=== PATIENT | female | born 1975 | race Caucasian/White ===

== ENCOUNTER 2016-09-18 14:23 | Emergency (ER) | payer OTHER ==
[~2016-09-18] VITALS: Ht 167.6 cm; Wt 81.0 kg
[2016-09-18 15:18] VITALS: Ht 167.6 cm; Wt 81.0 kg
--- NOTE | 2016-09-18 17:18 | ERD ---
ER Documentation Chief Complaint Date/Time DATE: 09/18/16 TIME: 17:17 Chief Complaint VAG BLEEDING AND 9 WEEKS HPI This is a 40-year-old female who presents to the emergency department today complaining of some vaginal bleeding that started stable she was at work. Patient states she is 9 weeks . Patient states she is scheduled to see her [employer] M[employer]INE on October 03. She has some nausea. Denies any abdominal pain, fevers or chills. ROS All systems reviewed and are negative except as per history of present illness. Medications Home Meds Active Scripts Ondansetron Hcl* (Zofran*) 4 Mg Tablet, 4 MG PO Q6H for NAUSEA AND/OR VOMITING, #30 TAB Prov:BERHANE PARSONS PA-C 09/18/16 Acetaminophen* (Tylophen*) 500 Mg Capsule, 1 CAP PO Q6H Y for PAIN AND OR ELEVATED TEMP, #30 CAP Prov:BERHANE PARSONS PA-C 09/18/16 Allergies Allergies: Coded Allergies: No Known Allergies (Verified Allergy, Mild, 07/07/16) PMhx/Soc History of Surgery: No Anesthesia Reaction: No Hx Neurological Disorder: No Hx Respiratory Disorders: No Hx Cardiac Disorders: No Hx Psychiatric Problems: No Hx Miscellaneous Medical Probl: Yes (DM) Hx Alcohol Use: No Hx Substance Use: No Hx Tobacco Use: No Physical Exam Vitals Vital Signs Date Time Temp Pulse Resp B/P Pulse Ox O2 Delivery O2 Flow Rate FiO2 09/18/16 15:18 98.5 84 18 110/68 98 Physical Exam Const: No acute distress Head: Atraumatic Eyes: Normal Conjunctiva ENT: Normal External Ears, Nose and Mouth. Neck: Full range of motion..~ No meningismus. Resp: Clear to auscultation bilaterally Cardio: Regular rate and rhythm, no murmurs Abd: Soft, non tender, non distended. Normal bowel sounds. No right lower quadrant pain. No left lower quadrant pain. Skin: No petechiae or rashes Back: No midline or flank tenderness Ext: No cyanosis, or edema Neur: Awake and alert Psych: Normal Mood and Affect Result Diagram: 09/18/16 9731 Results 24 hrs Laboratory Tests Test 09/18/16 17:28 09/18/16 17:55 Basophils # 0.010^3/ul Basophils % 0.4% Beta HCG, Quantitative 37508.0mIU/ml Blood Morphology Comment Eosinophils # 0.410^3/ul Eosinophils % 3.1% Hematocrit 41.5% Hemoglobin 13.9g/dl Lymphocytes # 3.310^3/ul Lymphocytes % 28.5% Mean Corpuscular Hemoglobin 28.3pg Mean Corpuscular Hemoglobin Concent 33.6g/dl Mean Corpuscular Volume 84.3fl Mean Platelet Volume 7.8fl Monocytes # 0.610^3/ul Monocytes % 4.8% Neutrophils # 7.210^3/ul Neutrophils % 63.2% Nucleated Red Blood Cells # 0.010^3/ul Nucleated Red Blood Cells % 0.0/100WBC Platelet Count 68472^3/UL Red Blood Count 4.9310^6/ul Red Cell Distribution Width 12.7% White Blood Count 11.410^3/ul Urine Bilirubin NEGATIVE Urine Clarity CLEAR Urine Color LT. YELLOW Urine Glucose 0.25%% Urine Hemoglobin NEGATIVE Urine Ketones NEGATIVE Urine Leukocyte Esterase NEGATIVE Urine Nitrite NEGATIVE Urine Specific [place] >=1.030 Urine Total Protein NEGATIVE Urine Urobilinogen 0.2 E.U./dL Urine pH 6.0 Procedures/MDM This is a 40-year-old female who presents to the emergency department complaining of vaginal bleeding that started today while at work. Patient is presently 9 weeks . Upon review of old medical records patient was seen here actually 4 months ago for vaginal bleeding in and had a miscarriage at that time. She was also seen approximately one month ago for elevated blood glucose after being sent here by her clinic. Given patient's vaginal bleeding at this time I did obtain an OB workup. Laboratory work shows a mildly elevated white blood cell count. She is not anemic. Her platelets are within normal limits. UA negative for infection. Rh status O+ beta Quant hCG 20938.0 Ultrasound shows a single live intrauterine with an estimated gestational age of 9 weeks and 2 days with estimated date of delivery of 2016. There is no free fluid or adnexal masses. There is a small subchorionic hemorrhage and this may be the cause of the patient's small vaginal bleeding. Patient did not have any pain on physical exam. Low suspicion for any acute surgical abdomen. She denied any medication for nausea. Patient will be given a prescription for Tylenol and Zofran. She was instructed to follow-up in the next [address] Holder office. At this time the patient is stable for discharge and outpatient management. Patient should follow up with their PCP in the next 1-2 days. They may return to the emergency department sooner for any persistent or worsening of symptoms. Patient understood and agreed with the plan. . Departure Diagnosis: Primary Impression: Vaginal bleeding in patient at less than 20 weeks gestation Additional Impression: Subchorionic hemorrhage in first trimester Condition: BERHANE Shannon PA-C Sep 18, 2016 17:18
[2016-09-18 17:36] LABS: BASOPHILS % 0.4 % (0.0-2.0); EOSINOPHILS # 0.4 10^3/ul (0.0-0.5); EOSINOPHILS % 3.1 % (0.0-7.0); HEMATOCRIT 41.5 % (37.0-47.0); HEMOGLOBIN 13.9 g/dl (12.0-16.0); LYMPHOCYTES # 3.3 10^3/ul (0.8-2.9); LYMPHOCYTES % 28.5 % (15.0-51.0); MEAN CORPUSCULAR HEMOGLOBIN 28.3 pg (29.0-33.0); MEAN CORPUSCULAR HGB CONC 33.6 g/dl (32.0-37.0); MEAN CORPUSCULAR VOLUME 84.3 fl (82.0-101.0); MEAN PLATELET VOLUME 7.8 fl (7.4-10.4); MONOCYTE # 0.6 10^3/ul (0.3-0.9); MONOCYTES % 4.8 % (0.0-11.0); NEUTROPHIL # 7.2 10^3/ul (1.6-7.5); NEUTROPHILS % 63.2 % (39.0-77.0); PLATELET COUNT 292 10^3/UL (140-440); RED BLOOD COUNT 4.93 10^6/ul (4.20-5.40); RED CELL DISTRIBUTION WIDTH 12.7 % (11.5-14.5); UNCORRECTED WBC 11.4 10^3/ul (4.8-10.8); WHITE BLOOD COUNT 11.4 10^3/ul (4.8-10.8)
[2016-09-18 17:39] LABS: CONDITION 1
[2016-09-18 18:30] LABS: ADD UMIC NO; URINE BILIRUBIN (Dip) NEGATIVE (NEGATIVE); URINE BLOOD (Dip) NEGATIVE (NEGATIVE); URINE COLOR LT. YELLOW (YELLOW); URINE KETONES (Dip) NEGATIVE (NEGATIVE); URINE LEUKOCYTE ESTERASE (Dip) NEGATIVE (NEGATIVE); URINE NITRITE (Dip) NEGATIVE (NEGATIVE); URINE TOTAL PROTEIN (Dip) NEGATIVE (NEGATIVE); URINE UROBILINOGEN (Dip) 0.2 E.U./dL (0.1-1.0)
[2016-09-18] MEDS ORDERED: ONDA4TAB8 PO (20:03)
[2016-09-18] MEDS ORDERED: ACET500C5 PO (20:03)
== END 2016-09-18 20:19 | disposition home or self-care (01) ==
LOC: FTE 14:23
DX: O20.9 Hemorrhage in early pregnancy, unspecified (principal); O24.111 Pre-existing type 2 diabetes mellitus, in pregnancy, first trimester; E11.9 Type 2 diabetes mellitus without complications; R11.0 Nausea; Z3A.09 9 weeks gestation of pregnancy
CPT/HCPCS: 36415; 76801; 81003; 84702; 85025; 86900; 86901; Z7502

== ENCOUNTER 2016-09-24 18:24 | Emergency (ER) | payer OTHER ==
[~2016-09-24] VITALS: Ht 170.2 cm; Wt 83.5 kg
[~2016-09-24 18:24] MED LIST: ACET500C5 PO; ONDA4TAB8 PO
[2016-09-24 18:39] VITALS: Ht 170.2 cm; Wt 83.5 kg
--- NOTE | 2016-09-24 19:42 | ERD ---
ER Documentation Chief Complaint Date/Time DATE: 09/24/16 TIME: 19:41 Chief Complaint 10 WKS . STARTED HAVING LLQ PAIN TODAY AND SCANT VAG BLEED HPI 40-year-old female presents here in emergency department for complaints of left upper quadrant abdominal pain, vaginal bleeding started today. Patient is approximately 10 weeks . Patient is 5 para 2 2. Last menstruation 07/06/2016. Patient is complaining of left lower quadrant abdominal pain, sharp pain, 4/10 scale, intermittent accompanying the vaginal bleeding. Patient left prescribed. Patient denies any fever or chills. Patient denies any diarrhea or constipation. Patient denies any vomiting. ROS All systems reviewed and are negative except as per history of present illness. Medications Home Meds Active Scripts Ondansetron Hcl* (Zofran*) 4 Mg Tablet, 4 MG PO Q6H for NAUSEA AND/OR VOMITING, #30 TAB Prov:BERHANE PARSONS PA-C 09/18/16 Acetaminophen* (Tylophen*) 500 Mg Capsule, 1 CAP PO Q6H Y for PAIN AND OR ELEVATED TEMP, #30 CAP Prov:BERHANE PARSONS PA-C 09/18/16 Allergies Allergies: Coded Allergies: No Known Allergies (Verified Allergy, Mild, 07/07/16) PMhx/Soc Medical and Surgical Hx: pt denies Surgical Hx History of Surgery: No Anesthesia Reaction: No Hx Neurological Disorder: No Hx Respiratory Disorders: No Hx Cardiac Disorders: No Hx Psychiatric Problems: No Hx Miscellaneous Medical Probl: Yes (DM) Hx Alcohol Use: No Hx Substance Use: No Hx Tobacco Use: No Smoking Status: Never smoker FmHx Family History: No coronary disease, No diabetes, No other Physical Exam Vitals Vital Signs Date Time Temp Pulse Resp B/P Pulse Ox O2 Delivery O2 Flow Rate FiO2 09/24/16 18:39 98.0 83 16 114/69 99 Physical Exam GENERAL: The patient is well developed and appropriate for usual state of health, in no apparent distress. CHEST: Clear to auscultation bilaterally. There are no rales, wheezes or rhonchi. HEART: Regular rate and rhythm. No murmurs, clicks, rubs or gallops. No S3 or S4. ABDOMEN: Soft, nontender and nondistended. Good bowel sounds. No rebound or guarding. No gross peritonitis. No gross organomegaly or masses. No Harkins sign or McBurney point tenderness. BACK: No midline or flank tenderness. EXTREMITIES: Equal pulses bilaterally. There is no peripheral clubbing, cyanosis or edema. No focal swelling or erythema. Full range of motion. Grossly neurovascularly intact. NEURO: Alert and oriented. Cranial nerves 2-12 intact. Motor strength in all 4 extremities with 5/5 strength. Sensation grossly intact. Normal speech and gait. SKIN: There is no apparent rash or petechia. The skin is warm and dry. HEMATOLOGIC AND LYMPHATIC: There is no evidence of excessive bruising or lymphedema. No gross cervical, axillary, or inguinal lymphadenopathy. VAGINAL: Small amount of blood in the vaginal vault. The cervical os is closed. No neck for tenderness or cervical motion tenderness. Result Diagram: 09/24/16194409/24/161944 Results 24 hrs Laboratory Tests Test 09/24/16 19:45 Anion Gap 16 Basophils # 0.010^3/ul Basophils % 0.4% Beta HCG, Quantitative 48734.0mIU/ml Blood Morphology Comment Blood Urea Nitrogen 12mg/dl Calcium Level 9.6mg/dl Carbon Dioxide Level 26mmol/L Chloride Level 101mmol/L Creatinine 0.54mg/dl Eosinophils # 0.310^3/ul Eosinophils % 2.2% Glucose Level 261mg/dl Hematocrit 40.8% Hemoglobin 13.9g/dl Lymphocytes # 2.910^3/ul Lymphocytes % 24.3% Mean Corpuscular Hemoglobin 28.5pg Mean Corpuscular Hemoglobin Concent 34.0g/dl Mean Corpuscular Volume 83.9fl Mean Platelet Volume 8.4fl Monocytes # 0.510^3/ul Monocytes % 4.1% Neutrophils # 8.310^3/ul Neutrophils % 69.0% Nucleated Red Blood Cells # 0.010^3/ul Nucleated Red Blood Cells % 0.0/100WBC Platelet Count 16706^3/UL Potassium Level 4.2mmol/L Red Blood Count 4.8710^6/ul Red Cell Distribution Width 12.5% Sodium Level 139mmol/L Urine Bilirubin NEGATIVE Urine Clarity CLEAR Urine Color LT. YELLOW Urine Glucose >=1000% Urine Hemoglobin NEGATIVE Urine Ketones 15 Urine Leukocyte Esterase NEGATIVE Urine Nitrite NEGATIVE Urine Specific [place] 1.025 Urine Total Protein NEGATIVE Urine Urobilinogen 0.2 E.U./dL Urine pH 5.5 White Blood Count 12.110^3/ul PROCEDURE: OBSTETRICAL ULTRASOUND WITH ENDOVAGINAL IMAGES CLINICAL INDICATION: Patient experiencing Vaginal Bleed () TECHNIQUE: Multiple sonographic images of the pelvis were obtained utilizing a transabdominal and endovaginal technique. The images were reviewed on a PACS workstation. COMPARISON: None. LMP: 07/14/2016 FINDINGS: The uterus measures 10.6 x 6.6 x 8.3 cm. There is a single live intrauterine with heart rate of 153 beats per minute, mean sac diameter of 4.07 cm, and crown-rump length of 2.82 cm which is consistent with a gestational age of 9 weeks, 5 days . The estimated date of delivery by ultrasound is 04/24/2017 . The estimated gestational age by LMP is 10 weeks, 2 days . The estimated date of delivery by LMP is 04/20/2017 . Bilateral ovaries are not visualized. There are no abnormal adnexal masses. No significant pelvic free fluid is identified. IMPRESSION: Single live intrauterine consistent with a gestational age of 9 weeks , 5 days . The estimated date of delivery is 04/24/2017 . Dating by ultrasound is within 4 days of dating by LMP. Bilateral ovaries are not visualized. There are no abnormal adnexal masses. RPTAT: EE Physician Anahy Date Time Electronically viewed and signed by Physician Anahy on 09/24/2016 19:54 RA/ CC: LIONEL WALLS NP PROCEDURE: OBSTETRICAL ULTRASOUND WITH ENDOVAGINAL IMAGES CLINICAL INDICATION: Patient experiencing Vaginal Bleed () TECHNIQUE: Multiple sonographic images of the pelvis were obtained utilizing a transabdominal and endovaginal technique. The images were reviewed on a PACS workstation. COMPARISON: None. LMP: 07/14/2016 FINDINGS: The uterus measures 10.6 x 6.6 x 8.3 cm. There is a single live intrauterine with heart rate of 153 beats per minute, mean sac diameter of 4.07 cm, and crown-rump length of 2.82 cm which is consistent with a gestational age of 9 weeks, 5 days . The estimated date of delivery by ultrasound is 04/24/2017 . The estimated gestational age by LMP is 10 weeks, 2 days . The estimated date of delivery by LMP is 04/20/2017 . Bilateral ovaries are not visualized. There are no abnormal adnexal masses. No significant pelvic free fluid is identified. IMPRESSION: Single live intrauterine consistent with a gestational age of 9 weeks , 5 days . The estimated date of delivery is 04/24/2017 . Dating by ultrasound is within 4 days of dating by LMP. Bilateral ovaries are not visualized. There are no abnormal adnexal masses. RPTAT: EE Benji Lutz Physician Date Time Electronically viewed and signed by Benji Lutz Physician on 09/24/2016 19:54 RA/ CC: LIONEL WALLS GAME ARTIST Procedures/MDM Medical Decision Making: Patients vaginal bleeding is most likely consistent of possible threatened . Patient does not show any evidence of hypovolemic shock. Patients hemoglobin and hematocrit is stable. There is low suspicion for ectopic . GASPER results show a 9 week stable BetaHCG Quantitative is appropriate for The patient is Rh+, does not need RhoGAM this time. There is no signs of symptoms of dehydration. There is low suspicion for sepsis. Patient appears well and is hemodynamically stable. Disposition: Home. Condition: Stable Instructions: Patient is advised to do bed rest, avoid heavy lifting, and avoid having sex until cleared by OB doctor. Patient is advised to follow up with OB doctor or here at the ER in 48 hours for reevaluation of symptoms, repeat beta HCG quantitative and ultrasound. Patient is advised that is symptoms are worst, severe bleeding, dizziness, severe abdominal pain, fever, worst signs and symptoms to return to the emergency department immediately. Patient's diabetic symptoms have stabilized here in the emergency department and appear appropriate for outpatient management. No evidence at this time of diabetic ketoacidosis, hyperosmolar syndrome, or severe systemic infection. Departure Diagnosis: Primary Impression: Threatened Additional Impressions: Intrauterine Hyperglycemia Condition: Stable Patient Instructions: Possible Miscarriage (Threatened ) Additional Instructions: : Patient is advised to do bed rest, avoid heavy lifting, and avoid having sex until cleared by OB doctor. Patient is advised to follow up with OB doctor or here at the ER in 48 hours for reevaluation of symptoms, repeat beta HCG quantitative and ultrasound. Patient is advised that is symptoms are worst, severe bleeding, dizziness, severe abdominal pain, fever, worst signs and symptoms to return to the emergency department immediately. LIONEL WALLS NP Sep 24, 2016 19:42
--- NOTE | 2016-09-24 19:55 | RADRPT ---
PROCEDURE: OBSTETRICAL ULTRASOUND WITH ENDOVAGINAL IMAGES CLINICAL INDICATION: Patient experiencing Vaginal Bleed () TECHNIQUE: Multiple sonographic images of the pelvis were obtained utilizing a transabdominal and endovaginal technique. The images were reviewed on a PACS workstation. COMPARISON: None. LMP: 07/14/2016 FINDINGS: The uterus measures 10.6 x 6.6 x 8.3 cm. There is a single live intrauterine with heart rate of 153 beats per minute, mean sa c diameter of 4.07 cm, and crown-rump length of 2.82 cm which is consistent with a gestational age o f 9 weeks, 5 days . The estimated date of delivery by ultrasound is 04/24/2017 . The estimated gestational age by LMP is 10 weeks, 2 days . The estimated date of delivery by LMP is 04/20/2017 . Bilateral ovaries are not visualized. There are no abnormal adnexal masses. No significant pelvic free fluid is identified. IMPRESSION: Single live intrauterine consistent with a gestational age of 9 weeks, 5 days . The estimated date of delivery is 04/24/2017 . Dating by ultrasound is within 4 days of dating by LMP. Bilateral ovaries are not visualized. There are no abnormal adnexal masses. RPTAT: EE Physician Anahy Date Time Electronically viewed and signed by Physician Anahy on 09/24/2016 19:54 /
[2016-09-24 20:26] LABS: ADD UMIC NO; URINE BILIRUBIN (Dip) NEGATIVE (NEGATIVE); URINE BLOOD (Dip) NEGATIVE (NEGATIVE); URINE COLOR LT. YELLOW (YELLOW); URINE GLUCOSE (Dip) >=1000 % (NEGATIVE); URINE KETONES (Dip) 15 (NEGATIVE); URINE LEUKOCYTE ESTERASE (Dip) NEGATIVE (NEGATIVE); URINE NITRITE (Dip) NEGATIVE (NEGATIVE); URINE TOTAL PROTEIN (Dip) NEGATIVE (NEGATIVE); URINE UROBILINOGEN (Dip) 0.2 E.U./dL (0.1-1.0)
[2016-09-24 20:36] LABS: BASOPHILS % 0.4 % (0.0-2.0); EOSINOPHILS # 0.3 10^3/ul (0.0-0.5); EOSINOPHILS % 2.2 % (0.0-7.0); HEMATOCRIT 40.8 % (37.0-47.0); HEMOGLOBIN 13.9 g/dl (12.0-16.0); LYMPHOCYTES # 2.9 10^3/ul (0.8-2.9); LYMPHOCYTES % 24.3 % (15.0-51.0); MEAN CORPUSCULAR HEMOGLOBIN 28.5 pg (29.0-33.0); MEAN CORPUSCULAR VOLUME 83.9 fl (82.0-101.0); MEAN PLATELET VOLUME 8.4 fl (7.4-10.4); MONOCYTE # 0.5 10^3/ul (0.3-0.9); MONOCYTES % 4.1 % (0.0-11.0); NEUTROPHIL # 8.3 10^3/ul (1.6-7.5); PLATELET COUNT 296 10^3/UL (140-440); RED BLOOD COUNT 4.87 10^6/ul (4.20-5.40); RED CELL DISTRIBUTION WIDTH 12.5 % (11.5-14.5); UNCORRECTED WBC 12.1 10^3/ul (4.8-10.8); WHITE BLOOD COUNT 12.1 10^3/ul (4.8-10.8)
[2016-09-24 20:44] LABS: CONDITION 1
[2016-09-24 21:31] LABS: POTASSIUM 4.2 mmol/L (3.5-5.1)
[2016-09-24 21:34] LABS: CREATININE 0.54 mg/dl (0.44-1.00)
[2016-09-24 21:35] LABS: CALCIUM 9.6 mg/dl (8.4-10.2)
[2016-09-24 22:44] VITALS: BP 120/72; PULSE 70; RESP 16; TEMP 98
== END 2016-09-24 22:56 | disposition home or self-care (01) ==
LOC: FTE 18:24
DX: O20.0 Threatened abortion (principal); O24.111 Pre-existing type 2 diabetes mellitus, in pregnancy, first trimester; E11.65 Type 2 diabetes mellitus with hyperglycemia; Z3A.09 9 weeks gestation of pregnancy
CPT/HCPCS: 36415; 76801; 80048; 81003; 84702; 85025; 86900; 86901; Z7502

== ENCOUNTER 2016-09-30 00:14 | Emergency (ER) | payer SELFPAY | END 2016-09-30 10:24 | disposition left against medical advice (07) | LOC: E/R 00:14 | DX: Z53.21 Procedure and treatment not carried out due to patient leaving prior to being seen by health care provider (principal) ==

== ENCOUNTER 2016-10-22 11:22 | Emergency (ER) | payer OTHER ==
[~2016-10-22] VITALS: Wt 75.0 kg
[2016-10-22] MEDS ORDERED: ACETAMINOPHEN 325 MG TAB PO STA (12:19)
--- NOTE | 2016-10-22 12:49 | ERD ---
ER Documentation Chief Complaint Date/Time DATE: 10/22/16 TIME: 12:45 Chief Complaint VAG BLEED AND 13 WKS PREG. NO ABD PAIN . NO DYSURIA PER PT HPI Patient is a 40 year old female Diabetic female on insulin who is who presents to the ED with light vaginal spotting x 1 day. She denies pelvic pain, abdominal pain, nausea, vomiting or diarrhea. Denies fever or chills. Denies polyuria, polydipsia, polyphagia. States her sugars are controlled. She also complaints of headache on and off for the last couple of months. She states she has a history of headache. She has not taken anything for her symptoms. States her LNMP was 07/06/17. Denies dizziness, blurry vision. Denies chest pain, shortness of breath or difficulty breathing or cough. ROS All systems reviewed and are negative except as per history of present illness. Medications Home Meds Active Scripts Acetaminophen* (Tylophen*) 500 Mg Capsule, 1 CAP PO Q6H Y for PAIN AND OR ELEVATED TEMP, #20 CAP Prov:ANNEMARIE DUPONT PA-C 10/22/16 Ondansetron Hcl* (Zofran*) 4 Mg Tablet, 4 MG PO Q6H for NAUSEA AND/OR VOMITING, #30 TAB Prov:BERHANE PARSONS PA-C 09/18/16 Acetaminophen* (Tylophen*) 500 Mg Capsule, 1 CAP PO Q6H Y for PAIN AND OR ELEVATED TEMP, #30 CAP Prov:BERHANE PARSONS PA-C 09/18/16 Allergies Allergies: Coded Allergies: No Known Allergies (Verified Allergy, Mild, 07/07/16) PMhx/Soc History of Surgery: No Anesthesia Reaction: No Hx Neurological Disorder: No Hx Respiratory Disorders: No Hx Cardiac Disorders: No Hx Psychiatric Problems: No Hx Miscellaneous Medical Probl: Yes (DM) Hx Alcohol Use: No Hx Substance Use: No Hx Tobacco Use: No FmHx Family History: diabetes Physical Exam Vitals Vital Signs Date Time Temp Pulse Resp B/P Pulse Ox O2 Delivery O2 Flow Rate FiO2 10/22/16 11:42 98.8 86 20 119/63 99 Physical Exam GENERAL: Well-developed, well-nourished female. Appears in no acute distress. HEAD: Normocephalic, atraumatic. EYES: Pupils are equally reactive bilaterally. EOMs grossly intact. No conjunctival erythema. ENT: Moist mucous membranes. No uvula deviation. No kissing tonsils. No exudates. LUNG: Clear to auscultation bilaterally. No rhonchi, wheezing, rales or coarse breath sounds. HEART: Regular rate and rhythm. No murmurs, rubs or gallops. ABDOMEN: No scars, ecchymosis or rashes noted. Soft, nontender, and nondistended. Positive bowel sounds in all four quadrants. No rebound tenderness , no guarding. (-) McBurneys point tenderness. No CVA tenderness. Extremities: Equal pulses bilaterally. No peripheral clubbing, cyanosis or edema. No unilateral leg swelling. NEUROLOGIC: Alert and oriented. Moving all four extremities. 5/5 strength in all extremities. Normal speech. Steady gait. Cranial nerves II through XII intact SKIN: Normal color. Warm and dry. No rashes or lesions. Capillary refill < 2 seconds Result Diagram: 10/22/16 1300 10/22/16 1300 Results 24 hrs Laboratory Tests Test 10/22/16 12:50 10/22/16 13:00 Urine Bilirubin NEGATIVE Urine Clarity CLEAR Urine Color LT. YELLOW Urine Glucose >=1000% Urine Hemoglobin NEGATIVE Urine Ketones 15 Urine Leukocyte Esterase NEGATIVE Urine Nitrite NEGATIVE Urine Specific [place] >=1.030 Urine Total Protein NEGATIVE Urine Urobilinogen 0.2 E.U./dL Urine pH 5.5 Alanine Aminotransferase (ALT/SGPT) 21IU/L Albumin 3.3g/dl Albumin/Globulin Ratio 1.10 Alkaline Phosphatase 66IU/L Anion Gap 15 Aspartate Amino Transf (AST/SGOT) 14IU/L Basophils # 0.110^3/ul Basophils % 0.4% Beta HCG, Quantitative 23509.0mIU/ml Blood Morphology Comment Blood Urea Nitrogen 12mg/dl Calcium Level 8.9mg/dl Carbon Dioxide Level 24mmol/L Chloride Level 103mmol/L Creatinine 0.39mg/dl Direct Bilirubin 0.00mg/dl Eosinophils # 0.210^3/ul Eosinophils % 1.9% Globulin 3.00g/dl Glucose Level 165mg/dl Hematocrit 35.3% Hemoglobin 12.0g/dl Indirect Bilirubin 0.0mg/dl Lymphocytes # 2.610^3/ul Lymphocytes % 20.5% Mean Corpuscular Hemoglobin 28.9pg Mean Corpuscular Hemoglobin Concent 34.1g/dl Mean Corpuscular Volume 84.8fl Mean Platelet Volume 8.1fl Monocytes # 0.510^3/ul Monocytes % 4.3% Neutrophils # 9.210^3/ul Neutrophils % 72.9% Nucleated Red Blood Cells # 0.010^3/ul Nucleated Red Blood Cells % 0.0/100WBC Platelet Count 45253^3/UL Potassium Level 4.1mmol/L Red Blood Count 4.1610^6/ul Red Cell Distribution Width 12.8% Sodium Level 138mmol/L Total Bilirubin 0.0mg/dl Total Protein 6.3g/dl White Blood Count 12.710^3/ul Current Medications Medications (Trade) Dose Ordered Sig/Rody Route PRN Reason Start Time Stop Time Status Last Admin Dose Admin Acetaminophen (Tylenol Tab) 650 mg ONCE STAT PO 10/22/16 12:19 10/22/16 12:22 DC 10/22/16 12:32 Procedures/MDM ER COURSE: I kept the patient and/or family informed of laboratory and diagnostic imaging results throughout the emergency room course. EKG, MONITORS, & DIAGNOSTIC IMAGING: [place] [id number] Radiology Main Line: [phone] DIAGNOSTIC IMAGING REPORT Patient: ISAURO MARES : 1975 Age: 40 Sex: F MR #: [id number] DOS: 10/22/16 1219 Ordering MD: ANNEMARIE DUPONT PA-C Location: [facility] Room/Bed: PROCEDURE: US OB. CLINICAL INDICATION: Vaginal bleeding TECHNIQUE: Transabdominal views of the pelvis are available for review. COMPARISON: 09/24/2016 FINDINGS: There is a single intrauterine gestation with the crown-rump length measuring 7.2 cm, corresponding to a gestational age of 13 weeks and 3 days. The heart rate is noted at 168 bpm. The ovaries are not visualized. There is no free fluid. RPTAT: AA IMPRESSION: Single live intrauterine with an estimated gestational age of 13 weeks and 3 days, based on ultrasound measurements. JAMES based on ultrasound measurements is 04/26/17. .Bigg Viveros MD, MD Date Time Electronically viewed and signed by .Bigg Viveros MD, MD on 10/22/2016 13: 33 .S/ CC: ANNEMARIE DUPONT PA-C MEDICATIONS: Tylenol. Patient tolerated medication well with no adverse reaction. LAB INTERPRETATION: CBC showed no evidence of systemic infection or severe anemia. CMP showed no evidence of electrolyte abnormalities, severe acidosis, alkalosis, renal failure , or liver disease. Lipase showed no evidence of acute pancreatitis. UA showed no evidence of leukocytes, nitrites or hematuria. [facility] [place]: O+ MEDICAL DECISION MAKING: This is a 40-year-old female who is diabetic who is who presents with vaginal bleeding.. Vital signs were reviewed. Patient is afebrile. Patient is not hypoxic. Patient is not toxic or ill-appearing. Patient has a threatened . Low suspicion for ectopic , , molar , endometriosis, PID, cervicitis, septic , molar , HELLP syndrome , preeclampsia, eclampsia, placenta previa, placenta abruptia. I consulted with Dr. Diaz who reviewed her laboratory studies. Patient does not show signs of DKA, HON K, hyperosmolar state. She does have greater than 1000 glucose in her urine but her blood pressure is within normal limits does not have proteinuria and is not acidotic. DISCHARGE: At this time, patient is stable for discharge and outpatient management with no new complaints during the ER course. Patient was sent home with tylenol. I have advised patient to do bedrest for 2 days and to have lots of fluids. Patient to follow-up with OB regarding her sugars in better management of her diabetes. Patient will be discharged home with instructions to recheck for new or worsening symptoms such as fever, nausea, weakness, LOC and to follow up with primary care in the next 1-2 days. Patient was advised to return to the ER for any new or worsening symptoms. Plan was discussed and patient and/or family understands and agrees. Home instructions were given. Departure Diagnosis: Primary Impression: Threatened Additional Impression: Hyperglycemia Condition: Stable ANNEMARIE DUPONT PA-C Oct 22, 2016 12:49
[2016-10-22 13:23] LABS: BASOPHIL # 0.1 10^3/ul (0.0-0.1); BASOPHILS % 0.4 % (0.0-2.0); EOSINOPHILS # 0.2 10^3/ul (0.0-0.5); EOSINOPHILS % 1.9 % (0.0-7.0); HEMATOCRIT 35.3 % (37.0-47.0); LYMPHOCYTES # 2.6 10^3/ul (0.8-2.9); LYMPHOCYTES % 20.5 % (15.0-51.0); MEAN CORPUSCULAR HEMOGLOBIN 28.9 pg (29.0-33.0); MEAN CORPUSCULAR HGB CONC 34.1 g/dl (32.0-37.0); MEAN CORPUSCULAR VOLUME 84.8 fl (82.0-101.0); MEAN PLATELET VOLUME 8.1 fl (7.4-10.4); MONOCYTE # 0.5 10^3/ul (0.3-0.9); MONOCYTES % 4.3 % (0.0-11.0); NEUTROPHIL # 9.2 10^3/ul (1.6-7.5); NEUTROPHILS % 72.9 % (39.0-77.0); PLATELET COUNT 265 10^3/UL (140-440); RED BLOOD COUNT 4.16 10^6/ul (4.20-5.40); RED CELL DISTRIBUTION WIDTH 12.8 % (11.5-14.5); UNCORRECTED WBC 12.7 10^3/ul (4.8-10.8); WHITE BLOOD COUNT 12.7 10^3/ul (4.8-10.8)
[2016-10-22 13:25] LABS: ALBUMIN 3.3 g/dl (3.3-4.9); CONDITION 1
[2016-10-22 13:26] LABS: POTASSIUM 4.1 mmol/L (3.5-5.1)
[2016-10-22 13:28] LABS: ALBUMIN/GLOBULIN RATIO 1.1; CREATININE 0.39 mg/dl (0.44-1.00); TOTAL PROTEIN 6.3 g/dl (6.1-8.1)
[2016-10-22 13:29] LABS: CALCIUM 8.9 mg/dl (8.4-10.2)
[2016-10-22 13:31] LABS: ADD UMIC NO; URINE BILIRUBIN (Dip) NEGATIVE (NEGATIVE); URINE BLOOD (Dip) NEGATIVE (NEGATIVE); URINE COLOR LT. YELLOW (YELLOW); URINE GLUCOSE (Dip) >=1000 % (NEGATIVE); URINE KETONES (Dip) 15 (NEGATIVE); URINE LEUKOCYTE ESTERASE (Dip) NEGATIVE (NEGATIVE); URINE NITRITE (Dip) NEGATIVE (NEGATIVE); URINE TOTAL PROTEIN (Dip) NEGATIVE (NEGATIVE); URINE UROBILINOGEN (Dip) 0.2 E.U./dL (0.1-1.0)
--- NOTE | 2016-10-22 13:33 | RADRPT ---
PROCEDURE: US OB. CLINICAL INDICATION: Vaginal bleeding TECHNIQUE: Transabdominal views of the pelvis are available for review. COMPARISON: 09/24/2016 FINDINGS: There is a single intrauterine gestation with the crown-rump length measuring 7.2 cm, corresponding to a gestational age of 13 weeks and 3 days. The heart rate is noted at 168 bpm. The ovaries are not visualized. There is no free fluid. RPTAT: AA IMPRESSION: Single live intrauterine with an estimated gestational age of 13 weeks and 3 days, based o n ultrasound measurements. JAMES based on ultrasound measurements is 04/26/17. .Bigg Viveros MD, MD Date Time Electronically viewed and signed by .Bigg Viveros MD, on 10/22/2016 13:33 .S/
[2016-10-22] MEDS ORDERED: ACET500C5 PO (14:13)
[2016-10-22 14:49] VITALS: BP 128/74; PULSE 75; RESP 19; TEMP 98.2
== END 2016-10-22 14:49 | disposition home or self-care (01) ==
LOC: FTE 11:22
DX: O20.0 Threatened abortion (principal); O24.111 Pre-existing type 2 diabetes mellitus, in pregnancy, first trimester; E11.65 Type 2 diabetes mellitus with hyperglycemia; Z3A.13 13 weeks gestation of pregnancy
CPT/HCPCS: 76801; 80053; 81003; 84702; 85025; 86900; 86901; Z7502; Z7610

== ENCOUNTER 2016-11-18 14:52 | Emergency (ER) | payer OTHER ==
[~2016-11-18] VITALS: Ht 170.2 cm; Wt 86.0 kg
[2016-11-18 14:57] VITALS: Ht 170.2 cm; Wt 86.0 kg
[2016-11-18 16:05] LABS: ADD SCAN DIFF NO
[2016-11-18 16:12] LABS: ADD UMIC NO; URINE BILIRUBIN (Dip) NEGATIVE (NEGATIVE); URINE BLOOD (Dip) NEGATIVE (NEGATIVE); URINE COLOR LT. YELLOW (YELLOW); URINE KETONES (Dip) TRACE (NEGATIVE); URINE LEUKOCYTE ESTERASE (Dip) NEGATIVE (NEGATIVE); URINE NITRITE (Dip) NEGATIVE (NEGATIVE); URINE TOTAL PROTEIN (Dip) NEGATIVE (NEGATIVE); URINE UROBILINOGEN (Dip) 0.2 E.U./dL (0.1-1.0)
--- NOTE | 2016-11-18 16:13 | RADRPT ---
PROCEDURE: US OB. CLINICAL INDICATION: Pelvic pain. TECHNIQUE: Multiple sonographic images of the pelvis were obtained. Transabdominal imaging only w as performed. COMPARISON: 10/22/2016. FINDINGS: The cervix is closed. Cardiac activity is present with 152 beats per minute. Measurements were made in order to determine age. The results are as follows: BPD = 17 w 6 d HC = 17 w 3 d AC = 20 w 2 d FL = 17 w 4 d Estimated weight is 261 g. The placenta is posterior, with no evidence of previa. Amniotic fluid volume is subjectively within normal limits. IMPRESSION: 1. Single, live intrauterine with estimated age of 18 weeks, 2 days. Estimated jorge e of delivery is 04/19/2017 on the basis of this examination. 2. No acute or significant abnormality. Recommend routine anatomic survey in 2 weeks. RPTAT: HEKC .Eros Moeller MD, Date Time Electronically viewed and signed by .Eros Moeller MD, MD on 11/18/2016 16:13 .C/
[2016-11-18 16:14] LABS: BASOPHILS % 0.2 % (0.0-2.0); EOSINOPHILS # 0.3 10^3/ul (0.0-0.5); EOSINOPHILS % 2.4 % (0.0-7.0); HEMATOCRIT 35.6 % (37.0-47.0); HEMOGLOBIN 11.8 g/dl (12.0-16.0); LYMPHOCYTES # 2.6 10^3/ul (0.8-2.9); LYMPHOCYTES % 21.4 % (15.0-51.0); MEAN CORPUSCULAR HEMOGLOBIN 28.2 pg (29.0-33.0); MEAN CORPUSCULAR HGB CONC 33.1 g/dl (32.0-37.0); MEAN PLATELET VOLUME 10.2 fl (7.4-10.4); MONOCYTE # 0.7 10^3/ul (0.3-0.9); MONOCYTES % 5.7 % (0.0-11.0); NEUTROPHIL # 8.5 10^3/ul (1.6-7.5); NEUTROPHILS % 69.6 % (39.0-77.0); PLATELET COUNT 273 10^3/UL (140-415); RED BLOOD COUNT 4.19 10^6/ul (4.20-5.40); WHITE BLOOD COUNT 12.2 10^3/ul (4.8-10.8)
--- NOTE | 2016-11-18 16:17 | ERD ---
ER Documentation Chief Complaint Date/Time DATE: 11/18/16 TIME: 16:14 Chief Complaint 16 weeks preg , wants to be checked , no movements x 2 days HPI Patient is a 41-year-old female who is with a last normal menstrual period 07/06/17 who presents the ED stating that she has not felt movements in 1 day. She states that her daughter fell on her abdomen 2 days ago and now states that she has no movement. She denies vaginal bleeding , pelvic pain, back pain, fever, chills, nausea, vomiting, diarrhea or constipation. She denies chest pain, cough, shortness of breath or difficulty breathing. No other complaints. ROS All systems reviewed and are negative except as per history of present illness. Medications Home Meds Active Scripts Acetaminophen* (Tylophen*) 500 Mg Capsule, 1 CAP PO Q6H Y for PAIN AND OR ELEVATED TEMP, #20 CAP Prov:ANNEMARIE DUPONT PA-C 10/22/16 Ondansetron Hcl* (Zofran*) 4 Mg Tablet, 4 MG PO Q6H for NAUSEA AND/OR VOMITING, #30 TAB Prov:BERHANE PARSONS PA-C 09/18/16 Acetaminophen* (Tylophen*) 500 Mg Capsule, 1 CAP PO Q6H Y for PAIN AND OR ELEVATED TEMP, #30 CAP Prov:BERHANE PARSONS PA-C 09/18/16 Allergies Allergies: Coded Allergies: No Known Allergies (Verified Allergy, Mild, 07/07/16) PMhx/Soc History of Surgery: No Anesthesia Reaction: No Hx Neurological Disorder: No Hx Respiratory Disorders: No Hx Cardiac Disorders: No Hx Psychiatric Problems: No Hx Miscellaneous Medical Probl: Yes (DM) Hx Alcohol Use: No Hx Substance Use: No Hx Tobacco Use: No Physical Exam Vitals Vital Signs Date Time Temp Pulse Resp B/P Pulse Ox O2 Delivery O2 Flow Rate FiO2 11/18/16 14:57 97.6 87 18 121/67 98 Physical Exam GENERAL: Well-developed, well-nourished female. Appears in no acute distress. HEAD: Normocephalic, atraumatic. EYES: Pupils are equally reactive bilaterally. EOMs grossly intact. No conjunctival erythema. ENT: Moist mucous membranes. No uvula deviation. No kissing tonsils. No exudates. NECK: Supple. No lymphadenopathy or thyromegaly. No meningismus. negative kernig. negative brudinski. LUNG: Clear to auscultation bilaterally. No rhonchi, wheezing, rales or coarse breath sounds. HEART: Regular rate and rhythm. No murmurs, rubs or gallops. ABDOMEN: No scars, ecchymosis or rashes noted. Soft, nontender, and nondistended. Positive bowel sounds in all four quadrants. No rebound tenderness , no guarding. (-) McBurneys point tenderness. No CVA tenderness. SKIN: Normal color. Warm and dry. No rashes or lesions. Capillary refill < 2 seconds Result Diagram: 11/18/16 1554 Results 24 hrs Laboratory Tests Test 11/18/16 15:53 11/18/16 15:54 Urine Bilirubin NEGATIVE Urine Clarity CLEAR Urine Color LT. YELLOW Urine Glucose 0.5%% Urine Hemoglobin NEGATIVE Urine Ketones TRACE Urine Leukocyte Esterase NEGATIVE Urine Nitrite NEGATIVE Urine Specific [place] >=1.030 Urine Total Protein NEGATIVE Urine Urobilinogen 0.2 E.U./dL Urine pH 5.5 Basophils # 0.010^3/ul Basophils % 0.2% Beta HCG, Quantitative 4904.0mIU/ml Eosinophils # 0.310^3/ul Eosinophils % 2.4% Hematocrit 35.6% Hemoglobin 11.8g/dl Lymphocytes # 2.610^3/ul Lymphocytes % 21.4% Mean Corpuscular Hemoglobin 28.2pg Mean Corpuscular Hemoglobin Concent 33.1g/dl Mean Corpuscular Volume 85.0fl Mean Platelet Volume 10.2fl Monocytes # 0.710^3/ul Monocytes % 5.7% Neutrophils # 8.510^3/ul Neutrophils % 69.6% Nucleated Red Blood Cells # 0.010^3/ul Nucleated Red Blood Cells % 0.0/100WBC Platelet Count 87067^3/UL Red Blood Count 4.1910^6/ul Red Cell Distribution Width 13.0% White Blood Count 12.210^3/ul Procedures/MDM ER COURSE: I kept the patient and/or family informed of laboratory and diagnostic imaging results throughout the emergency room course. EKG, MONITORS, & DIAGNOSTIC IMAGING: [place] [address] Radiology Main Line: [phone] DIAGNOSTIC IMAGING REPORT Patient: ISAURO MARES : 1975 Age: 41 Sex: F MR #: [id number] DOS: 11/18/16 1536 Ordering MD: ANNEMARIE DUPONT PA-C Location: [facility] Room/Bed: PROCEDURE: US OB. CLINICAL INDICATION: Pelvic pain. TECHNIQUE: Multiple sonographic images of the pelvis were obtained. Transabdominal imaging only was performed. COMPARISON: 10/22/2016. FINDINGS: The cervix is closed. Cardiac activity is present with 152 beats per minute. Measurements were made in order to determine age. The results are as follows: BPD = 17 w 6 d HC = 17 w 3 d AC = 20 w 2 d FL = 17 w 4 d Estimated weight is 261 g. The placenta is posterior, with no evidence of previa. Amniotic fluid volume is subjectively within normal limits. IMPRESSION: 1. Single, live intrauterine with estimated age of 18 weeks, 2 days. Estimated date of delivery is 04/19/2017 on the basis of this examination. 2. No acute or significant abnormality. Recommend routine anatomic survey in 2 weeks. RPTAT: HEKC .Eros Moeller MD, MD Date Time Electronically viewed and signed by .Eros Moeller MD, MD on 11/18/2016 16:13 .C/ CC: ANNEMARIE DUPONT PA-C LAB INTERPRETATION: CBC showed no evidence of systemic infection or severe anemia. UA showed no evidence of leukocytes, nitrites or hematuria. BHC RH: + MEDICAL DECISION MAKING: This is a with a last normal menstrual period approximately 07/06/17 who presents with ultrasound check. Vital signs were reviewed. Patient is afebrile. Patient is not hypoxic. Her ultrasound is read by radiologist shows a single live intrauterine with estimated age of 18 weeks, 2 days. I spoke with Dr. Silva who reviewed her imaging studies and stated that patient can be treated outpatient only and to follow-up with her OB doctor. Low suspicion for ovarian torsion, PID, tuboovarian abscess, ectopic , bowel obstruction, pyelonephritis, UTI, appendicitis, cervicitis, septic , molar , HELLP syndrome, preeclampsia, eclampsia, placenta previa, placenta abruptia. DISCHARGE: At this time, patient is stable for discharge and outpatient management with no new complaints during the ER course. Patient was sent home with copies of her imaging studies and lab.. Patient will be discharged home with instructions to recheck for new or worsening symptoms such as fever, nausea, weakness, LOC and to follow up with primary care in the next 1-2 days. Patient was advised to return to the ER for any new or worsening symptoms. Plan was discussed and patient and/or family understands and agrees. Home instructions were given. Departure Diagnosis: Primary Impression: Weeks of gestation: 18 weeks Qualified Code: Z3A.18 - 18 weeks gestation of Condition: Stable ANNEMARIE DUPONT PA-C Nov 18, 2016 16:17
== END 2016-11-18 17:42 | disposition home or self-care (01) ==
LOC: FTE 14:52
DX: O36.8120 Decreased fetal movements, second trimester, not applicable or unspecified (principal); O24.112 Pre-existing type 2 diabetes mellitus, in pregnancy, second trimester; E11.9 Type 2 diabetes mellitus without complications; R10.2 Pelvic and perineal pain; Z3A.18 18 weeks gestation of pregnancy
CPT/HCPCS: 36415; 76805; 81003; 84702; 85025; Z7502

== ENCOUNTER 2016-12-15 21:45 | Outpatient (CLI) | payer OTHER ==
[~2016-12-15] VITALS: Ht 170.2 cm; Wt 88.6 kg
[2016-12-15 22:08] VITALS: Ht 170.2 cm; Wt 88.6 kg
[2016-12-15] MEDS ORDERED: ACETAMINOPHEN 325 MG TAB PO ONE (22:30)
[2016-12-15 22:51] LABS: ADD SCAN DIFF NO
[2016-12-15 22:54] LABS: BASOPHILS % 0.3 % (0.0-2.0); EOSINOPHILS # 0.2 10^3/ul (0.0-0.5); EOSINOPHILS % 1.4 % (0.0-7.0); HEMATOCRIT 32.3 % (37.0-47.0); HEMOGLOBIN 10.9 g/dl (12.0-16.0); LYMPHOCYTES # 2.3 10^3/ul (0.8-2.9); LYMPHOCYTES % 20.5 % (15.0-51.0); MEAN CORPUSCULAR HEMOGLOBIN 28.8 pg (29.0-33.0); MEAN CORPUSCULAR HGB CONC 33.7 g/dl (32.0-37.0); MEAN CORPUSCULAR VOLUME 85.4 fl (82.0-101.0); MEAN PLATELET VOLUME 9.9 fl (7.4-10.4); MONOCYTE # 0.7 10^3/ul (0.3-0.9); MONOCYTES % 6.5 % (0.0-11.0); NEUTROPHIL # 7.9 10^3/ul (1.6-7.5); NEUTROPHILS % 70.3 % (39.0-77.0); PLATELET COUNT 233 10^3/UL (140-415); RED BLOOD COUNT 3.78 10^6/ul (4.20-5.40); RED CELL DISTRIBUTION WIDTH 13.1 % (11.5-14.5); WHITE BLOOD COUNT 11.2 10^3/ul (4.8-10.8)
[2016-12-15 22:54] LABS: ADD UMIC YES; URINE BILIRUBIN (Dip) NEGATIVE (NEGATIVE); URINE BLOOD (Dip) NEGATIVE (NEGATIVE); URINE COLOR LT. YELLOW (YELLOW); URINE KETONES (Dip) NEGATIVE (NEGATIVE); URINE LEUKOCYTE ESTERASE (Dip) 2+ (NEGATIVE); URINE NITRITE (Dip) NEGATIVE (NEGATIVE); URINE TOTAL PROTEIN (Dip) NEGATIVE (NEGATIVE); URINE UROBILINOGEN (Dip) 0.2 E.U./dL (0.1-1.0)
[2016-12-15 23:14] LABS: POTASSIUM 3.8 mmol/L (3.5-5.1)
[2016-12-15 23:16] LABS: ALBUMIN/GLOBULIN RATIO 0.96; BILIRUBIN,INDIRECT 0.1 mg/dl (0-1.1); BILIRUBIN,TOTAL 0.1 mg/dl (0.2-1.3); CREATININE 0.42 mg/dl (0.44-1.00); TOTAL PROTEIN 6.1 g/dl (6.1-8.1); URIC ACID 2.9 mg/dl (3.1-7.9)
[2016-12-15 23:17] LABS: CALCIUM 9.1 mg/dl (8.4-10.2)
[2016-12-15 23:30] LABS: BACTERIA,URINE MANY; SQUAMOUS EPITHELIAL CELL,UR MODERATE; URINE RBCS 0-2 /HPF (0)
--- NOTE | 2016-12-16 00:57 | QN ---
Documentation Comment 41 y/o at 21+ weeks with c/o headache. Patient denies abdominal pain, vaginal bleeding or leakage of fluid. Afebrile VSS Strip appropriate for GA Labs Normal After taking Tylenol, patient states her headache resolved and patien t feels better. D/C home. SUDHA LOBATO MD Dec 16, 2016 00:57
--- NOTE | 2016-12-16 01:25 | TRIAGE ---
OB Triage Datetime Report Generated by CPN: 12/16/2016 01:25 Datetime: 12/16/2016 00:45 Stage of : OB Triage Labor Evaluation Frequency: 0 Monitor Mode: External Resting Tone Manley: Relaxed Datetime: 12/16/2016 00:00 Stage of : OB Triage Labor Evaluation Frequency: 0 Monitor Mode: External Resting Tone Manley: Relaxed Datetime: 12/15/2016 23:42 Stage of : OB Triage Datetime: 12/15/2016 23:00 Stage of : OB Triage Maternal Assessment Level of Consciousness: Fully Conscious Labor Evaluation Frequency: NONE Monitor Mode: External Pain Assessment Pain Scale: 3 Pain Location: Head Datetime: 12/15/2016 22:23 Stage of : Labor Datetime: 12/15/2016 22:17 EGA: 21.3 Datetime: 12/15/2016 22:14 Stage of : OB Triage Pain Assessment Comments: TYLENOL 2 TAB 650MG PO GIVEN. Datetime: 12/15/2016 22:06 Time of Arrival: 12/15/2016 21:40 Arrived By: Ambulatory Arrived From: Home Chief Complaint: PT C/O HEADACHE Contractions: Denies/Absent Rupture of Membranes: Denies Vaginal Discharge: Denies Recent Sexual Intercouse: Denies Abdominal Trauma: Not Applicable Patient Complaints: Headache Additional Patient Complaints: INITIAL PHYSICAL ASSESSMENT, TOCO AND DOPPLAR APPLIED Time Provider Notified: 12/15/2016 21:50 Provider Notified: DELSHAD Initial Plan: VS, EFM, BP studies, CBC, CMP, URIC ACID, UA, BS Datetime: 12/15/2016 22:02 Stage of : OB Triage Maternal Assessment Level of Consciousness: Fully Conscious DTR's/Clonus: DTRs 2+; No Clonus Headache: Denies Blurred Vision: No Respiratory Effort: Unlabored; Regular Rhythm; Equal Expansion Breath Sounds, Left: Clear and Equal Breath Sounds, Right: Clear and Equal Nausea/Vomiting: Denies RUQ Epigastric Pain: Denies Lower Extremities Edema: None Upper Extremities Edema: None Facial Edema: None Temperature Route: Oral Fall Risk Assessment History of Falling: (0) No Secondary Diagnosis: (0) No Ambulatory Aid: (0) Bedrest/Nurse Assist IV Therapy: (0) No Gait: (0) Normal/Bedrest/Immobile Mental Status: (0) Oriented to Own Ability Fall Score: 0 Fall Risk Score Definition: No Risk: No action required Labor Evaluation Frequency: NONE Monitor Mode: External Heart Rate FHR Baseline Rate: 142 Monitor Mode: Doppler Pain Assessment Pain Scale: 7 Pain Presence: Constant Pain Type: Stabbing Pain Location: Head Pain Goal: 3 Datetime: 12/15/2016 21:50 Stage of : OB Triage
== END 2016-12-16 01:10 | disposition home or self-care (01) ==
LOC: OBT 21:45 → L-D 21:56 → OBT 12-16 01:10
PROVIDERS: ATTEND Obstetrics & Gynecology
DX: O26.892 Other specified pregnancy related conditions, second trimester (principal); R51 Headache; O09.522 Supervision of elderly multigravida, second trimester; Z3A.21 21 weeks gestation of pregnancy
CPT/HCPCS: 36415; 80053; 81001; 84560; 85025; Z7500; Z7610; 81003; G0463

== ENCOUNTER 2017-02-05 12:39 | Inpatient (IN) | payer OTHER ==
[~2017-02-05] VITALS: Ht 170.2 cm; Wt 90.9 kg
[2017-02-05] MEDS ORDERED: INSU100C SQ (13:05)
[2017-02-05] MEDS ORDERED: PRENAT PO (13:05)
[2017-02-05] MEDS ORDERED: LANT3I SC ×2 (13:05)
[2017-02-05 13:06] VITALS: BP 114/68; PULSE 84; RESP 18; Ht 170.2 cm; Wt 90.9 kg
--- NOTE | 2017-02-05 14:19 | RADRPT ---
PROCEDURE: Limited obstetric ultrasound CLINICAL INDICATION: Pain , labor TECHNIQUE: Multiple transverse and longitudinal grayscale images of the pelvis were obtained melvin sabdominally and transvaginally.. COMPARISON: 11/18/2016 FINDINGS: The cervix has a length of 2.8 cm. There is a trace amount of fluid within the cervix. There is a single viable intrauterine gestation. Cardiac activity is present with 140 beats per min rosanna. There is a vertex presentation. The placenta is posterior. There is no evidence for an abruption or placenta previa. RPTAT: AA IMPRESSION: Cervix length measures 2.8 cm. .Bigg Viveros MD, MD Date Time Electronically viewed and signed by .Bigg Viveros MD, MD on 02/05/2017 14:19 .S/
[2017-02-05 14:48] LABS: ADD UMIC NO; URINE BILIRUBIN (Dip) NEGATIVE (NEGATIVE); URINE BLOOD (Dip) NEGATIVE (NEGATIVE); URINE COLOR LT. YELLOW (YELLOW); URINE KETONES (Dip) TRACE (NEGATIVE); URINE LEUKOCYTE ESTERASE (Dip) NEGATIVE (NEGATIVE); URINE NITRITE (Dip) NEGATIVE (NEGATIVE); URINE TOTAL PROTEIN (Dip) NEGATIVE (NEGATIVE); URINE UROBILINOGEN (Dip) 0.2 E.U./dL (0.1-1.0)
[2017-02-05 15:30] LABS: BARBITURATES NEGATIVE (NEGATIVE); BENZODIAZEPINES NEGATIVE (NEGATIVE); CANNABINOIDS NEGATIVE (NEGATIVE); COCAINE NEGATIVE (NEGATIVE); OPIATES NEGATIVE (NEGATIVE)
--- NOTE | 2017-02-05 16:14 | TRIAGE ---
OB Triage Datetime Report Generated by CPN: 02/05/2017 16:13 Datetime: 02/05/2017 16:01 Bedside Blood Glucose: 69 Datetime: 02/05/2017 16:00 Stage of : OB Triage Maternal Assessment Level of Consciousness: Fully Conscious Labor Evaluation Frequency: 3UC/HR Monitor Mode: External Duration (sec)2399: 70-110 Quality: Mild Resting Tone Prien: Relaxed Heart Rate FHR Baseline Rate: 135 Monitor Mode: External US Variability: Moderate 6-25 bpm Accelerations: 10X10 Decelerations: None Pain Assessment Pain Scale: 0 Pain Goal: 3 Vaginal Exam Membrane Status: Intact Vaginal Bleeding: None Datetime: 02/05/2017 15:00 Stage of : OB Triage Maternal Assessment Level of Consciousness: Fully Conscious Labor Evaluation Frequency: 2UC/HR Monitor Mode: External Duration (sec)2399: 80 Quality: Mild Resting Tone Prien: Relaxed Heart Rate FHR Baseline Rate: 135 Monitor Mode: External US Variability: Moderate 6-25 bpm Accelerations: 10X10 Decelerations: None Pain Assessment Pain Scale: 0 Pain Goal: 3 Vaginal Exam Membrane Status: Intact Vaginal Bleeding: None Datetime: 02/05/2017 14:00 Stage of : OB Triage Maternal Assessment Level of Consciousness: Fully Conscious Labor Evaluation Frequency: NONE Monitor Mode: External Resting Tone Prien: Relaxed Heart Rate FHR Baseline Rate: 135 Monitor Mode: External US Variability: Moderate 6-25 bpm Accelerations: 10X10 Decelerations: None Pain Assessment Pain Scale: 0 Pain Goal: 3 Vaginal Exam Membrane Status: Intact Vaginal Bleeding: None Datetime: 02/05/2017 13:00 Time of Arrival: 02/05/2017 12:36 EGA: 29.4 Arrived By: Ambulatory Arrived From: Home Chief Complaint: C/O LOWER ABD PAIN AND LOWER BACK PAIN Movement: Present Contractions: Irregular Rupture of Membranes: Denies Vaginal Bleeding: None Vaginal Discharge: Denies Recent Sexual Intercouse: Denies Abdominal Trauma: Not Applicable Patient Complaints: Cramping; Back Pain Provider Notified: DELSHAD Initial Plan: CVL, FFN, UA, ROM PLUS Datetime: 02/05/2017 12:57 Monitor Mode: External Monitor Mode: External US Datetime: 12/15/2016 22:17 EGA: 22.1 Datetime: 12/15/2016 22:02 Fall Risk Assessment Fall Score: 0 Fall Risk Score Definition: No Risk: No action required
[2017-02-05] MEDS ORDERED: MAGNESIUM SULFATE 4 GM/100 ML 100 ML IV ONE (16:30)
[2017-02-05] MEDS: LACTATED RINGER'S 1,000 ML IV SCH (16:54)
[2017-02-05] MEDS ORDERED: GLUCOSE GEL 15 GRAM TUBE BUCCAL PRN (17:00)
[2017-02-05] MEDS ORDERED: DEXTROSE 50% 50 ML SYRINGE IV PRN ×2 (17:00)
[2017-02-05] MEDS ORDERED: GLUCOSE GEL 15 GRAM TUBE PO PRN ×2 (17:00)
[2017-02-05] MEDS ORDERED: GLUCAGON 1 MG INJ IM PRN (17:00)
[2017-02-05] MEDS: BETAMET NA PHOS/AC(6 MG/ML) 5ML INJ IM SCH (17:05)
[2017-02-05] MEDS: MAGNESIUM SULFATE 20 GM/500 ML 500 ML IV SCH (17:31)
[2017-02-05] MEDS: INSULIN ASPART [NOVOLOG] 3 ML PEN SC SCH ×2 (18:16→21:11)
[2017-02-05] MEDS: ACCU-CHEK XX SCH (20:58)
[2017-02-05] MEDS ORDERED: INSULIN GLARGINE [LANtus] 3 ML PEN SC SCH (21:00)
[2017-02-05] MEDS ORDERED: ACETAMINOPHEN 325 MG TAB PO PRN (23:00)
--- NOTE | 2017-02-06 00:18 | HP ---
DATE OF ADMISSION: 02/05/2017 HISTORY OF PRESENT ILLNESS: This is a 41-year-old female 5, para 1-1-2-2, estimated date of delivery 04/24/2017, at 29 weeks gestation presented with contractions. PAST MEDICAL HISTORY: Insulin-dependent diabetes. ALLERGIES: NO KNOWN ALLERGIES. FAMILY HISTORY: Diabetes. PHYSICAL EXAMINATION: VITAL SIGNS: The patient is afebrile. Vital signs stable. HEAD, NECK, AND CHEST: Within normal limits. ABDOMEN: Soft, nontender, and gravid. EXTREMITIES: Within normal limits. NEUROLOGIC: Within normal limits. On external monitoring contractions are noted. Workup in the obstetrics triage included fibro nectin, which was reported to be positive. A cervical length of 2.8. IMPRESSION: 1. at 29 weeks with insulin-dependent diabetes. 2. Threatened labor. PLAN: The case was discussed with Dr. Sherman, perinatologist, who recommends to admit the patient fo r tocolysis and course of corticosteroids for lung maturity. The patient is to be admitted to the antepartum. Intravenous magnesium sulfate for tocolysis, intramuscular betamethasone for lung maturity, and continue with insulin regimen. Will add sliding scale insulin coverage in case the patient's blood glucose increases due to the betamethasone. Dictated By: SUDHA DERAS/NTS Conf#: [id number] DID#: [id number]
[2017-02-06] MEDS: MAGNESIUM SULFATE 20 GM/500 ML 500 ML IV SCH ×2 (03:13→13:37)
[2017-02-06] MEDS: LACTATED RINGER'S 1,000 ML IV SCH ×2 (05:31→18:42)
[2017-02-06] MEDS: ACCU-CHEK XX SCH ×7 (08:00→20:01)
[2017-02-06] MEDS: INSULIN ASPART [NOVOLOG] 3 ML PEN SC SCH ×4 (08:47→17:24)
[2017-02-06] MEDS: MULTIVIT/MIN/FOLATE/IRON/PREN TAB PO SCH (08:56)
[2017-02-06] MEDS ORDERED: INSULIN GLARGINE [LANtus] 3 ML PEN SC SCH ×2 (09:00→20:00)
--- NOTE | 2017-02-06 14:27 | QN ---
Documentation Comment No complaint. Afebrile VSS Strip category I Patient' blood glucose elevated. Will request for Endocrinology consult. Continue with IV magnesium sulfate. SUDHA LOBATO MD February 06, 2017 14:27
--- NOTE | 2017-02-06 16:00 | CONS ---
Date/Time of Note Date/Time of Note DATE: 02/06/17 TIME: 15:55 Assessment/Plan Assessment/Plan Problems: (1) Nonalcoholic fatty liver disease Status: Chronic Comment: She has negative hepatitis B surface antigen will go ahead and do a hepatitis C antibody although I believe this is most likely related to the insulin resistance syndrome in her situation. (2) Hyperlipidemia Status: Chronic Comment: Noted. During she cannot be treated with statin therapy Qualifiers: Qualified Code: E78.00 - Pure hypercholesterolemia (3) Essential hypertension Status: Chronic Comment: Noted. No QIANA inhibitors or H2 receptor blockers during (4) Type 2 diabetes mellitus affecting in third trimester, antepartum Status: Chronic Comment: Her sugars have drifted upwards and she had only fair control coming into the hospital as noted by the A1c of 8.9. Will fine-tune this. Please note since she is going to have another dose of betamethasone and get him give her a small dose of NPH to help cover for the effect of the steroids. We will try and tighten up her control. Please note is quite tempting to add in the combination of low-dose metformin in the situation however I think that we will try not to cloud the situation and go with a more traditional approach. Lantus insulin is not as often use in and she had originally been prescribed Levemir. I am guessing that what happened here is her insurance refused to cover Levemir and hence the Lantus is what became of the insulin for basal therapy. Consultation Date/Type/Reason Admit Date/Time February 05, 2017 at 16:00 Date of Consultation: February 06, 2017 Type of Consultation: Endocrinology Reason for Consultation Diabetes mellitus type 2 on a basal bolus regimen; who is receiving steroids as a precaution in the setting of labor. Referring Provider: SUDHA LOBATO MD Hx of Present Illness Charming 41-year-old [place] woman Ab2 who is gone into labor. She has been treated with insulin over the last 12 years although she has a 15 year history of diabetes mellitus type 2. Prior to should been on combination orals and insulin. During the she has been managed by our colleagues in perinatology. She is come in and is receiving betamethasone due to labor at roughly 28 weeks gestation. Please see her A1c Constitutional: no complaints Eyes: no complaints ENT: no complaints Respiratory: no complaints Cardiovascular: no complaints Gastrointestinal: no complaints Genitourinary: no complaints Past Medical History Medical History: diabetes, high cholesterol, hypertension Past Surgical History Past Surgical Hx: no surgical history Family History Significant Family History: heart disease, diabetes Social History Alcohol Use: none Smoking Status: Never smoker Drug Use: none Exam/Review of Systems Vital Signs Vitals Vital Signs Date Time Temp Pulse Resp B/P Pulse Ox O2 Delivery O2 Flow Rate FiO2 02/05/17 13:06 98.1 84 18 114/68 Room Air Intake and Output 02/05/17 02/05/17 02/06/17 15:00 23:00 07:00 Intake Total 925 ml 1775 ml Output Total 400 ml 2850 ml Balance 525 ml -1075 ml Exam Gravid female in no esperanza distress Constitutional: alert, oriented Head: atraumatic, normocephalic Eyes: EOMI, nl conjunctiva, nl lids, nl sclera ENMT: mucosa pink and moist, nl external ears & nose, nl lips & teeth, nl nasal mucosa & septum Neck: non-tender, supple Respiratory: clear to auscultation, normal air movement Cardiovascular: nl pulses, regular rate and rhythm Gastrointestinal: nl liver, spleen, non-tender, soft Results Results 24 hrs Laboratory Tests Test 02/05/17 16:00 02/05/17 20:46 02/06/17 00:00 02/06/17 06:09 Bedside Glucose 69 L 157 Magnesium Level 4.0 H 4.5 H Test 02/06/17 08:37 02/06/17 11:07 02/06/17 12:15 02/06/17 12:47 Bedside Glucose 204 168 150 Hemoglobin A1c 8.9 H Magnesium Level 4.6 H Test 02/06/17 15:25 Bedside Glucose 178 Medications Medications Current Medications Prenat Multivit/ [employer] Panels Plater/Iron/Folic Ac 1 tab 1 tab DAILY PO Last administered on 02/06/17 08:56; Admin Dose 1 TAB; Start 02/06/17 at 09:00 Lactated Ringer's 1,000 ml @ 75 mls/hr [id number] IV Last administered on 05:31; Admin Dose 75 MLS/HR; Start 02/05/17 at 16:20 Magnesium Sulfate (Magnesium Sulfate 20 Gm/500 ml) 500 ml @ 50 mls/hr Q10H IV Last administered on 02/06/17 13:37; Admin Dose 50 MLS/HR; Start 02/05/17 at 16 :20 Betamethasone Acet/Betameth SodPhos (Celestone Soluspan) 12 mg Q24H IM Last administered on 02/05/17 17:05; Admin Dose 12 MG; Start 02/05/17 at 16:30; Stop 02/06/17 at 16:31 Miscellaneous Information 1 ea NOTE XX ; Start 02/05/17 at 17:00 Glucose (Glutose) 15 gm Q15M PRN PO DECREASED GLUCOSE; Start 02/05/17 at 17:00 Glucose (Glutose) 22.5 gm Q15M PRN PO DECREASED GLUCOSE; Start 02/05/17 at 17: 00 Dextrose (D50w Syringe) 25 ml Q15M PRN IV DECREASED GLUCOSE; Start 02/05/17 at 17:00 Dextrose (D50w Syringe) 50 ml Q15M PRN IV DECREASED GLUCOSE; Start 02/05/17 at 17:00 Glucagon (Glucagen) 1 mg Q15M PRN IM DECREASED GLUCOSE; Start 02/05/17 at 17:00 Glucose (Glutose) 15 gm Q15M PRN BUCCAL DECREASED GLUCOSE; Start 02/05/17 at 17 :00 Acetaminophen (Tylenol Tab) 650 mg Q6H PRN PO PAIN AND OR ELEVATED TEMP; Start 02/05/17 at 23:00 Insulin Glargine (Lantus) 60 unit DAILY@08 SC ; Start 02/07/17 at 08:00 Insulin Glargine (Lantus) 50 unit DAILY@20 SC ; Start 02/06/17 at 20:00 Diagnostic Test (Pha) (Accu-Chek) 1 ea FBSPP XX ; Start 02/06/17 at 14:00 Insulin Human NPH (Humulin N) 8 unit ONCE ONCE SC ; Start 02/06/17 at 16:15; Stop 02/06/17 at 16:16; Status RANDY KNIGHT MD February 06, 2017 16:00
[2017-02-06] MEDS ORDERED: NPH, HUMAN INSULIN ISOPHANE 3ML VIAL SC ONE (16:15)
[2017-02-06] MEDS: BETAMET NA PHOS/AC(6 MG/ML) 5ML INJ IM SCH (16:39)
[2017-02-06 17:29] LABS: THYROID STIMULATING HORMONE 0.876 MIU/L (0.465-4.680)
[2017-02-07] MEDS: MAGNESIUM SULFATE 20 GM/500 ML 500 ML IV SCH ×3 (00:08→18:20)
[2017-02-07] MEDS: LACTATED RINGER'S 1,000 ML IV SCH ×2 (07:32→20:19)
[2017-02-07] MEDS: ACCU-CHEK XX SCH ×5 (08:30→20:26)
[2017-02-07] MEDS: INSULIN GLARGINE [LANtus] 3 ML PEN SC SCH ×2 (09:04→20:20)
[2017-02-07] MEDS: INSULIN ASPART [NOVOLOG] 3 ML PEN SC SCH ×3 (09:06→17:44)
[2017-02-07] MEDS: MULTIVIT/MIN/FOLATE/IRON/PREN TAB PO SCH (09:17)
[2017-02-07] MEDS ORDERED: INSULIN ASPART [NOVOLOG] 3 ML PEN SC SCH (10:00)
--- NOTE | 2017-02-07 14:07 | CONS ---
Date/Time of Note Date/Time of Note DATE: 02/07/17 TIME: 14:02 Assessment/Plan Assessment/Plan Chief Complaint/Hosp Course Shea 41-year-old [place] woman Ab2 who is gone into labor. She has been treated with insulin over the last 12 years although she has a 15 year history of diabetes mellitus type 2. Prior to should been on combination orals and insulin. During the she has been managed by our colleagues in perinatology. She is come in and is receiving betamethasone due to labor at roughly 28 weeks gestation. Please see her A1c Problems: (1) Type 2 diabetes mellitus affecting in third trimester, antepartum Status: Chronic Comment: I am going to make sure to adjust the mealtime insulins. We should not be using insulin at the 2 hour postprandial Obdulio this is an information and range finding piece of data. The Lantus insulin needs to be adjusted to bring the fasting sugars under control which I will do. Overall much of this can be done as an outpatient but I can do a lot faster as an inpatient. I will work on this in the next day her discharge will be as per obstetrical indications with Dr. Lobato at ct Consultation Date/Type/Reason Admit Date/Time February 05, 2017 at 16:00 Initial Consult Date 02/06/17 Type of Consultation: Endocrinology Reason for Consultation Diabetes mellitus type 2 Referring Provider: SUDHA LOBATO MD 24 HR Interval Summary Free Text/Dictation Patient reports that her sugars are improving compared to what she had been living with at home Exam/Review of Systems Vital Signs Vitals Vital Signs Date Time Temp Pulse Resp B/P Pulse Ox O2 Delivery O2 Flow Rate FiO2 02/05/17 13:06 98.1 84 18 114/68 Room Air Intake and Output 02/06/17 02/06/17 02/07/17 15:00 23:00 07:00 Intake Total 1800 ml 2050 ml 1750 ml Output Total 2150 ml 2150 ml 2500 ml Balance -350 ml -100 ml -750 ml Exam No changes Results Results 24 hrs Laboratory Tests Test 02/06/17 15:25 02/06/17 16:20 02/06/17 17:16 02/06/17 18:13 Bedside Glucose 178 155 Thyroid Stimulating Hormone (TSH) 0.876 Hepatitis C Antibody NEGATIVE Magnesium Level 4.4 H Test 02/06/17 19:55 02/07/17 00:15 02/07/17 06:03 02/07/17 08:20 Bedside Glucose 185 189 Magnesium Level 4.7 H 4.7 H Test 02/07/17 08:22 02/07/17 11:10 02/07/17 11:52 02/07/17 13:26 Bedside Glucose 168 173 128 Magnesium Level 4.8 H Medications Medications Current Medications Prenat Multivit/ Daniels/Iron/Folic Ac 1 tab 1 tab DAILY PO Last administered on 02/07/17 09:17; Admin Dose 1 TAB; Start 02/06/17 at 09:00 Lactated Ringer's 1,000 ml @ 75 mls/hr [id number] IV Last administered on 07:32; Admin Dose 75 MLS/HR; Start 02/05/17 at 16:20 Magnesium Sulfate (Magnesium Sulfate 20 Gm/500 ml) 500 ml @ 50 mls/hr Q10H IV Last administered on 02/07/17 11:46; Admin Dose 50 MLS/HR; Start 02/05/17 at 16 :20 Miscellaneous Information 1 ea NOTE XX ; Start 02/05/17 at 17:00 Glucose (Glutose) 15 gm Q15M PRN PO DECREASED GLUCOSE; Start 02/05/17 at 17:00 Glucose (Glutose) 22.5 gm Q15M PRN PO DECREASED GLUCOSE; Start 02/05/17 at 17: 00 Dextrose (D50w Syringe) 25 ml Q15M PRN IV DECREASED GLUCOSE; Start 02/05/17 at 17:00 Dextrose (D50w Syringe) 50 ml Q15M PRN IV DECREASED GLUCOSE; Start 02/05/17 at 17:00 Glucagon (Glucagen) 1 mg Q15M PRN IM DECREASED GLUCOSE; Start 02/05/17 at 17:00 Glucose (Glutose) 15 gm Q15M PRN BUCCAL DECREASED GLUCOSE; Start 02/05/17 at 17 :00 Acetaminophen (Tylenol Tab) 650 mg Q6H PRN PO PAIN AND OR ELEVATED TEMP; Start 02/05/17 at 23:00 Insulin Glargine (Lantus) 60 unit DAILY@08 SC Last administered on 02/07/17 09 :04; Admin Dose 60 UNIT; Start 02/07/17 at 08:00 Insulin Glargine (Lantus) 50 unit DAILY@20 SC Last administered on 02/06/17t 20 :59; Admin Dose 50 UNIT; Start 02/06/17 at 20:00 Diagnostic Test (Pha) (Accu-Chek) 1 ea FBSPP XX ; Start 02/07/17 at 14:00 RANDY ERVIN MD February 07, 2017 14:07
--- NOTE | 2017-02-07 14:42 | CONS ---
DATE OF ADMISSION: 02/05/2017 DATE OF CONSULTATION: 02/07/2017 BRIEF NOTE: The patient was admitted to the hospital on 02/05/2017 after she was admitted for appar ently contractions and her cervical length was found to be about 2.8 or 2.9 cm. She was subsequentl y placed on magnesium and given betamethasone. She is also most likely type 1 diabetic, with poorly controlled diabetes. Diabetic management is with the heavy forger helper and in terms of her l abor, 24 hours after the second dose of betamethasone, the magnesium can be discontinued. Then if n ecessary Procardia, 20 mg every 6 hours, if blood pressures allow, can be started. If there is no c hange in the cervix and there are no contractions 12 hours after the stop of magnesium, the patient can be discharged home, if endocrinology is content with her diabetic control, which most likely alexandre l take a longer time as her diabetes was uncontrolled and now with the betamethasone the control is going to be more lengthy. In terms of the labor, 24 hours after the second dose of betameth asone magnesium can be discontinued. If necessary, Procardia can be started. If 12 hours after the stop of magnesium the patient can be discharged home as long as it is okay with the heavy forger helper . She has ultrasounds with US. Dictated By: SHALONDA LEW/BECKY Conf#: [id number] DID#: [id number]
--- NOTE | 2017-02-07 19:33 | QN ---
Documentation Comment No complaint Afebrile VSS Strip Reactive Patient is s/p 2 doses of betamethasone Will d/c magnesium sulfate DM management per Endocrinology. SUDHA LOBATO MD February 07, 2017 19:32
--- NOTE | 2017-02-07 21:08 | RADRPT ---
PROCEDURE: OB ultrasound for biophysical profile CLINICAL INDICATION: Biophysical profile. . TECHNIQUE: Multiple sonographic images of the pelvis were obtained. Transabdominal views are obta ined. COMPARISON: 02/05/2017 FINDINGS: Single intrauterine gestation. Presentation: Cephalic. Placenta: Posterior No evidence of placental abruption. Lower margin of the placenta is not directly visualized. A few small placental lakes are noted measu ring less than 1.0 cm. breathing movement = 2/2 tone = 2/2 motion = 2/2 ALETHEA = 2/2 ALETHEA = 15.0 cm heart rate: 156 beats per minute IMPRESSION: Single intrauterine gestation. Biophysical profile 04/23 RPTAT: AADD .Giovany Sood MD, MD Date Time Electronically viewed and signed by .Giovany Sood MD, on 02/07/2017 21:08 .B/
[2017-02-08] MEDS: ACCU-CHEK XX SCH ×3 (08:16→15:58)
--- NOTE | 2017-02-08 08:51 | PN ---
Date/Time of Note Date/Time of Note DATE: 02/08/17 TIME: 08:41 Assessment/Plan VTE Prophylaxis VTE Prophylaxis Intervention: other Assessment/Plan Chief Complaint/Hosp Course Shea 41-year-old [place] woman Ab2 who is gone into labor. She has been treated with insulin over the last 12 years although she has a 15 year history of diabetes mellitus type 2. Prior to should been on combination orals and insulin. During the she has been managed by our colleagues in perinatology. She is come in and is receiving betamethasone due to labor at roughly 28 weeks gestation. Please see her A1c Problems: (1) Type 2 diabetes mellitus affecting in third trimester, antepartum Status: Chronic Comment: Her sugar is coming into line. From an Endocrine standpoint she can be followed up in close follow as an outpatient next week to further adjust insulin. Please note I would be delighted to see her, but do not want to interfere with Maternal medicine directions especially as they have a relationship. I will do as Dr. Dunlap directs. Subjective 24 Hr Interval Summary Free Text/Dictation Patient reports no further contractions. No hypoglycemia Constitutional: no complaints Exam/Review of Systems Vital Signs Vitals Vital Signs Date Time Temp Pulse Resp B/P Pulse Ox O2 Delivery O2 Flow Rate FiO2 02/05/17 13:06 98.1 84 18 114/68 Room Air Intake and Output 02/07/17 02/07/17 02/08/17 15:00 23:00 07:00 Intake Total 1475 ml 1125 ml 1545 ml Output Total 1450 ml 1350 ml 2050 ml Balance 25 ml -225 ml -505 ml Exam No changes Results Results 24 hrs Laboratory Tests Test 02/07/17 11:10 02/07/17 11:52 02/07/17 13:26 02/07/17 15:29 Bedside Glucose 173 128 171 Magnesium Level 4.8 H Test 02/07/17 17:40 02/07/17 18:14 02/07/17 19:48 02/08/17 08:36 Bedside Glucose 144 161 93 Magnesium Level 4.5 H Medications Medications Current Medications Prenat Multivit/ [employer] Gener[employer] Inspector/Iron/Folic Ac 1 tab 1 tab DAILY PO Last administered on 02/07/17t 09:17; Admin Dose 1 TAB; Start 02/06/17 at 09:00 Lactated Ringer's (Lr) 1,000 ml @ 75 mls/hr [id number] IV Last administered on 20:19; Admin Dose 75 MLS/HR; Start 02/05/17 at 16:20 Miscellaneous Information 1 ea NOTE XX ; Start 02/05/17 at 17:00 Glucose (Glutose) 15 gm Q15M PRN PO DECREASED GLUCOSE; Start 02/05/17 at 17:00 Glucose (Glutose) 22.5 gm Q15M PRN PO DECREASED GLUCOSE; Start 02/05/17 at 17: 00 Dextrose (D50w Syringe) 25 ml Q15M PRN IV DECREASED GLUCOSE; Start 02/05/17 at 17:00 Dextrose (D50w Syringe) 50 ml Q15M PRN IV DECREASED GLUCOSE; Start 02/05/17 at 17:00 Glucagon (Glucagen) 1 mg Q15M PRN IM DECREASED GLUCOSE; Start 02/05/17 at 17:00 Glucose (Glutose) 15 gm Q15M PRN BUCCAL DECREASED GLUCOSE; Start 02/05/17 at 17 :00 Acetaminophen (Tylenol Tab) 650 mg Q6H PRN PO PAIN AND OR ELEVATED TEMP; Start 02/05/17 at 23:00 Insulin Glargine (Lantus) 60 unit DAILY@08 SC Last administered on 02/07/17 09 :04; Admin Dose 60 UNIT; Start 02/07/17 at 08:00 Diagnostic Test (Pha) (Accu-Chek) 1 ea FBSPP XX Last administered on 02/08/17 08:16; Admin Dose 1 EA; Start 02/07/17 at 14:00 Insulin Glargine (Lantus) 60 unit DAILY@20 SC Last administered on 02/07/17 20 :20; Admin Dose 60 UNIT; Start 02/07/17 at 20:00 RANDY ERVIN MD February 08, 2017 08:51
[2017-02-08] MEDS: INSULIN ASPART [NOVOLOG] 3 ML PEN SC SCH ×3 (09:03→17:43)
[2017-02-08] MEDS: INSULIN GLARGINE [LANtus] 3 ML PEN SC SCH ×2 (09:03→20:45)
[2017-02-08] MEDS: MULTIVIT/MIN/FOLATE/IRON/PREN TAB PO SCH (09:12)
[2017-02-08] MEDS: LACTATED RINGER'S 1,000 ML IV SCH (11:33)
--- NOTE | 2017-02-09 09:31 | DS ---
DATE OF ADMISSION: 02/05/2017 DATE OF DISCHARGE: 02/08/2017 ADMITTING DIAGNOSES: 1. at 29 weeks with insulin-dependent diabetes. 2. Threatened labor. HISTORY: A 41-year-old female 5, para 1-1-2-2, at 29 weeks' gestation presented with contra ctions. The patient was admitted on 02/05/2017. Per recommendation of perinatologist, the patient was given intravenous magnesium sulfate for tocolysis, intramuscular betamethasone was given for fet al lung maturity. The patient with history of insulin-dependent diabetes. Endocrinology consultati on was obtained to control the patient's diabetes. The patient's insulin regimen was adjusted by en docrinology. The patient was seen by perinatology. Recommendation of perinatologist was to discont inue magnesium sulfate after completing the course of betamethasone and to discharge the patient if no further contractions. On 02/08/2017, the patient was evaluated by endocrinology and cleared for discharge. CONDITION ON DISCHARGE: Stable. DISCHARGE INSTRUCTIONS 1. Diet: 2000 calorie ADA diet. 2. Activities: Modified bed rest at home. 3. Medications: Continue with insulin regimen per endocrinology. 4. Follow up in the office in 5 days. FINAL DIAGNOSES: 1. , not delivered. 2. Insulin-dependent diabetes. 3. Threatened labor. Dictated By: SUDHA DERAS/BECKY Conf#: [id number] DID#: [id number]
== END 2017-02-08 21:50 | disposition home or self-care (01) | DRG 781 ==
LOC: OBT 12:39 → L-D 12:42 → OBG 16:00 → OBT 16:00
PROVIDERS: ADMIT Obstetrics & Gynecology; ATTEND Obstetrics & Gynecology
DX: O24.113 Pre-existing type 2 diabetes mellitus, in pregnancy, third trimester (principal); O10.913 Unspecified pre-existing hypertension complicating pregnancy, third trimester; O47.03 False labor before 37 completed weeks of gestation, third trimester; E11.9 Type 2 diabetes mellitus without complications; O09.523 Supervision of elderly multigravida, third trimester; Z3A.29 29 weeks gestation of pregnancy; Z79.4 Long term (current) use of insulin
CPT/HCPCS: 76817; 76818; 80307; 81003; 82731; 82962; 83036; 83735; 84112; 84443; 86803; 87086; G0463; J0702; J1815; J3475; J7120

== ENCOUNTER 2017-03-06 12:56 | Outpatient (CLI) | payer OTHER ==
[~2017-03-06 12:56] MED LIST changes: -ACET500C5 PO; +LANT3I SC; -ONDA4TAB8 PO; +PRENAT PO
--- NOTE | 2017-03-06 14:06 | RADRPT ---
PROCEDURE: OB ultrasound for biophysical profile CLINICAL INDICATION: Biophysical profile. . Decreased movement TECHNIQUE: Multiple sonographic images of the pelvis were obtained. Transabdominal views are obta ined. COMPARISON: 03/04/2017 FINDINGS: Single intrauterine gestation. Presentation: Cephalic. Placenta: Posterior No evidence of placental abruption. No evidence of placenta previa. breathing movement = 2/2 tone = 2/2 motion = 2/2 ALETHEA = 2/2 ALETHEA = 15.2 cm heart rate: 118 beats per minute IMPRESSION: Single intrauterine gestation. Biophysical profile 04/23 RPTAT: AADD .Giovany Sood MD, MD Date Time Electronically viewed and signed by .Giovany Sood MD, on 03/06/2017 14:06 .B/
--- NOTE | 2017-03-06 14:23 | TRIAGE ---
OB Triage Datetime Report Generated by CPN: 03/06/2017 14:22 Datetime: 03/06/2017 14:08 Time of Arrival: 03/06/2017 12:52 EGA: 33.5 Arrived By: Ambulatory Arrived From: Office Chief Complaint: PT SENT FOR BPP/NST FOR C/O DFM Movement: Present Contractions: Denies/Absent Rupture of Membranes: Denies Vaginal Bleeding: None Vaginal Discharge: Denies Recent Sexual Intercouse: Denies Abdominal Trauma: Not Applicable Patient Complaints: None Additional Patient Complaints: BPP/NST Time Provider Notified: 03/06/2017 14:10 Provider Notified: DELSHAD Datetime: 03/06/2017 13:34 Monitor Mode: External Monitor Mode: External US Datetime: 02/08/2017 21:49 Stage of : Antepartum Datetime: 02/08/2017 21:38 Stage of : Antepartum Pain Presence: None/Denies Datetime: 02/08/2017 21:21 Stage of : Antepartum Datetime: 02/08/2017 21:00 Labor Evaluation Frequency: NONE Monitor Mode: External Pattern: Normal: <= 5 Contractions in 10 Minutes Resting Tone [place]: Relaxed Heart Rate FHR Baseline Rate: 130 Monitor Mode: External US Variability: Moderate 6-25 bpm Accelerations: 15X15 Decelerations: None Category: Category I Datetime: 02/08/2017 20:01 Labor Evaluation Frequency: NONE Monitor Mode: External Pattern: Normal: <= 5 Contractions in 10 Minutes Resting Tone [place]: Relaxed Heart Rate FHR Baseline Rate: 145 Variability: Moderate 6-25 bpm Accelerations: 15X15 Decelerations: None Category: Category I Datetime: 02/08/2017 19:45 Assessment Type: Ongoing Assessment Maternal Assessment Level of Consciousness: Fully Conscious DTR's/Clonus: DTRs 2+; No Clonus Headache: Denies Blurred Vision: No Respiratory Effort: Unlabored; Regular Rhythm; Equal Expansion Breath Sounds, Left: Clear and Equal Breath Sounds, Right: Clear and Equal Nausea/Vomiting: Denies RUQ Epigastric Pain: Denies Lower Extremities Edema: None Degree: None Upper Extremities Edema: None Degree: None Facial Edema: None Bedside Blood Glucose: 85 Fall Risk Assessment History of Falling: (0) No Secondary Diagnosis: (0) No Ambulatory Aid: (0) Bedrest/Nurse Assist IV Therapy: (0) No Gait: (0) Normal/Bedrest/Immobile Mental Status: (0) Oriented to Own Ability Fall Score: 0 Fall Risk Score Definition: No Risk: No action required Pain Presence: None/Denies Datetime: 02/08/2017 18:56 Labor Evaluation Frequency: 0 Monitor Mode: External Resting Tone [place]: Relaxed Heart Rate FHR Baseline Rate: 140 Monitor Mode: External US FHR Baseline Changes: No Baseline Change Variability: Moderate 6-25 bpm Accelerations: 15X15 Decelerations: None Category: Category I Datetime: 02/08/2017 17:38 Bedside Blood Glucose: 124 Datetime: 02/08/2017 17:00 Labor Evaluation Frequency: 0 Monitor Mode: External Resting Tone [place]: Relaxed Heart Rate FHR Baseline Rate: 140 Monitor Mode: External US FHR Baseline Changes: No Baseline Change Variability: Moderate 6-25 bpm Accelerations: 15X15 Decelerations: None Category: Category I Datetime: 02/08/2017 16:05 Labor Evaluation Frequency: 0 Monitor Mode: External Resting Tone [place]: Relaxed Heart Rate FHR Baseline Rate: 140 Monitor Mode: External US FHR Baseline Changes: No Baseline Change Variability: Moderate 6-25 bpm Accelerations: 15X15 Decelerations: None Category: Category I Datetime: 02/08/2017 15:10 Labor Evaluation Frequency: 0 Monitor Mode: External Resting Tone [place]: Relaxed Heart Rate FHR Baseline Rate: 140 Monitor Mode: External US FHR Baseline Changes: No Baseline Change Variability: Moderate 6-25 bpm Accelerations: 15X15 Decelerations: None Category: Category I Datetime: 02/08/2017 13:00 Labor Evaluation Frequency: 0 Monitor Mode: External Resting Tone [place]: Relaxed Heart Rate FHR Baseline Rate: 140 Monitor Mode: External US FHR Baseline Changes: No Baseline Change Variability: Moderate 6-25 bpm Accelerations: 15X15 Decelerations: None Category: Category I Datetime: 02/08/2017 12:59 Bedside Blood Glucose: 96 Datetime: 02/08/2017 11:02 Bedside Blood Glucose: 75 Datetime: 02/08/2017 10:58 Labor Evaluation Frequency: 2 Monitor Mode: External Duration (sec)2399: 40-50 Quality: Mild Resting Tone [place]: Relaxed Heart Rate FHR Baseline Rate: 140 Monitor Mode: External US FHR Baseline Changes: No Baseline Change Variability: Moderate 6-25 bpm Accelerations: 15X15 Decelerations: None Category: Category I Pain Presence: None/Denies Datetime: 02/08/2017 10:08 Labor Evaluation Frequency: 1 Monitor Mode: External Duration (sec)2399: 40 Quality: Mild Resting Tone [place]: Relaxed Datetime: 02/08/2017 10:05 Labor Evaluation Frequency: 0 Monitor Mode: External Resting Tone [place]: Relaxed Heart Rate FHR Baseline Rate: 130 Monitor Mode: External US FHR Baseline Changes: No Baseline Change Variability: Moderate 6-25 bpm Accelerations: 15X15 Decelerations: None Category: Category I Datetime: 02/08/2017 08:55 Labor Evaluation Frequency: 0 Monitor Mode: External Resting Tone [place]: Relaxed Heart Rate FHR Baseline Rate: 130 Monitor Mode: External US FHR Baseline Changes: No Baseline Change Variability: Moderate 6-25 bpm Accelerations: 15X15 Decelerations: None Category: Category I Pain Presence: None/Denies Datetime: 02/08/2017 08:53 Bedside Blood Glucose: 93 Datetime: 02/08/2017 08:11 Assessment Type: Ongoing Assessment Maternal Assessment Level of Consciousness: Fully Conscious DTR's/Clonus: DTRs 2+; No Clonus Headache: Denies Blurred Vision: No Respiratory Effort: Unlabored; Regular Rhythm; Equal Expansion Breath Sounds, Left: Clear and Equal Breath Sounds, Right: Clear and Equal Nausea/Vomiting: Denies RUQ Epigastric Pain: Denies Facial Edema: None Fall Risk Assessment History of Falling: (0) No Secondary Diagnosis: (0) No Ambulatory Aid: (0) Bedrest/Nurse Assist IV Therapy: (0) No Gait: (0) Normal/Bedrest/Immobile Mental Status: (0) Oriented to Own Ability Fall Score: 0 Fall Risk Score Definition: No Risk: No action required Datetime: 02/08/2017 07:36 Labor Evaluation Frequency: 9 Monitor Mode: External Resting Tone [place]: Relaxed Heart Rate FHR Baseline Rate: 135 FHR Baseline Changes: No Baseline Change Variability: Moderate 6-25 bpm Accelerations: 15X15 Decelerations: None Category: Category I Datetime: 02/08/2017 06:00 Labor Evaluation Frequency: x4 Monitor Mode: External Duration (sec)2399: 40-50 Quality: Mild Resting Tone [place]: Relaxed Heart Rate FHR Baseline Rate: 140 Monitor Mode: External US Variability: Moderate 6-25 bpm Accelerations: 15X15 Decelerations: None Category: Category I Comments: loss of contact due to mternal movements. Pain Presence: None/Denies Pain Type: N/A Datetime: 02/08/2017 05:00 Labor Evaluation Frequency: x1 Monitor Mode: External Duration (sec)2399: 60 Quality: Mild Resting Tone [place]: Relaxed Heart Rate FHR Baseline Rate: 135 Monitor Mode: External US Variability: Moderate 6-25 bpm Accelerations: 15X15 Decelerations: None Category: Category I Pain Presence: None/Denies Pain Type: N/A Datetime: 02/08/2017 04:00 Labor Evaluation Frequency: x1 Monitor Mode: External Duration (sec)2399: 80 Quality: Mild Resting Tone [place]: Relaxed Heart Rate FHR Baseline Rate: 140 Monitor Mode: External US Variability: Moderate 6-25 bpm Accelerations: 15X15 Decelerations: None Category: Category I Datetime: 02/08/2017 03:00 Labor Evaluation Frequency: X2 Monitor Mode: External Duration (sec)2399: 80-90 Quality: Mild Resting Tone [place]: Relaxed Heart Rate FHR Baseline Rate: 135 Monitor Mode: External US Variability: Moderate 6-25 bpm Accelerations: 15X15 Decelerations: None Category: Category I Datetime: 02/08/2017 02:00 Labor Evaluation Frequency: X1 Monitor Mode: External Duration (sec)2399: 60 Quality: Mild Resting Tone [place]: Relaxed Heart Rate FHR Baseline Rate: 135 Monitor Mode: External US Variability: Moderate 6-25 bpm Accelerations: 15X15 Decelerations: None Category: Category I Pain Presence: None/Denies Pain Type: N/A Datetime: 02/08/2017 01:43 Stage of : Antepartum Datetime: 02/08/2017 01:00 Labor Evaluation Frequency: X1 Monitor Mode: External Duration (sec)2399: 70 Resting Tone [place]: Relaxed Heart Rate FHR Baseline Rate: 135 Monitor Mode: External US Variability: Moderate 6-25 bpm Accelerations: 15X15 Decelerations: None Category: Category I Pain Presence: None/Denies Pain Type: N/A Datetime: 02/08/2017 00:00 Labor Evaluation Frequency: 0 Monitor Mode: External Duration (sec)2399: DENIES Resting Tone [place]: Relaxed Heart Rate FHR Baseline Rate: 135 Monitor Mode: External US Variability: Moderate 6-25 bpm Accelerations: 15X15 Decelerations: None Category: Category I Pain Presence: None/Denies Pain Type: N/A Datetime: 02/07/2017 23:00 Labor Evaluation Frequency: 0 Monitor Mode: External Duration (sec)2399: DENIES Resting Tone [place]: Relaxed Heart Rate FHR Baseline Rate: 140 Monitor Mode: External US Variability: Moderate 6-25 bpm Accelerations: 10X10 Decelerations: None Category: Category I Pain Presence: None/Denies Pain Type: N/A Datetime: 02/07/2017 22:00 Labor Evaluation Frequency: 0 Monitor Mode: External Resting Tone [place]: Relaxed Heart Rate FHR Baseline Rate: 135 Monitor Mode: External US Variability: Moderate 6-25 bpm Accelerations: 15X15 Decelerations: None Category: Category I Pain Presence: None/Denies Datetime: 02/07/2017 21:00 Labor Evaluation Frequency: X3 Monitor Mode: External Duration (sec)2399: 40-60 Quality: Mild Resting Tone [place]: Relaxed Heart Rate FHR Baseline Rate: 135 Monitor Mode: External US Variability: Moderate 6-25 bpm Accelerations: 15X15 Decelerations: None Category: Category I Pain Presence: None/Denies Datetime: 02/07/2017 20:51 Comments: US DONE. Datetime: 02/07/2017 20:40 Comments: US AT BEDSIDE. Datetime: 02/07/2017 20:00 Labor Evaluation Frequency: X2 Monitor Mode: External Duration (sec)2399: 40-70 Quality: Mild Resting Tone [place]: Relaxed Heart Rate FHR Baseline Rate: 135 Monitor Mode: External US Variability: Moderate 6-25 bpm Accelerations: 15X15 Decelerations: None Category: Category I Pain Presence: None/Denies Pain Type: N/A Datetime: 02/07/2017 19:48 Bedside Blood Glucose: 161 Datetime: 02/07/2017 19:20 Stage of : Antepartum Assessment Type: Ongoing Assessment Maternal Assessment Level of Consciousness: Fully Conscious DTR's/Clonus: DTRs 2+; No Clonus Headache: Denies Blurred Vision: No Respiratory Effort: Unlabored; Regular Rhythm; Equal Expansion Breath Sounds, Left: Clear and Equal Breath Sounds, Right: Clear and Equal Nausea/Vomiting: Denies RUQ Epigastric Pain: Denies Lower Extremities Edema: None Degree: None Upper Extremities Edema: None Degree: None Facial Edema: None Temperature Route: Oral Fall Risk Assessment History of Falling: (0) No Secondary Diagnosis: (0) No Ambulatory Aid: (0) Bedrest/Nurse Assist IV Therapy: (0) No Gait: (0) Normal/Bedrest/Immobile Mental Status: (0) Oriented to Own Ability Fall Score: 0 Fall Risk Score Definition: No Risk: No action required Pain Presence: None/Denies Datetime: 02/07/2017 18:46 Labor Evaluation Frequency: 0 Monitor Mode: External Resting Tone [place]: Relaxed Heart Rate FHR Baseline Rate: 130 Monitor Mode: External US FHR Baseline Changes: No Baseline Change Variability: Moderate 6-25 bpm Accelerations: 15X15 Decelerations: None Category: Category I Datetime: 02/07/2017 18:02 Labor Evaluation Frequency: 3/hr Monitor Mode: External Duration (sec)2399: 40-60 Quality: Mild Resting Tone [place]: Relaxed Heart Rate FHR Baseline Rate: 130 Monitor Mode: External US FHR Baseline Changes: No Baseline Change Variability: Moderate 6-25 bpm Accelerations: 15X15 Decelerations: None Category: Category I Pain Presence: None/Denies Datetime: 02/07/2017 17:02 DTR's/Clonus: DTRs 2+ Labor Evaluation Frequency: 1 Monitor Mode: External Duration (sec)2399: 50 Quality: Mild Resting Tone [place]: Relaxed Heart Rate FHR Baseline Rate: 130 Monitor Mode: External US FHR Baseline Changes: No Baseline Change Variability: Moderate 6-25 bpm Accelerations: 15X15 Decelerations: None Category: Category I Pain Presence: None/Denies Datetime: 02/07/2017 16:01 Pain Presence: None/Denies Datetime: 02/07/2017 16:00 Labor Evaluation Frequency: 0 Monitor Mode: External Resting Tone [place]: Relaxed Heart Rate FHR Baseline Rate: 135 Monitor Mode: External US FHR Baseline Changes: No Baseline Change Variability: Moderate 6-25 bpm Accelerations: 15X15 Decelerations: None Category: Category I Datetime: 02/07/2017 15:27 Bedside Blood Glucose: 171 Datetime: 02/07/2017 15:15 Labor Evaluation Frequency: 0 Monitor Mode: External Resting Tone [place]: Relaxed Heart Rate FHR Baseline Rate: 130 Monitor Mode: External US FHR Baseline Changes: No Baseline Change Variability: Moderate 6-25 bpm Accelerations: 15X15 Decelerations: None Category: Category I Datetime: 02/07/2017 13:58 Breath Sounds, Left: Clear and Equal Breath Sounds, Right: Clear and Equal Labor Evaluation Frequency: 0 Monitor Mode: External Resting Tone [place]: Relaxed Heart Rate FHR Baseline Rate: 130 Monitor Mode: External US FHR Baseline Changes: No Baseline Change Variability: Moderate 6-25 bpm Accelerations: 15X15 Decelerations: Variable Category: Category II Datetime: 02/07/2017 13:26 Bedside Blood Glucose: 128 Datetime: 02/07/2017 13:22 Maternal Assessment Level of Consciousness: Fully Conscious DTR's/Clonus: DTRs 1+ Blurred Vision: No Nausea/Vomiting: Denies RUQ Epigastric Pain: Denies Facial Edema: None Labor Evaluation Frequency: 0 Monitor Mode: External Resting Tone [place]: Relaxed Heart Rate FHR Baseline Rate: 130 Monitor Mode: External US FHR Baseline Changes: No Baseline Change Variability: Moderate 6-25 bpm Accelerations: 15X15 Decelerations: None Category: Category I Datetime: 02/07/2017 12:01 Labor Evaluation Frequency: 1 Monitor Mode: External Duration (sec)2399: 60 Quality: Mild Resting Tone [place]: Relaxed Heart Rate FHR Baseline Rate: 135 Monitor Mode: External US FHR Baseline Changes: No Baseline Change Variability: Moderate 6-25 bpm Accelerations: 15X15 Decelerations: None Category: Category I Pain Presence: None/Denies Datetime: 02/07/2017 11:10 Bedside Blood Glucose: 173 Datetime: 02/07/2017 11:03 Labor Evaluation Frequency: 0 Monitor Mode: External Quality: Mild Resting Tone [place]: Relaxed Heart Rate FHR Baseline Rate: 135 Monitor Mode: External US FHR Baseline Changes: No Baseline Change Variability: Moderate 6-25 bpm Accelerations: 15X15 Decelerations: None Category: Category I Pain Presence: None/Denies Datetime: 02/07/2017 09:59 Labor Evaluation Frequency: 0 Monitor Mode: External Resting Tone [place]: Relaxed Heart Rate FHR Baseline Rate: 135 Monitor Mode: External US FHR Baseline Changes: No Baseline Change Variability: Moderate 6-25 bpm Accelerations: 15X15 Decelerations: None Category: Category I Datetime: 02/07/2017 09:16 Maternal Assessment Level of Consciousness: Fully Conscious DTR's/Clonus: DTRs 1+ Blurred Vision: No Breath Sounds, Left: Clear and Equal Breath Sounds, Right: Clear and Equal Nausea/Vomiting: Denies Facial Edema: None Labor Evaluation Frequency: 2/hr Monitor Mode: External Duration (sec)2399: 100 Quality: Mild Resting Tone [place]: Relaxed Heart Rate FHR Baseline Rate: 130 Monitor Mode: External US FHR Baseline Changes: No Baseline Change Variability: Moderate 6-25 bpm Accelerations: 15X15 Decelerations: None Category: Category I Datetime: 02/07/2017 08:22 Bedside Blood Glucose: 168 Datetime: 02/07/2017 08:12 Maternal Assessment Level of Consciousness: Fully Conscious DTR's/Clonus: DTRs 1+ Headache: Denies Blurred Vision: No Breath Sounds, Left: Clear and Equal Breath Sounds, Right: Clear and Equal Nausea/Vomiting: Denies RUQ Epigastric Pain: Denies Facial Edema: None Bedside Blood Glucose: 189 Labor Evaluation Frequency: 1 Monitor Mode: External Duration (sec)2399: 50 Quality: Mild Resting Tone [place]: Relaxed Heart Rate FHR Baseline Rate: 130 Monitor Mode: External US FHR Baseline Changes: No Baseline Change Variability: Moderate 6-25 bpm Accelerations: 15X15 Decelerations: None Category: Category I Pain Presence: None/Denies Datetime: 02/07/2017 08:11 Assessment Type: Ongoing Assessment Maternal Assessment Level of Consciousness: Fully Conscious DTR's/Clonus: DTRs 2+; No Clonus Headache: Denies Blurred Vision: No Respiratory Effort: Unlabored; Regular Rhythm; Equal Expansion Breath Sounds, Left: Clear and Equal Breath Sounds, Right: Clear and Equal Nausea/Vomiting: Denies RUQ Epigastric Pain: Denies Facial Edema: None Fall Risk Assessment History of Falling: (0) No Secondary Diagnosis: (0) No Ambulatory Aid: (0) Bedrest/Nurse Assist Gait: (0) Normal/Bedrest/Immobile Mental Status: (0) Oriented to Own Ability Datetime: 02/07/2017 07:00 Labor Evaluation Frequency: x1 Monitor Mode: External Duration (sec)2399: 60 Quality: Mild Resting Tone [place]: Relaxed Heart Rate FHR Baseline Rate: 135 Monitor Mode: External [place] Variability: Moderate 6-25 bpm Accelerations: 15X15 Decelerations: None Category: Category I Pain Presence: None/Denies Datetime: 02/07/2017 06:20 Stage of : Antepartum Datetime: 02/07/2017 06:00 Labor Evaluation Frequency: 0 Monitor Mode: External Resting Tone [place]: Relaxed Heart Rate FHR Baseline Rate: 135 Datetime: 02/07/2017 05:33 Comments: pt sleeping appeared to be comfortable will adjust us later on. Datetime: 02/07/2017 05:00 Labor Evaluation Frequency: 0 Monitor Mode: External Resting Tone [place]: Relaxed Heart Rate FHR Baseline Rate: 135 Datetime: 02/07/2017 04:19 Maternal Assessment Level of Consciousness: Fully Conscious DTR's/Clonus: DTRs 1+ Headache: Denies Blurred Vision: No Respiratory Effort: Unlabored; Regular Rhythm; Equal Expansion Breath Sounds, Left: Clear and Equal Breath Sounds, Right: Clear and Equal Datetime: 02/07/2017 04:00 Labor Evaluation Frequency: x2 Monitor Mode: External Duration (sec)2399: 60-70 Quality: Mild Resting Tone [place]: Relaxed Heart Rate FHR Baseline Rate: 135 Monitor Mode: External [place] Variability: Moderate 6-25 bpm Accelerations: 15X15 Decelerations: None Category: Category I Datetime: 02/07/2017 03:00 Labor Evaluation Frequency: 0 Monitor Mode: External Resting Tone [place]: Relaxed Heart Rate FHR Baseline Rate: 130 Monitor Mode: External [place] Variability: Moderate 6-25 bpm Accelerations: 15X15 Decelerations: None Category: Category I Datetime: 02/07/2017 02:00 Labor Evaluation Frequency: x1 Monitor Mode: External Duration (sec)2399: 110 Quality: Mild Resting Tone [place]: Relaxed Heart Rate FHR Baseline Rate: 130 Monitor Mode: External [place] Variability: Moderate 6-25 bpm Accelerations: 15X15 Decelerations: None Category: Category I Pain Presence: None/Denies Pain Type: N/A Datetime: 02/07/2017 01:00 Labor Evaluation Frequency: X3 Monitor Mode: External Duration (sec)2399: 40-60 Quality: Mild Resting Tone [place]: Relaxed Heart Rate FHR Baseline Rate: 130 Monitor Mode: External [place] Variability: Moderate 6-25 bpm Accelerations: 15X15 Decelerations: None Category: Category I Pain Presence: None/Denies Pain Type: N/A Datetime: 02/07/2017 00:00 Labor Evaluation Frequency: X1 Monitor Mode: External Duration (sec)2399: 70 Quality: Mild Resting Tone [place]: Relaxed Heart Rate FHR Baseline Rate: 135 Monitor Mode: External [place] Variability: Moderate 6-25 bpm Accelerations: 15X15 Decelerations: None Category: Category I Pain Presence: None/Denies Pain Type: N/A Datetime: 02/06/2017 23:00 Labor Evaluation Frequency: 0 Monitor Mode: External Duration (sec)2399: DENIES Resting Tone [place]: Relaxed Heart Rate FHR Baseline Rate: 130 Monitor Mode: External [place] Variability: Moderate 6-25 bpm Accelerations: 15X15 Decelerations: None Category: Category I Pain Presence: None/Denies Pain Type: N/A Datetime: 02/06/2017 22:00 Labor Evaluation Frequency: 0 Monitor Mode: External Duration (sec)2399: denies Resting Tone [place]: Relaxed Heart Rate FHR Baseline Rate: 135 Monitor Mode: External [place] Variability: Moderate 6-25 bpm Accelerations: 15X15 Decelerations: None Category: Category I Pain Presence: None/Denies Pain Type: N/A Datetime: 02/06/2017 21:00 Labor Evaluation Frequency: 0 Heart Rate FHR Baseline Rate: 135 Comments: LOSS OF CONTACT PT MOVING SIDE TO SIDE TALKING WITH VISITORS,WILL KEEP MONITORING. Pain Presence: None/Denies Pain Type: N/A Datetime: 02/06/2017 20:00 Labor Evaluation Frequency: X1 Monitor Mode: External Duration (sec)2399: 70 Quality: Mild Resting Tone [place]: Relaxed Heart Rate FHR Baseline Rate: 135 Monitor Mode: External [place] Variability: Moderate 6-25 bpm Accelerations: 15X15 Decelerations: None Category: Category I Pain Presence: None/Denies Pain Type: N/A Datetime: 02/06/2017 19:57 Bedside Blood Glucose: 185 (Annotations: DR DELSHAD NOTIFIED.) Datetime: 02/06/2017 19:42 Stage of : Antepartum Assessment Type: Ongoing Assessment Maternal Assessment Level of Consciousness: Fully Conscious DTR's/Clonus: DTRs 1+; No Clonus Headache: Denies Blurred Vision: No Respiratory Effort: Unlabored; Regular Rhythm; Equal Expansion Breath Sounds, Left: Clear and Equal Breath Sounds, Right: Clear and Equal Nausea/Vomiting: Denies RUQ Epigastric Pain: Denies Lower Extremities Edema: None Degree: None Upper Extremities Edema: None Degree: None Facial Edema: None Temperature Route: Oral Fall Risk Assessment History of Falling: (0) No Secondary Diagnosis: (0) No Ambulatory Aid: (0) Bedrest/Nurse Assist IV Therapy: (0) No Gait: (0) Normal/Bedrest/Immobile Mental Status: (0) Oriented to Own Ability Fall Score: 0 Fall Risk Score Definition: No Risk: No action required Pain Presence: None/Denies Pain Type: N/A Datetime: 02/06/2017 19:16 Stage of : Antepartum Datetime: 02/06/2017 19:00 Maternal Assessment Level of Consciousness: Fully Conscious DTR's/Clonus: DTRs 1+ Headache: Denies Blurred Vision: No Breath Sounds, Left: Clear and Equal; Diminished Breath Sounds, Right: Clear and Equal; Diminished Nausea/Vomiting: Denies RUQ Epigastric Pain: Denies Facial Edema: None Labor Evaluation Frequency: 1 IN AN HOUR Monitor Mode: External Duration (sec)2399: 60 Quality: Mild Pattern: Normal: <= 5 Contractions in 10 Minutes Resting Tone [place]: Relaxed Heart Rate FHR Baseline Rate: 130 Monitor Mode: External [place] FHR Baseline Changes: No Baseline Change Variability: Moderate 6-25 bpm Accelerations: 15X15 Decelerations: None Category: Category I Datetime: 02/06/2017 18:00 Stage of : Antepartum Maternal Assessment Level of Consciousness: Fully Conscious DTR's/Clonus: DTRs 1+ Headache: Denies Blurred Vision: No Breath Sounds, Left: Clear and Equal; Diminished Breath Sounds, Right: Clear and Equal; Diminished Nausea/Vomiting: Denies RUQ Epigastric Pain: Denies Facial Edema: None Labor Evaluation Frequency: NONE Monitor Mode: External Resting Tone [place]: Relaxed Heart Rate FHR Baseline Rate: 130 Monitor Mode: External US FHR Baseline Changes: No Baseline Change Variability: Moderate 6-25 bpm Accelerations: 15X15 Decelerations: None Category: Category I Datetime: 02/06/2017 17:00 Stage of : Antepartum Maternal Assessment Level of Consciousness: Fully Conscious DTR's/Clonus: DTRs 1+ Headache: Denies Blurred Vision: No Breath Sounds, Left: Clear and Equal; Diminished Breath Sounds, Right: Clear and Equal; Diminished Nausea/Vomiting: Denies RUQ Epigastric Pain: Denies Facial Edema: None Labor Evaluation Frequency: NONE Monitor Mode: External Resting Tone [place]: Relaxed Heart Rate FHR Baseline Rate: 130 Monitor Mode: External US FHR Baseline Changes: No Baseline Change Variability: Moderate 6-25 bpm Accelerations: 15X15 Decelerations: None Category: Category I Pain Assessment Pain Scale: 0 Pain Presence: None/Denies Pain Goal: 3 Datetime: 02/06/2017 16:00 Stage of : Antepartum Maternal Assessment Level of Consciousness: Fully Conscious DTR's/Clonus: DTRs 1+ Headache: Denies Blurred Vision: No Breath Sounds, Left: Clear and Equal; Diminished Breath Sounds, Right: Clear and Equal; Diminished Nausea/Vomiting: Denies RUQ Epigastric Pain: Denies Facial Edema: None Labor Evaluation Frequency: NONE Monitor Mode: External Resting Tone [place]: Relaxed Heart Rate FHR Baseline Rate: 130 Monitor Mode: External US FHR Baseline Changes: No Baseline Change Variability: Moderate 6-25 bpm Accelerations: 15X15 Decelerations: None Category: Category I Pain Assessment Pain Scale: 0 Pain Presence: None/Denies Pain Goal: 3 Datetime: 02/06/2017 15:30 Stage of : Antepartum Datetime: 02/06/2017 15:20 Bedside Blood Glucose: 178 Datetime: 02/06/2017 15:00 Stage of : Antepartum Maternal Assessment Level of Consciousness: Fully Conscious DTR's/Clonus: DTRs 1+ Headache: Denies Blurred Vision: No Breath Sounds, Left: Clear and Equal; Diminished Breath Sounds, Right: Clear and Equal; Diminished Nausea/Vomiting: Denies RUQ Epigastric Pain: Denies Facial Edema: None Labor Evaluation Frequency: NONE Monitor Mode: External Resting Tone [place]: Relaxed Heart Rate FHR Baseline Rate: 130 Monitor Mode: External US FHR Baseline Changes: No Baseline Change Variability: Moderate 6-25 bpm Accelerations: 15X15 Decelerations: None Category: Category I Pain Assessment Pain Scale: 0 Pain Presence: None/Denies Pain Goal: 3 Datetime: 02/06/2017 14:00 Stage of : Antepartum Maternal Assessment Level of Consciousness: Fully Conscious DTR's/Clonus: DTRs 1+ Headache: Denies Blurred Vision: No Nausea/Vomiting: Denies RUQ Epigastric Pain: Denies Facial Edema: None Labor Evaluation Frequency: NONE Monitor Mode: External Resting Tone [place]: Relaxed Heart Rate FHR Baseline Rate: 130 FHR Baseline Changes: No Baseline Change Comments: UNABLE TO GET TRACING PT IS SITTING UP AND EATING. Pain Assessment Pain Scale: 0 Pain Presence: None/Denies Pain Goal: 3 Datetime: 02/06/2017 13:00 Stage of : Antepartum Maternal Assessment Level of Consciousness: Fully Conscious DTR's/Clonus: DTRs 1+ Headache: Denies Blurred Vision: No Breath Sounds, Left: Clear and Equal; Diminished Breath Sounds, Right: Clear and Equal; Diminished Nausea/Vomiting: Denies RUQ Epigastric Pain: Denies Facial Edema: None Labor Evaluation Frequency: NONE Monitor Mode: External Resting Tone [place]: Relaxed Heart Rate FHR Baseline Rate: 130 FHR Baseline Changes: No Baseline Change Variability: Moderate 6-25 bpm Accelerations: 15X15 Decelerations: None Category: Category I Pain Assessment Pain Scale: 0 Pain Presence: None/Denies Pain Goal: 3 Datetime: 02/06/2017 12:50 Bedside Blood Glucose: 150 Datetime: 02/06/2017 12:00 Stage of : Antepartum Maternal Assessment Level of Consciousness: Fully Conscious DTR's/Clonus: DTRs 1+ Headache: Denies Blurred Vision: No Breath Sounds, Left: Clear and Equal Breath Sounds, Right: Clear and Equal Nausea/Vomiting: Denies RUQ Epigastric Pain: Denies Facial Edema: None Labor Evaluation Frequency: NONE Monitor Mode: External Resting Tone [place]: Relaxed Heart Rate FHR Baseline Rate: 130 Monitor Mode: External US FHR Baseline Changes: No Baseline Change Variability: Moderate 6-25 bpm Accelerations: 15X15 Decelerations: None Category: Category I Pain Assessment Pain Scale: 0 Pain Presence: None/Denies Pain Goal: 3 Datetime: 02/06/2017 11:00 Maternal Assessment Level of Consciousness: Fully Conscious DTR's/Clonus: DTRs 1+ Headache: Denies Blurred Vision: No Breath Sounds, Left: Clear and Equal; Diminished Breath Sounds, Right: Clear and Equal; Diminished Nausea/Vomiting: Denies RUQ Epigastric Pain: Denies Facial Edema: None Bedside Blood Glucose: 168 Labor Evaluation Frequency: NONE Monitor Mode: External Resting Tone [place]: Relaxed Heart Rate FHR Baseline Rate: 130 FHR Baseline Changes: No Baseline Change Variability: Moderate 6-25 bpm Accelerations: 15X15 Decelerations: None Category: Category I Pain Assessment Pain Scale: 0 Pain Presence: None/Denies Pain Goal: 3 Datetime: 02/06/2017 10:00 Stage of : Antepartum Maternal Assessment Level of Consciousness: Fully Conscious DTR's/Clonus: DTRs 1+ Headache: Denies Blurred Vision: No Breath Sounds, Left: Clear and Equal; Diminished Breath Sounds, Right: Clear and Equal; Diminished Nausea/Vomiting: Denies RUQ Epigastric Pain: Denies Facial Edema: None Labor Evaluation Frequency: 1 IN AN HOUR Monitor Mode: External Duration (sec)2399: 60 Quality: Mild Pattern: Normal: <= 5 Contractions in 10 Minutes Resting Tone [place]: Relaxed Heart Rate FHR Baseline Rate: 130 FHR Baseline Changes: No Baseline Change Variability: Moderate 6-25 bpm Accelerations: 10X10 Decelerations: None Category: Category I Pain Assessment Pain Scale: 0 Pain Presence: None/Denies Pain Goal: 3 Datetime: 02/06/2017 09:00 Stage of : Antepartum Maternal Assessment Level of Consciousness: Fully Conscious DTR's/Clonus: DTRs 1+ Headache: Denies Blurred Vision: No Breath Sounds, Left: Clear and Equal; Diminished Breath Sounds, Right: Clear and Equal; Diminished Nausea/Vomiting: Denies RUQ Epigastric Pain: Denies Facial Edema: None Labor Evaluation Frequency: 3 IN AN HOUR Monitor Mode: External Duration (sec)2399: 40-60 Quality: Mild Pattern: Normal: <= 5 Contractions in 10 Minutes Resting Tone [place]: Relaxed Heart Rate FHR Baseline Rate: 130 FHR Baseline Changes: No Baseline Change Variability: Moderate 6-25 bpm Accelerations: 15X15 Decelerations: None Category: Category I Pain Assessment Pain Scale: 0 Pain Presence: None/Denies Pain Goal: 3 Datetime: 02/06/2017 08:30 Bedside Blood Glucose: 204 Datetime: 02/06/2017 08:19 Assessment Type: Ongoing Assessment Maternal Assessment Level of Consciousness: Fully Conscious DTR's/Clonus: DTRs 2+; No Clonus Headache: Denies Blurred Vision: No Respiratory Effort: Unlabored; Regular Rhythm; Equal Expansion Breath Sounds, Left: Clear and Equal Breath Sounds, Right: Clear and Equal Nausea/Vomiting: Denies RUQ Epigastric Pain: Denies Degree: None Upper Extremities Edema: None Degree: None Facial Edema: None Fall Risk Assessment History of Falling: (0) No Secondary Diagnosis: (0) No Ambulatory Aid: (0) Bedrest/Nurse Assist IV Therapy: (0) No Gait: (0) Normal/Bedrest/Immobile Mental Status: (0) Oriented to Own Ability Fall Score: 0 Fall Risk Score Definition: No Risk: No action required Datetime: 02/06/2017 08:00 Stage of : Antepartum Maternal Assessment Level of Consciousness: Fully Conscious DTR's/Clonus: DTRs 1+ Headache: Denies Blurred Vision: No Breath Sounds, Left: Clear and Equal; Diminished Breath Sounds, Right: Clear and Equal; Diminished Nausea/Vomiting: Denies RUQ Epigastric Pain: Denies Facial Edema: None Labor Evaluation Frequency: NONE Monitor Mode: External Resting Tone [place]: Relaxed Heart Rate FHR Baseline Rate: 135 FHR Baseline Changes: No Baseline Change Variability: Moderate 6-25 bpm Accelerations: 15X15 Decelerations: None Category: Category I Pain Assessment Pain Scale: 0 Pain Presence: None/Denies Pain Goal: 3 Datetime: 02/06/2017 07:18 Stage of : Antepartum Datetime: 02/06/2017 06:30 Labor Evaluation Frequency: x1 Monitor Mode: External Duration (sec)2399: 70 Quality: Mild Resting Tone [place]: Relaxed Heart Rate FHR Baseline Rate: 135 Monitor Mode: External US Variability: Moderate 6-25 bpm Accelerations: 15X15 Decelerations: None Category: Category I Pain Presence: None/Denies Pain Type: N/A Datetime: 02/06/2017 05:30 Labor Evaluation Frequency: x2 Monitor Mode: External Duration (sec)2399: 40-50 Quality: Mild Resting Tone [place]: Relaxed Heart Rate FHR Baseline Rate: 140 Monitor Mode: External US Variability: Moderate 6-25 bpm Accelerations: 15X15 Decelerations: None Category: Category I Pain Presence: None/Denies Pain Type: N/A Datetime: 02/06/2017 04:30 Labor Evaluation Frequency: 0 Monitor Mode: External Duration (sec)2399: denies Resting Tone [place]: Relaxed Heart Rate FHR Baseline Rate: 135 Monitor Mode: External US Variability: Moderate 6-25 bpm Accelerations: 15X15 Decelerations: None Category: Category I Pain Presence: None/Denies Pain Type: N/A Datetime: 02/06/2017 03:30 Labor Evaluation Frequency: x2 Monitor Mode: External Duration (sec)2399: 40-60 Quality: Mild Resting Tone [place]: Relaxed Heart Rate FHR Baseline Rate: 135 Monitor Mode: External US Variability: Moderate 6-25 bpm Accelerations: 15X15 Decelerations: None Category: Category I Pain Presence: None/Denies Pain Type: N/A Datetime: 02/06/2017 02:30 Labor Evaluation Frequency: 0 Monitor Mode: External Duration (sec)2399: denies Resting Tone [place]: Relaxed Heart Rate FHR Baseline Rate: 130 Monitor Mode: External US Variability: Moderate 6-25 bpm Accelerations: 15X15 Decelerations: None Category: Category I Pain Presence: None/Denies Pain Type: N/A Datetime: 02/06/2017 01:30 Labor Evaluation Frequency: x1 Monitor Mode: External Duration (sec)2399: 50 Quality: Mild Resting Tone [place]: Relaxed Heart Rate FHR Baseline Rate: 135 Monitor Mode: External US Variability: Moderate 6-25 bpm Accelerations: 15X15 Decelerations: None Category: Category I Pain Presence: None/Denies Pain Type: N/A Datetime: 02/06/2017 00:30 Maternal Assessment Level of Consciousness: Fully Conscious DTR's/Clonus: DTRs 2+ Headache: Denies Blurred Vision: No Respiratory Effort: Unlabored Breath Sounds, Left: Clear and Equal Breath Sounds, Right: Clear and Equal Nausea/Vomiting: Denies RUQ Epigastric Pain: Denies Facial Edema: None Labor Evaluation Frequency: 0 Monitor Mode: External Duration (sec)2399: denies Resting Tone [place]: Relaxed Heart Rate FHR Baseline Rate: 135 Variability: Moderate 6-25 bpm Accelerations: 15X15 Decelerations: Variable Category: Category II Pain Presence: None/Denies Pain Type: N/A Datetime: 02/05/2017 23:30 Labor Evaluation Frequency: x1 Monitor Mode: External Duration (sec)2399: 70 Quality: Mild Resting Tone [place]: Relaxed Heart Rate FHR Baseline Rate: 135 Variability: Moderate 6-25 bpm Accelerations: 15X15 Pain Presence: None/Denies Pain Type: N/A Datetime: 02/05/2017 22:30 Labor Evaluation Frequency: x1 Monitor Mode: External Duration (sec)2399: 50 Quality: Mild Resting Tone [place]: Relaxed Heart Rate FHR Baseline Rate: 135 Comments: loss of contact due to maternal movements. Pain Presence: None/Denies Pain Type: N/A Datetime: 02/05/2017 21:30 Labor Evaluation Frequency: x1 Monitor Mode: External Duration (sec)2399: 40 Quality: Mild Resting Tone [place]: Relaxed Heart Rate FHR Baseline Rate: 135 Monitor Mode: External US Variability: Moderate 6-25 bpm Accelerations: 15X15 Decelerations: None Category: Category I Comments: loss of contact due to ga and maternal movements. Pain Presence: None/Denies Pain Type: N/A Datetime: 02/05/2017 20:30 Labor Evaluation Frequency: 0 Monitor Mode: External Duration (sec)2399: denies Resting Tone [place]: Relaxed Heart Rate FHR Baseline Rate: 135 Monitor Mode: External US Variability: Moderate 6-25 bpm Accelerations: 15X15 Decelerations: None Category: Category I Pain Presence: None/Denies Pain Type: N/A Datetime: 02/05/2017 19:36 Stage of : Antepartum Assessment Type: Ongoing Assessment Maternal Assessment Level of Consciousness: Fully Conscious DTR's/Clonus: DTRs 2+; No Clonus Headache: Denies Blurred Vision: No Respiratory Effort: Unlabored; Regular Rhythm; Equal Expansion Breath Sounds, Left: Clear and Equal Breath Sounds, Right: Clear and Equal Nausea/Vomiting: Denies RUQ Epigastric Pain: Denies Lower Extremities Edema: None Degree: None Upper Extremities Edema: None Degree: None Facial Edema: None Temperature Route: Oral Fall Risk Assessment History of Falling: (0) No Secondary Diagnosis: (0) No Ambulatory Aid: (0) Bedrest/Nurse Assist IV Therapy: (0) No Gait: (0) Normal/Bedrest/Immobile Mental Status: (0) Oriented to Own Ability Fall Score: 0 Fall Risk Score Definition: No Risk: No action required Monitor Mode: External Pain Presence: None/Denies Datetime: 02/05/2017 19:30 Labor Evaluation Frequency: X1 Monitor Mode: External Resting Tone [place]: Relaxed Heart Rate FHR Baseline Rate: 140 Monitor Mode: External US FHR Baseline Changes: No Baseline Change Variability: Moderate 6-25 bpm Accelerations: 15X15 Decelerations: None Category: Category I Datetime: 02/05/2017 18:30 Labor Evaluation Frequency: 0 Monitor Mode: External Resting Tone [place]: Relaxed Heart Rate FHR Baseline Rate: 140 Monitor Mode: External US FHR Baseline Changes: No Baseline Change Variability: Moderate 6-25 bpm Accelerations: 10X10 Decelerations: None Category: Category I Datetime: 02/05/2017 17:23 Assessment Type: Admission Assessment Vaginal Bleeding: None Maternal Assessment Level of Consciousness: Fully Conscious DTR's/Clonus: DTRs 2+; No Clonus Headache: Denies Blurred Vision: No Respiratory Effort: Unlabored; Regular Rhythm; Equal Expansion Breath Sounds, Left: Clear and Equal Breath Sounds, Right: Clear and Equal Nausea/Vomiting: Denies RUQ Epigastric Pain: Denies Lower Extremities Edema: None Degree: None Upper Extremities Edema: None Degree: None Facial Edema: None Fall Risk Assessment History of Falling: (0) No Secondary Diagnosis: (0) No Ambulatory Aid: (0) Bedrest/Nurse Assist IV Therapy: (0) No Gait: (0) Normal/Bedrest/Immobile Mental Status: (0) Oriented to Own Ability Fall Score: 0 Fall Risk Score Definition: No Risk: No action required Labor Evaluation Frequency: OCCASIONAL Duration (sec)2399: 80 Quality: Mild Heart Rate FHR Baseline Rate: 130 Variability: Moderate 6-25 bpm Accelerations: 10X10 Decelerations: None Category: Category I Pain Assessment Pain Scale: 0 Pain Presence: None/Denies Vaginal Exam Membrane Status: Intact Datetime: 02/05/2017 17:03 Stage of : Antepartum Datetime: 02/05/2017 13:00 EGA: 29.4 Time Provider Notified: 02/05/2017 13:20 Datetime: 12/15/2016 22:17 EGA: 22.1 Datetime: 12/15/2016 22:02 Fall Score: 0 Fall Risk Score Definition: No Risk: No action required
--- NOTE | 2017-03-06 17:28 | PN ---
Triage Information Date/Time 03/06/2017 41 years old with IUP at 33 weeks and 5 days with care with Dr. evi thompson presented to triage due to decreased movement. She denies any contractions. She reports some occasional leaking of mucousy watery discharge for the past 2 months. Sterile speculum examination: Doug cheesy green tinged white vaginal discharge consistent with yeast infection noted. Pulling: Negative Nitrazine: Negative ALETHEA: 15.2 BPP: 04/23 NST: Category 1 Weeks of Gestation 33 weeks and 5 days : 5 Para: 2 Diabetes: none Hypertention: none Objective Heart Rate: 130's Contractions: >10 Minutes Apart Exam Sterile speculum examination: Green tinged whitish vaginal discharge Doug cheesy consistent with yeast infection noted Nitrazine negative next Poorly negative Results/Medications Imaging Results PROCEDURE: OB ultrasound for biophysical profile CLINICAL INDICATION: Biophysical profile. . Decreased movement TECHNIQUE: Multiple sonographic images of the pelvis were obtained. Transabdominal views are obtained. COMPARISON: 03/04/2017 FINDINGS: Single intrauterine gestation. Presentation: Cephalic. Placenta: Posterior No evidence of placental abruption. No evidence of placenta previa. breathing movement = 2/2 tone = 2/2 motion = 2/2 ALETHEA = 2/2 ALETHEA = 15.2 cm heart rate: 118 beats per minute IMPRESSION: Single intrauterine gestation. Biophysical profile 04/23 RPTAT: AADD Assessment/Plan IUP at 33 weeks and 5 days Decreased movement NST/BPP reassuring Vaginal discharge consistent with Joanne vulvovaginitis Clotrimazole vaginal cream was provided to use it nightly for 7 days Strict labor precaution and kick count and follow-up with her primary OB in 1-2 days after discharge from the hospital discussed with patient next Adequate ALETHEA. No evidence of PPROM. MELVIN MILTON MD Mar 06, 2017 17:28
== END 2017-03-06 14:40 | disposition home or self-care (01) ==
LOC: OBT 12:56 → L-D 12:56 → OBT 14:40
PROVIDERS: ATTEND Obstetrics & Gynecology
DX: O36.8130 Decreased fetal movements, third trimester, not applicable or unspecified (principal); O09.523 Supervision of elderly multigravida, third trimester; O26.893 Other specified pregnancy related conditions, third trimester; N89.8 Other specified noninflammatory disorders of vagina; Z3A.33 33 weeks gestation of pregnancy
CPT/HCPCS: 76818; Z7500; G0463

== ENCOUNTER 2017-03-14 11:20 | Inpatient (IN) | payer OTHER ==
[~2017-03-14] VITALS: Ht 170.2 cm; Wt 90.7 kg
[2017-03-14 14:33] VITALS: BP 108/69; PULSE 86; RESP 20
[2017-03-14 14:39] VITALS: Ht 170.2 cm; Wt 90.7 kg
[2017-03-14 15:33] LABS: BASOPHILS % 0.2 % (0.0-2.0); EOSINOPHILS # 0.2 10^3/ul (0.0-0.5); EOSINOPHILS % 2.2 % (0.0-7.0); HEMATOCRIT 34.6 % (37.0-47.0); HEMOGLOBIN 11.7 g/dl (12.0-16.0); LYMPHOCYTES # 2.3 10^3/ul (0.8-2.9); LYMPHOCYTES % 22.7 % (15.0-51.0); MEAN CORPUSCULAR HEMOGLOBIN 27.9 pg (29.0-33.0); MEAN CORPUSCULAR HGB CONC 33.8 g/dl (32.0-37.0); MEAN CORPUSCULAR VOLUME 82.6 fl (82.0-101.0); MEAN PLATELET VOLUME 10.4 fl (7.4-10.4); MONOCYTE # 0.6 10^3/ul (0.3-0.9); MONOCYTES % 5.9 % (0.0-11.0); NEUTROPHIL # 6.7 10^3/ul (1.6-7.5); PLATELET COUNT 198 10^3/UL (140-415); RED BLOOD COUNT 4.19 10^6/ul (4.20-5.40); RED CELL DISTRIBUTION WIDTH 12.7 % (11.5-14.5); WHITE BLOOD COUNT 9.9 10^3/ul (4.8-10.8)
[2017-03-14 15:34] LABS: ADD UMIC YES; UR ASCORBIC ACID NEGATIVE (NEGATIVE); UR BACTERIA FEW /HPF (NONE SEEN); UR BILIRUBIN (Dip) NEGATIVE (NEGATIVE); UR BLOOD (Dip) NEGATIVE (NEGATIVE); UR CLARITY SLIGHTLY CLOUDY (CLEAR); UR COLOR YELLOW (YELLOW); UR GLUCOSE (Dip) 1+ mg/dL (NEGATIVE); UR KETONES (Dip) NEGATIVE (NEGATIVE); UR LEUKOCYTE ESTERASE (Dip) TRACE Leu/ul (NEGATIVE); UR MUCUS FEW /HPF (NONE SEEN); UR NITRITE (Dip) NEGATIVE (NEGATIVE); UR RBC 1 /HPF (0-5); UR SQUAMOUS EPITHELIAL CELL FEW /HPF (FEW); UR TOTAL PROTEIN (Dip) 1+ mg/dl (NEGATIVE); UR UROBILINOGEN (Dip) NEGATIVE (NEGATIVE)
[2017-03-14] MEDS ORDERED: GLUCAGON 1 MG INJ IM PRN (16:00)
[2017-03-14] MEDS ORDERED: GLUCOSE GEL 15 GRAM TUBE BUCCAL PRN (16:00)
[2017-03-14] MEDS ORDERED: DEXTROSE 50% 50 ML SYRINGE IV PRN ×2 (16:00)
[2017-03-14] MEDS ORDERED: GLUCOSE GEL 15 GRAM TUBE PO PRN ×2 (16:00)
[2017-03-14 16:09] LABS: ALBUMIN 3.7 g/dl (3.3-4.9); ALBUMIN/GLOBULIN RATIO 1.37; CALCIUM 8.9 mg/dl (8.4-10.2); CREATININE 0.48 mg/dl (0.44-1.00); TOTAL PROTEIN 6.4 g/dl (6.1-8.1)
[2017-03-14] MEDS ORDERED: INSULIN ASPART [NOVOLOG] 3 ML PEN SC SCH ×2 (18:31→21:00)
[2017-03-14] MEDS ORDERED: NOVO7030 SC ×2 (19:30→19:31)
[2017-03-14] MEDS ORDERED: INSU100C SQ ×3 (19:33→19:35)
[2017-03-14] MEDS ORDERED: ACCU-CHEK XX SCH ×2 (20:05)
[2017-03-14] MEDS: INSULIN DETEMIR [LEVEMIR] 3ML CART SC SCH (20:42)
[2017-03-14] MEDS: ACCU-CHEK XX SCH ×2 (20:43)
[2017-03-14] MEDS ORDERED: INSULIN ISOPHANE (NPH) 10 ML INJ SC SCH (21:00)
--- NOTE | 2017-03-14 22:54 | RADRPT ---
PROCEDURE: Limited OB ultrasound CLINICAL INDICATION: For position TECHNIQUE: Limited sonographic evaluation of the gravid uterus was performed to assess the p osition. COMPARISON: 03/06/2017. FINDINGS: Single intrauterine is identified with a cephalic presentation. IMPRESSION: Single intrauterine with cephalic presentation. RPTAT: HMVK .Wing López MD, Date Time Electronically viewed and signed by .Wing López MD, MD on 03/14/2017 22:53 .K/
[2017-03-15] MEDS ORDERED: AMPICILLIN 2 GM/NS (PMX) 100 ML IV ONE (02:00)
[2017-03-15] MEDS ORDERED: METHYLERGONOVINE 0.2 MG INJ IM PRN (02:00)
[2017-03-15] MEDS ORDERED: OXYTOCIN 30 UNITS/LR 500 ML IV SCH ×2 (02:00)
[2017-03-15] MEDS ORDERED: CARBOPROST 250 MCG INJ IM PRN (02:00)
[2017-03-15] MEDS ORDERED: IBUPROFEN 600 MG TAB PO PRN (02:00)
[2017-03-15] MEDS ORDERED: LACTATED RINGER'S 1,000 ML IV PRN (02:00)
[2017-03-15] MEDS ORDERED: LIDOCAINE 1% (MPF) 30 ML INJ INJ PRN (02:00)
[2017-03-15] MEDS ORDERED: MISOPROSTOL 200 MCG TAB PR PRN (02:00)
[2017-03-15] MEDS ORDERED: BUTORPHANOL 2 MG INJ IV PRN (02:00)
[2017-03-15] MEDS ORDERED: OXYTOCIN 30 UNITS/LR 500 ML IV PRN (02:00)
[2017-03-15] MEDS: LACTATED RINGER'S 1,000 ML IV SCH ×4 (02:09→20:16)
[2017-03-15 02:42] LABS: BASOPHILS % 0.2 % (0.0-2.0); EOSINOPHILS # 0.2 10^3/ul (0.0-0.5); EOSINOPHILS % 1.9 % (0.0-7.0); HEMATOCRIT 36.5 % (37.0-47.0); HEMOGLOBIN 12.1 g/dl (12.0-16.0); LYMPHOCYTES # 2.4 10^3/ul (0.8-2.9); LYMPHOCYTES % 23.1 % (15.0-51.0); MEAN CORPUSCULAR HEMOGLOBIN 27.7 pg (29.0-33.0); MEAN CORPUSCULAR HGB CONC 33.2 g/dl (32.0-37.0); MEAN CORPUSCULAR VOLUME 83.5 fl (82.0-101.0); MEAN PLATELET VOLUME 10.6 fl (7.4-10.4); MONOCYTE # 0.6 10^3/ul (0.3-0.9); MONOCYTES % 5.7 % (0.0-11.0); NEUTROPHILS % 68.2 % (39.0-77.0); PLATELET COUNT 210 10^3/UL (140-415); RED BLOOD COUNT 4.37 10^6/ul (4.20-5.40); RED CELL DISTRIBUTION WIDTH 12.7 % (11.5-14.5); WHITE BLOOD COUNT 10.3 10^3/ul (4.8-10.8)
[2017-03-15 02:43] LABS: ADD SCAN DIFF NO
[2017-03-15 03:01] LABS: INR 0.95; PARTIAL THROMBOPLASTIN TIME 24.2 Sec (25.0-35.0); PROTIME 12.7 Sec (12.2-14.2)
[2017-03-15] MEDS: AMPICILLIN 1 GM/NS (PMX) 50 ML IV SCH ×5 (06:06→22:00)
[2017-03-15] MEDS: ACCU-CHEK XX SCH ×8 (06:11→21:00)
[2017-03-15] MEDS ORDERED: INSULIN ISOPHANE (NPH) 10 ML INJ SC SCH (07:30)
[2017-03-15] MEDS: INSULIN ASPART [NOVOLOG] 3 ML PEN SC SCH ×3 (08:02→17:30)
[2017-03-15] MEDS: INSULIN DETEMIR [LEVEMIR] 3ML CART SC SCH ×2 (08:05→21:05)
[2017-03-15] MEDS: PRENATAL VITAMIN PO SCH (08:18)
[2017-03-15] MEDS: FOLIC ACID 1 MG TAB PO SCH (09:52)
[2017-03-15] MEDS ORDERED: INSULIN ASPART [NOVOLOG] 3 ML PEN SC SCH (12:00)
--- NOTE | 2017-03-15 19:45 | HP ---
Date/Time of Note Date/Time of Note DATE: 03/15/17 TIME: 19:41 OB - History Hx of Present Chief Complaint: uncontrolled DM Estimated Due Date: Apr 24, 2017 : 5 Para: 2 Spontaneous : 2 Therapeutic : 0 Care: Good Care Ultrasounds: Normal mid trimester US Obstetrical Complications: None Medical Complications: Other (IDDM) Past Family/Social History * Past Medical, Surgical, Family and Obstetric Histories reviewed from chart. GBS Status: Unknown OB Admission Exam Vital Signs Vital Signs Vital Signs Date Time Temp Pulse Resp B/P Pulse Ox O2 Delivery O2 Flow Rate FiO2 03/14/17 14:33 98.3 86 20 108/69 97 Physical Exam HEENT: WNL Heart: Rhythm Normal Lungs: Clear Abdomen: WNL Extremities: Normal Cervical Dilatation: 2cm Effacement: 50% Station: -1 Membranes: Intact Heart Rate: 130's Accelerations: Accelerations Present Decelerations: No Decelerations Varibility: Moderate Last 72 hourBlood Glucose Bedside Glucose - 72 Hours Test 03/14/17 14:48 03/14/17 17:54 03/14/17 20:36 03/15/17 06:10 Bedside Glucose 113mg/dL (70-220) 190mg/dL (70-220) 158mg/dL (70-220) 151mg/dL (70-220) Test 03/15/17 07:57 03/15/17 10:11 03/15/17 12:11 03/15/17 14:25 Bedside Glucose 166mg/dL (70-220) 133mg/dL (70-220) 114mg/dL (70-220) 116mg/dL (70-220) Test 03/15/17 17:26 Bedside Glucose 74mg/dL (70-220) Last 72 hours Lab Results CBC & BMP 03/14/17 15:25 03/15/17 02:27 Liver Function Test 03/14/17 15:25 Alanine Aminotransferase (ALT/SGPT) 29 Albumin 3.7 Alkaline Phosphatase 90 Aspartate Amino Transf (AST/SGOT) 13 L Direct Bilirubin 0.00 Total Protein 6.4 Hemoglobin A1C Test 03/14/17 15:25 Hemoglobin A1c 9.3 H OB Assessment/Plan Reason for admission: labor (uncontrolled DM, Patient non-compliant with insulin use), other Plan: Expectant Management, Other (control DM) SUDHA LOBATO MD Mar 15, 2017 19:45
[2017-03-16] MEDS: LACTATED RINGER'S 1,000 ML IV SCH ×3 (02:42→17:48)
[2017-03-16] MEDS: ACCU-CHEK XX SCH ×2 (07:47→09:57)
[2017-03-16] MEDS: INSULIN DETEMIR [LEVEMIR] 3ML CART SC SCH (08:21)
[2017-03-16] MEDS: INSULIN ASPART [NOVOLOG] 3 ML PEN SC SCH ×3 (08:24→17:17)
[2017-03-16] MEDS: PRENATAL VITAMIN PO SCH (08:33)
[2017-03-16] MEDS: FOLIC ACID 1 MG TAB PO SCH (08:33)
--- NOTE | 2017-03-16 12:12 | PN ---
Date/Time of Note Date/Time of Note DATE: 03/16/17 TIME: 11:57 OB Subjective Subjective Subjective 34-1/2 weeks GDM insulin dependent, currently on NovoLog 40 units Levemir 32 units, presently she is in labor and delivery room since she has some contraction while she was in [address] [place] [address] she transferred to L&D with the pelvic examination at that time cervical dilatation at 3 cm 80% effaced, since patient has been in the L&D has occasional few contractions in 1 hour and no cervical changes patient will be transferred to antepartum under close observation. Her sugar will be tested fasting and 2 hours postprandial her 2 hours postprandial today is 139 OB Assessment/Plan Reason for admission: other (34-1/2 weeks complicated with GDM insulin-dependent under close watch for possible labor) Plan: Expectant Management NO BONILLA MD Mar 16, 2017 12:07
[2017-03-16] MEDS ORDERED: INSULIN DETEMIR [LEVEMIR] 3ML CART SC SCH (21:00)
[2017-03-17] MEDS: LACTATED RINGER'S 1,000 ML IV SCH ×3 (01:21→17:39)
[2017-03-17] MEDS: INSULIN ASPART [NOVOLOG] 3 ML PEN SC SCH ×3 (07:50→17:37)
[2017-03-17] MEDS: INSULIN DETEMIR [LEVEMIR] 3ML CART SC SCH (07:52)
[2017-03-17] MEDS: PRENATAL VITAMIN PO SCH (09:55)
[2017-03-17] MEDS: FOLIC ACID 1 MG TAB PO SCH (09:55)
[2017-03-17] MEDS: ACCU-CHEK XX SCH ×10 (13:30→23:01)
--- NOTE | 2017-03-17 20:46 | QN ---
Documentation Comment patient was admitted due to premature UCs and uncontrolled DM. she was observed in L&D. she did not make any cervical changes. she has UCs on NST, but she is not aware of them. she denies vaginal bleeding or LOF per vagina. she reports good FM. she reports that her insulin was changed recently and she was not clear about how to use the insulin. Today RN spoke to Dr. Pacheco and insulin was adjusted. AF VSS NAD Abdomen: soft, gravid not tender A/ 34 weeks IUP with poorly controlled DM p/ Insulin adjustment was done by primary Ob today. needs to be observed. MITESH BAIN MD Mar 17, 2017 20:46
[2017-03-17] MEDS ORDERED: INSULIN DETEMIR [LEVEMIR] 3ML CART SC SCH (21:00)
[2017-03-18] MEDS: LACTATED RINGER'S 1,000 ML IV SCH ×3 (00:47→19:52)
[2017-03-18] MEDS ORDERED: ACETAMINOPHEN 325 MG TAB PO PRN (08:30)
[2017-03-18] MEDS: ACCU-CHEK XX SCH ×8 (09:00→21:32)
[2017-03-18] MEDS: INSULIN DETEMIR [LEVEMIR] 3ML CART SC SCH ×2 (09:30→21:34)
[2017-03-18] MEDS: INSULIN ASPART [NOVOLOG] 3 ML PEN SC SCH ×3 (09:31→17:33)
[2017-03-18] MEDS: PRENATAL VITAMIN PO SCH (09:33)
[2017-03-18] MEDS: FOLIC ACID 1 MG TAB PO SCH (09:33)
--- NOTE | 2017-03-19 01:18 | NSTRPT ---
NST Information Datetime Report Generated by CPN: 03/19/2017 01:18 Datetime: 03/14/2017 09:10 NST Information EGA: 34.1 Test Number: 5 Time on Monitor: 03/14/2017 09:31 Time off Monitor: 03/14/2017 09:58 NST Duration (Min): 27 Reason for NST: Diabetes Mellitus Reason for NST Other: TYPE II on insulin Test and Monitor Explained: Monitor Explained; Test Explained; Verbalized Understanding Pulse: 83 Resp: 17 SBP: 116 DBP: 71 Test Evaluation NST Interventions: Reposition Patient Patient States Movement: Present Contraction Frequency: x1, mild FHR Baseline : 130 Variability: Moderate 6-25bpm Accelerations: 15X15 Decelerations: None FHR Category: Category I NST Results: Reactive Comments: pt to U/S, ALETHEA 15.6cm, cephalic FBS 168-Pt states Dr. Pacheco is aware of her elevated blood sugar values. New orders recived. Pt send to Hospital to be admitted in 2NE-AP unit. Explained to pt plan of care. NST f/u appointment g iven. Kick Count instructions reviewed. Pt states understanding. Electronically Signed By E-Signature: with User ID: [id number] Datetime: 03/07/2017 09:45 NST Information EGA: 33.1 NST Duration (Min): 36 Datetime: 03/04/2017 11:30 NST Information EGA: 32.5 NST Duration (Min): 36 Datetime: 02/28/2017 10:52 NST Information EGA: 32.1 NST Duration (Min): 24 Datetime: 02/25/2017 11:05 NST Information EGA: 31.5 NST Duration (Min): 34
[2017-03-19] MEDS: LACTATED RINGER'S 1,000 ML IV SCH ×3 (03:45→19:10)
[2017-03-19] MEDS: ACCU-CHEK XX SCH ×8 (08:08→21:06)
[2017-03-19] MEDS: FOLIC ACID 1 MG TAB PO SCH (08:32)
[2017-03-19] MEDS: PRENATAL VITAMIN PO SCH (08:32)
[2017-03-19] MEDS: INSULIN ASPART [NOVOLOG] 3 ML PEN SC SCH ×3 (08:33→17:15)
[2017-03-19] MEDS: INSULIN DETEMIR [LEVEMIR] 3ML CART SC SCH ×2 (08:45→21:09)
--- NOTE | 2017-03-19 11:29 | QN ---
Documentation Comment 41 years 2 34 weeks 6 7 day complicated with type II GDM she is on 40 units of NovoLog and 30 units of Levemir her past blood sugar was 122 and 2 hours postprandial 122, resting in bed has no complaint heart category 1 compatible with gestational age with continued present treatment NO BONILLA MD Mar 19, 2017 11:29
--- NOTE | 2017-03-19 12:54 | CONS ---
Date/Time of Note Date/Time of Note DATE: 03/19/17 TIME: 12:48 Consultation Date/Type/Reason Admit Date/Time Mar 14, 2017 at 13:46 Date of Consultation: Mar 19, 2017 Reason for Consultation labor and uncontrolled diabetes requiring insulin Hx of Present Illness Chastity Mcneal is a 41-year-old, type II diabetic for 20 years on insulin and has unstable blood sugars . She is on insulin now 5, 2 and para 2 with gestational age of 34 and 5/7 weeks. EDC is 04/24/17. She is O, Rh+ , RPR nonreactive, hepatitis B surface antigen negative, HIV negative and GBS unknown. She is afebrile and given betamethasone first course on 02/05 and . Consult is requested by her alteration inspector Dr. Pacheco. She has 2 living children at home and doing well. I have explained to the mother with the help of an candle maker about 34-35 week premature babies, physiologic immaturity with of diabetic mom's, high risk for hypoglycemia, need for IV fluid therapy and possible central line placement for the same, high risk for respiratory distress, oxygen therapy and possible ventilatory assistance, apnea of prematurity, jaundice, phototherapy, feeding intolerance and poor nippling with risk for necrotizing enterocolitis and gastroesophageal reflux, general treatment plan, general procedures done in NICU and answered mother's questions and addressed her concerns. I have also explained to her high risk for long-term hearing and neurodevelopmental problems in view of prematurity and physiologic immaturity with infant of diabetic mom. Mom seems to understand the risks with prematurity and had appropriate questions. I thank you very much for allowing me to take part in the care of this patient, will follow her and attend the delivery as needed and follow the baby. Past Surgical History Past Surgical Hx: no surgical history Social History Smoking Status: Never smoker Exam/Review of Systems Vital Signs Vitals Intake and Output 03/18/17 03/18/17 03/19/17 15:00 23:00 07:00 Intake Total 750 ml 975 ml 1000 ml Output Total 1500 ml 1800 ml Balance 750 ml -525 ml -800 ml Results Result Diagram: 03/15/17 0227 Results 24 hrs Laboratory Tests Test 03/18/17 13:39 03/18/17 15:41 03/18/17 17:34 03/18/17 20:05 Bedside Glucose 74 123 93 77 Test 03/18/17 21:32 03/19/17 08:23 03/19/17 10:44 Bedside Glucose 144 122 122 Medications Medications Current Medications Diagnostic Test (Pha) (Accu-Chek) 1 ea FBSPP XX Last administered on 03/19/17 10:11; Admin Dose 1 EA; Start 03/14/17 at 20:05 Prenat Multivit/ [employer]/Iron/Folic Ac ( S) 1 tab DAILY PO Last administered on 03/19/17 08:32; Admin Dose 1 TAB; Start 03/15/17 at 09:00 Folic Acid (Folic Acid) 1 mg DAILY PO Last administered on 03/19/17 08:32; Admin Dose 1 MG; Start 03/15/17 at 09:00 Miscellaneous Information 1 ea NOTE XX ; Start 03/14/17 at 16:00 Glucose (Glutose) 15 gm Q15M PRN PO DECREASED GLUCOSE; Start 03/14/17 at 16:00 Glucose (Glutose) 22.5 gm Q15M PRN PO DECREASED GLUCOSE; Start 03/14/17 at 16: 00 Dextrose (D50w Syringe) 25 ml Q15M PRN IV DECREASED GLUCOSE; Start 03/14/17 at 16:00 Dextrose (D50w Syringe) 50 ml Q15M PRN IV DECREASED GLUCOSE; Start 03/14/17 at 16:00 Glucagon (Glucagen) 1 mg Q15M PRN IM DECREASED GLUCOSE; Start 03/14/17 at 16:00 Glucose 15 gm 15 gm Q15M PRN BUCCAL DECREASED GLUCOSE; Start 03/14/17 at 16:00 Lactated Ringer's (Lr) 1,000 ml @ 125 mls/hr Q8H IV Last administered on 10:47; Admin Dose 125 MLS/HR; Start 03/15/17 at 01:33 Acetaminophen (Tylenol Tab) 650 mg Q6H PRN PO PAIN AND OR ELEVATED TEMP Last administered on 03/18/17 09:34; Admin Dose 650 MG; Start 03/18/17 at 08:30 Insulin Detemir (Levemir) 36 unit QHS SC Last administered on 03/18/17 21:34; Admin Dose 36 UNIT; Start 03/18/17 at 21:00 DEMETRIA KILGORE MD Mar 19, 2017 12:53
[2017-03-20] MEDS: LACTATED RINGER'S 1,000 ML IV SCH ×2 (02:49→10:58)
[2017-03-20] MEDS: ACCU-CHEK XX SCH ×8 (09:15→21:22)
[2017-03-20] MEDS: INSULIN ASPART [NOVOLOG] 3 ML PEN SC SCH ×3 (09:35→17:35)
[2017-03-20] MEDS: INSULIN DETEMIR [LEVEMIR] 3ML CART SC SCH ×2 (09:37→21:21)
[2017-03-20] MEDS: FOLIC ACID 1 MG TAB PO SCH (09:45)
[2017-03-20] MEDS: PRENATAL VITAMIN PO SCH (09:45)
--- NOTE | 2017-03-20 13:51 | QN ---
Documentation Comment Patient with occasional contractions. Afebrile VSS Strip Reactive Cervix 3 cm Continue with expectant management. Adjust insulin as needed. SUDHA LOBATO MD Mar 20, 2017 13:50
[2017-03-21] MEDS: ACCU-CHEK XX SCH ×8 (09:55→21:00)
[2017-03-21] MEDS: PRENATAL VITAMIN PO SCH (09:59)
[2017-03-21] MEDS: FOLIC ACID 1 MG TAB PO SCH (09:59)
[2017-03-21] MEDS: INSULIN ASPART [NOVOLOG] 3 ML PEN SC SCH ×3 (10:03→17:31)
[2017-03-21] MEDS: INSULIN DETEMIR [LEVEMIR] 3ML CART SC SCH ×2 (10:05→21:26)
--- NOTE | 2017-03-21 19:09 | QN ---
Documentation Comment Patient with occasional contractions. Afebrile VSS Strip Reactive Blood glucose elevated. Insulin regimen adjusted by Perinatology. SUDHA LOBATO MD Mar 21, 2017 19:09
--- NOTE | 2017-03-21 19:22 | RADRPT ---
PROCEDURE: US OB biophysical profile. CLINICAL INDICATION: decreased movements, gestational diabetes TECHNIQUE: Multiple sonographic images of the pelvis were obtained. The images were reviewed on a PACS workstation. COMPARISON: 03/14/17 FINDINGS: There is a single viable intrauterine gestation. Cardiac activity is present with 137 beats per min rosanna. There is a vertex presentation. The placenta is fundal. There is no evidence of placental abruption. There is a normal amount of amniotic fluid with an ALETHEA = 13.7 cm. Biophysical profile: movement 2/2 tone 2/2. breathing 2/2 ALETHEA 2/2 Total 04/23 RPTAT: AA . IMPRESSION: Normal biophysical profile. . .Bigg Viveros MD, MD Date Time Electronically viewed and signed by .Bigg Viveros MD, MD on 03/21/2017 19:22 .S/
[2017-03-22] MEDS: ACCU-CHEK XX SCH ×8 (07:30→21:00)
[2017-03-22] MEDS: PRENATAL VITAMIN PO SCH (08:58)
[2017-03-22] MEDS: FOLIC ACID 1 MG TAB PO SCH (08:58)
[2017-03-22] MEDS: INSULIN ASPART [NOVOLOG] 3 ML PEN SC SCH ×3 (09:00→17:31)
[2017-03-22] MEDS: INSULIN DETEMIR [LEVEMIR] 3ML CART SC SCH ×2 (09:01→21:45)
--- NOTE | 2017-03-22 20:37 | QN ---
Documentation Comment Patient with contractions. Afebrile VSS Strip Reactive Blood glucose elevated Monitor blood glucose and adjust insulin accordingly. Monitor for labor. SUDHA LOBATO MD Mar 22, 2017 20:36
[2017-03-23] MEDS: ACCU-CHEK XX SCH ×4 (08:00→20:05)
[2017-03-23] MEDS: INSULIN ASPART [NOVOLOG] 3 ML PEN SC SCH ×3 (09:24→17:28)
[2017-03-23] MEDS: PRENATAL VITAMIN PO SCH (09:26)
[2017-03-23] MEDS: FOLIC ACID 1 MG TAB PO SCH (09:26)
[2017-03-23] MEDS: INSULIN DETEMIR [LEVEMIR] 3ML CART SC SCH ×2 (09:39→23:26)
--- NOTE | 2017-03-23 15:47 | QN ---
Documentation Comment No new complaint Afebrile VSS Strip Reactive with occasional contractions Blood glucose improving Continue with present care. SUDHA LOBATO MD Mar 23, 2017 15:47
[2017-03-24] MEDS: ACCU-CHEK XX SCH ×4 (07:30→20:00)
[2017-03-24] MEDS: INSULIN DETEMIR [LEVEMIR] 3ML CART SC SCH ×2 (09:08→20:15)
[2017-03-24] MEDS: INSULIN ASPART [NOVOLOG] 3 ML PEN SC SCH ×3 (09:10→17:23)
[2017-03-24] MEDS: FOLIC ACID 1 MG TAB PO SCH (09:11)
[2017-03-24] MEDS: PRENATAL VITAMIN PO SCH (09:11)
--- NOTE | 2017-03-24 23:10 | QN ---
Documentation Comment C/O contractions. Afebrile VSS Strip Reactive Continue with present care. SUDHA LOABTO MD Mar 24, 2017 23:10
--- NOTE | 2017-03-25 07:58 | RADRPT ---
PROCEDURE: US biophysical profile. CLINICAL INDICATION: Decreased motion. TECHNIQUE: Multiple sonographic images of the uterus were obtained. The images were revi ewed on a PACS workstation. COMPARISON: 03/21/2017. FINDINGS: There is a single live intrauterine gestation. heart rate is 126 beats per minute. The position is cephalic. The placenta is posterior grade II with no abruption or previa. The ALETHEA is 11.1 cm. (Normal = 5-20 cm.) Breathing Movement: 2 Gross Body Movement: 2 Tone: 2 Qualitative Amniotic Fluid Volume: 2 TOTAL: 8 IMPRESSION: 1. The biophysical score is 8/8. RPTAT: QQ .El Beasley MD, MD Date Time Electronically viewed and signed by .El Beasley MD, MD on 03/25/2017 07:57 .R/
[2017-03-25] MEDS: ACCU-CHEK XX SCH ×3 (08:28→14:57)
[2017-03-25] MEDS: INSULIN DETEMIR [LEVEMIR] 3ML CART SC SCH ×2 (08:33→21:29)
[2017-03-25] MEDS: INSULIN ASPART [NOVOLOG] 3 ML PEN SC SCH ×3 (08:34→17:29)
[2017-03-25] MEDS: FOLIC ACID 1 MG TAB PO SCH (08:39)
[2017-03-25] MEDS: PRENATAL VITAMIN PO SCH (08:39)
[2017-03-26] MEDS: ACCU-CHEK XX SCH ×3 (07:56→20:05)
[2017-03-26] MEDS: FOLIC ACID 1 MG TAB PO SCH (08:42)
[2017-03-26] MEDS: PRENATAL VITAMIN PO SCH (08:42)
[2017-03-26] MEDS: INSULIN ASPART [NOVOLOG] 3 ML PEN SC SCH ×3 (08:45→17:45)
[2017-03-26] MEDS: INSULIN DETEMIR [LEVEMIR] 3ML CART SC SCH ×2 (08:47→21:13)
[2017-03-26] MEDS: metFORMIN 500 MG TAB PO SCH ×3 (13:06→21:10)
--- NOTE | 2017-03-26 14:34 | QN ---
Documentation Comment Patient with occasional contractions Afebrile VSS Strip Reactive Blood glucose still elevated Continue care per Perinatology. SUDHA LOBATO MD Mar 26, 2017 14:34
[2017-03-27] MEDS: INSULIN ASPART [NOVOLOG] 3 ML PEN SC SCH ×3 (09:05→17:35)
[2017-03-27] MEDS: INSULIN DETEMIR [LEVEMIR] 3ML CART SC SCH ×2 (09:19→21:16)
[2017-03-27] MEDS: metFORMIN 500 MG TAB PO SCH ×4 (09:20→21:15)
[2017-03-27] MEDS: PRENATAL VITAMIN PO SCH (09:20)
[2017-03-27] MEDS: ACCU-CHEK XX SCH ×4 (09:20→20:05)
[2017-03-27] MEDS: FOLIC ACID 1 MG TAB PO SCH (09:20)
[2017-03-27] MEDS ORDERED: INSULIN ASPART [NOVOLOG] 3 ML PEN SC SCH (11:30)
--- NOTE | 2017-03-27 21:47 | QN ---
Documentation Comment C/O contractions. Afebrile VSS Strip Reactive Blood glucose still elevated. Adjust insulin per Perinatology. SUDHA LOBATO MD Mar 27, 2017 21:47
--- NOTE | 2017-03-28 08:04 | RADRPT ---
PROCEDURE: OB ultrasound for biophysical profile CLINICAL INDICATION: Biophysical profile. TECHNIQUE: Multiple sonographic images of the pelvis were obtained. Transabdominal view of the gr avid uterus are available for review. The images were reviewed on a PACS workstation. COMPARISON: 03/25/2017. FINDINGS: breathing movement = 2/2 tone = 2/2 motion = 2/2 Quantitative amniotic fluid volume = 2/2 ALETHEA = 14.4 cm Single live intrauterine with cardiac activity at 120 beats per minute. There is a posterior placenta without previa. IMPRESSION: 1. Single living intrauterine gestation in cephalic position. 2. Biophysical profile = 8. 3. ALETHEA = 14.4 cm. RPTAT: [facility] Physician Fercho Date Time Electronically viewed and signed by Physician Fercho on 03/28/2017 08:03 /
[2017-03-28] MEDS: PRENATAL VITAMIN PO SCH (08:21)
[2017-03-28] MEDS: FOLIC ACID 1 MG TAB PO SCH (08:22)
[2017-03-28] MEDS: metFORMIN 500 MG TAB PO SCH ×2 (08:22→20:59)
[2017-03-28] MEDS: ACCU-CHEK XX SCH ×4 (08:22→20:28)
[2017-03-28] MEDS: INSULIN ASPART [NOVOLOG] 3 ML PEN SC SCH ×3 (08:51→17:21)
[2017-03-28] MEDS: INSULIN DETEMIR [LEVEMIR] 3ML CART SC SCH ×2 (08:53→21:03)
--- NOTE | 2017-03-28 19:40 | QN ---
Documentation Comment Patient with occasional contractions Afebrile VSS Strip Reactive Continue care per Perinatology. SUDHA LOBATO MD Mar 28, 2017 19:39
[2017-03-29] MEDS: ACCU-CHEK XX SCH ×4 (08:00→20:19)
[2017-03-29] MEDS: INSULIN ASPART [NOVOLOG] 3 ML PEN SC SCH ×3 (08:56→17:34)
[2017-03-29] MEDS: INSULIN DETEMIR [LEVEMIR] 3ML CART SC SCH ×2 (08:59→20:55)
[2017-03-29] MEDS: metFORMIN 500 MG TAB PO SCH ×2 (09:00→20:52)
[2017-03-29] MEDS: PRENATAL VITAMIN PO SCH (09:00)
[2017-03-29] MEDS: FOLIC ACID 1 MG TAB PO SCH (09:01)
--- NOTE | 2017-03-29 20:07 | QN ---
Documentation Comment C/O occasional contractions Afebile VSS Strip Reactive Continue present care. SUDHA LOBATO MD Mar 29, 2017 20:07
[2017-03-30] MEDS: PRENATAL VITAMIN PO SCH (08:59)
[2017-03-30] MEDS: FOLIC ACID 1 MG TAB PO SCH (09:00)
[2017-03-30] MEDS: metFORMIN 500 MG TAB PO SCH ×2 (09:00→21:08)
[2017-03-30] MEDS: ACCU-CHEK XX SCH ×4 (09:08→20:04)
[2017-03-30] MEDS: INSULIN DETEMIR [LEVEMIR] 3ML CART SC SCH ×2 (09:11→21:13)
[2017-03-30] MEDS: INSULIN ASPART [NOVOLOG] 3 ML PEN SC SCH ×3 (09:12→17:26)
--- NOTE | 2017-03-30 17:08 | QN ---
Documentation Comment C/O contractions. Afebrile VSS Strip Reactive Cervix 3 cm Continue present care. SUDHA LOBATO MD Mar 30, 2017 17:08
[2017-03-31] MEDS: ACCU-CHEK XX SCH ×4 (08:22→20:52)
[2017-03-31] MEDS: INSULIN ASPART [NOVOLOG] 3 ML PEN SC SCH ×3 (08:40→17:19)
[2017-03-31] MEDS: INSULIN DETEMIR [LEVEMIR] 3ML CART SC SCH ×2 (08:42→21:29)
[2017-03-31] MEDS: metFORMIN 500 MG TAB PO SCH ×2 (08:43→21:26)
[2017-03-31] MEDS: PRENATAL VITAMIN PO SCH (08:43)
[2017-03-31] MEDS: FOLIC ACID 1 MG TAB PO SCH (08:43)
--- NOTE | 2017-03-31 21:21 | QN ---
Documentation Comment C/O contractions Afebrile VSS Strip Reactive Continue care per Perinatology. SUDHA LOBATO MD Mar 31, 2017 21:21
--- NOTE | 2017-04-01 08:36 | RADRPT ---
PROCEDURE: US Limited OB. CLINICAL INDICATION: Estimated weight. TECHNIQUE: Multiple sonographic images of the pelvis were obtained. Transabdominal imaging only w as performed. COMPARISON: 03/28/2017. FINDINGS: Cardiac activity is present with 124 beats per minute. Presentation is vertex. Measurements were made in order to determine age. The results are as follows: BPD = 37 w 5 d HC = 37 w 1 d AC = 37 w 1 d FL = 37 w 5 d Estimated weight is 3195 g. The placenta is posterior, with no evidence of previa. IMPRESSION: 1. Single, live intrauterine with estimated age of 37 weeks, 3 days. 2. Estimated weight: 3195 g, 57.7%. RPTAT: EE .Eros Moeller MD, Date Time Electronically viewed and signed by .Eros Moeller MD, on 04/01/2017 08:41 .C/
[2017-04-01] MEDS: ACCU-CHEK XX SCH ×4 (09:10→20:51)
[2017-04-01] MEDS: INSULIN ASPART [NOVOLOG] 3 ML PEN SC SCH ×3 (09:14→17:34)
[2017-04-01] MEDS: INSULIN DETEMIR [LEVEMIR] 3ML CART SC SCH ×2 (09:16→21:10)
[2017-04-01] MEDS: metFORMIN 500 MG TAB PO SCH ×2 (09:19→21:34)
[2017-04-01] MEDS: PRENATAL VITAMIN PO SCH (09:19)
[2017-04-01] MEDS: FOLIC ACID 1 MG TAB PO SCH (09:19)
--- NOTE | 2017-04-01 19:56 | QN ---
Documentation Comment No complaint Afebrile VSS Strip Reactive Continue present care. SUDHA LOBATO MD Apr 01, 2017 19:55
[2017-04-02] MEDS: ACCU-CHEK XX SCH ×4 (08:24→20:40)
[2017-04-02] MEDS: PRENATAL VITAMIN PO SCH (08:25)
[2017-04-02] MEDS: metFORMIN 500 MG TAB PO SCH ×2 (08:25→21:07)
[2017-04-02] MEDS: FOLIC ACID 1 MG TAB PO SCH (08:25)
[2017-04-02] MEDS: INSULIN ASPART [NOVOLOG] 3 ML PEN SC SCH ×3 (08:55→17:32)
[2017-04-02] MEDS: INSULIN DETEMIR [LEVEMIR] 3ML CART SC SCH ×2 (08:56→21:10)
--- NOTE | 2017-04-02 21:30 | QN ---
Documentation Comment No new complaint Afebrile VSS Strip Reactive Will transfer to L&D for augmentation of labor. SUDHA LOBATO MD Apr 02, 2017 21:30
[2017-04-03 00:38] LABS: ADD SCAN DIFF NO
[2017-04-03 00:44] LABS: BASOPHILS % 0.4 % (0.0-2.0); EOSINOPHILS # 0.3 10^3/ul (0.0-0.5); HEMATOCRIT 34.7 % (37.0-47.0); HEMOGLOBIN 11.5 g/dl (12.0-16.0); LYMPHOCYTES % 27.9 % (15.0-51.0); MEAN CORPUSCULAR HEMOGLOBIN 27.6 pg (29.0-33.0); MEAN CORPUSCULAR HGB CONC 33.1 g/dl (32.0-37.0); MEAN CORPUSCULAR VOLUME 83.2 fl (82.0-101.0); MEAN PLATELET VOLUME 10.5 fl (7.4-10.4); MONOCYTE # 0.6 10^3/ul (0.3-0.9); MONOCYTES % 5.8 % (0.0-11.0); NEUTROPHIL # 6.7 10^3/ul (1.6-7.5); NEUTROPHILS % 62.3 % (39.0-77.0); PLATELET COUNT 212 10^3/UL (140-415); RED BLOOD COUNT 4.17 10^6/ul (4.20-5.40); RED CELL DISTRIBUTION WIDTH 13.2 % (11.5-14.5); WHITE BLOOD COUNT 10.8 10^3/ul (4.8-10.8)
[2017-04-03 00:59] LABS: INR 0.9; PARTIAL THROMBOPLASTIN TIME 25.1 Sec (25.0-35.0); PROTIME 12.1 Sec (12.2-14.2); PT RATIO 0.9
[2017-04-03] MEDS: ACCU-CHEK XX SCH ×4 (08:00→21:02)
[2017-04-03] MEDS: INSULIN ASPART [NOVOLOG] 3 ML PEN SC SCH ×3 (08:56→17:05)
[2017-04-03] MEDS: INSULIN DETEMIR [LEVEMIR] 3ML CART SC SCH ×2 (08:58→21:00)
[2017-04-03] MEDS: PRENATAL VITAMIN PO SCH (08:59)
[2017-04-03] MEDS: FOLIC ACID 1 MG TAB PO SCH (08:59)
[2017-04-03] MEDS: metFORMIN 500 MG TAB PO SCH ×2 (08:59→21:00)
[2017-04-03] MEDS ORDERED: DEXTROSE 5%-LR 1,000 ML IV SCH (15:55)
[2017-04-03] MEDS ORDERED: LACTATED RINGER'S 1,000 ML IV SCH (15:55)
[2017-04-03] MEDS ORDERED: BUTORPHANOL 2 MG INJ IV PRN (16:00)
[2017-04-03] MEDS ORDERED: LACTATED RINGER'S 1,000 ML IV PRN (16:00)
[2017-04-03] MEDS ORDERED: OXYTOCIN 30 UNITS/LR 500 ML IV SCH (16:00)
[2017-04-03] MEDS ORDERED: METHYLERGONOVINE 0.2 MG INJ IM PRN (16:00)
[2017-04-03] MEDS ORDERED: LIDOCAINE 1% (MPF) 30 ML INJ INJ PRN (16:00)
[2017-04-03] MEDS ORDERED: OXYTOCIN 30 UNITS/LR 500 ML IV PRN (16:00)
[2017-04-03] MEDS ORDERED: MISOPROSTOL 200 MCG TAB PR PRN (16:00)
[2017-04-03] MEDS ORDERED: AMPICILLIN 2 GM/NS (PMX) 100 ML IV ONE (16:00)
[2017-04-03] MEDS ORDERED: IBUPROFEN 600 MG TAB PO PRN (16:00)
[2017-04-03] MEDS: AMPICILLIN 1 GM/NS (PMX) 50 ML IV SCH (19:59)
[2017-04-04] MEDS: AMPICILLIN 1 GM/NS (PMX) 50 ML IV SCH ×2 (00:06→04:00)
[2017-04-04] MEDS: OXYTOCIN 30 UNITS/LR 500 ML IV SCH ×4 (03:29→05:03)
[2017-04-04] MEDS: CARBOPROST 250 MCG INJ IM PRN ×2 (03:39→04:07)
[2017-04-04] MEDS ORDERED: MISOPROSTOL 200 MCG TAB PO ONE ×2 (03:40→03:45)
[2017-04-04] MEDS ORDERED: CEFAZOLIN 2 GM/50 ML (PMX) 50 ML IVPB ONE ×2 (03:50→03:52)
[2017-04-04] MEDS ORDERED: morphine 2 MG INJ IV ONE (03:50)
[2017-04-04] MEDS ORDERED: morphine 10 MG INJ ONE (03:52)
[2017-04-04] MEDS ORDERED: morphine 10 MG INJ IV ONE (04:00)
--- NOTE | 2017-04-04 04:48 | LDN ---
Date/Time of Note Date/Time of Note DATE: 04/04/17 TIME: 04:32 Delivery Summary . Placenta and membranes delivered spontaneously and complete. hemorrhage noted. Uterus explored and massaged. Methergine 0.2 mg IM, Hemabate 0.25 mg IM x2 doses and Cytotec 1000 mcg PO given. After IV analgesia was given, using a large curette, sharp curettage was performed. Uterus subsequently became firm. Weeks of Gestation 37 weeks and 1 day Placenta Delivered: Spontaneously Meconium: none Episiotomy: No Perineal laceration: 1 Laceration repair: Second degree perineal laceration repaired with 3-0 Vicryl and 3-0 chromic. Anesthesia type: Local Estimated blood loss: 1200 Sponge & Needle done & correct: Yes All needle counts correct: Yes Any foreign bodies felt in the: No Problems: (1) Type 2 diabetes mellitus affecting in third trimester, antepartum Delivery Information Sex Infant Sex: male Apgars 1 Minute: 9 5 Minute: 9 Suctioning Nose & mouth suctioned at abby: Yes Delee suction performed: No Umbilical Cord Umbilical cord with: 3 Vessels Cord presentations: no nuchal cord Cord Blood was obtained: Yes Mother & Baby Disposition Disposition Mom & Baby to Maternity; Good: Yes Baby to NICU: No SUDHA LOBATO MD Apr 04, 2017 04:43
[2017-04-04 05:50] LABS: ADD SCAN DIFF NO
[2017-04-04 05:55] LABS: BASOPHIL # 0.1 10^3/ul (0.0-0.1); BASOPHILS % 0.3 % (0.0-2.0); EOSINOPHILS # 0.1 10^3/ul (0.0-0.5); EOSINOPHILS % 0.2 % (0.0-7.0); HEMATOCRIT 31.1 % (37.0-47.0); HEMOGLOBIN 10.2 g/dl (12.0-16.0); LYMPHOCYTES # 1.5 10^3/ul (0.8-2.9); LYMPHOCYTES % 6.7 % (15.0-51.0); MEAN CORPUSCULAR HEMOGLOBIN 27.6 pg (29.0-33.0); MEAN CORPUSCULAR HGB CONC 32.8 g/dl (32.0-37.0); MEAN CORPUSCULAR VOLUME 84.1 fl (82.0-101.0); MEAN PLATELET VOLUME 10.6 fl (7.4-10.4); MONOCYTES % 4.5 % (0.0-11.0); NEUTROPHIL # 19.9 10^3/ul (1.6-7.5); NEUTROPHILS % 87.7 % (39.0-77.0); PLATELET COUNT 211 10^3/UL (140-415); RED CELL DISTRIBUTION WIDTH 13.2 % (11.5-14.5); WHITE BLOOD COUNT 22.7 10^3/ul (4.8-10.8)
[2017-04-04 08:30] VITALS: BP 120/66; PULSE 84; RESP 18
[2017-04-04] MEDS ORDERED: OXYTOCIN 30 UNITS/LR 500 ML IV PRN (09:00)
[2017-04-04] MEDS ORDERED: CARBOPROST 250 MCG INJ IM PRN (09:00)
[2017-04-04] MEDS ORDERED: WITCH HAZEL/GLYCERIN PAD PR PRN (09:00)
[2017-04-04] MEDS ORDERED: BENZOCAINE 20% 56 ML SPRAY TOP PRN (09:00)
[2017-04-04] MEDS ORDERED: METHYLERGONOVINE 0.2 MG INJ IM PRN (09:00)
[2017-04-04] MEDS ORDERED: DIBUCAINE 1% 30 GM OINT TOP PRN (09:00)
[2017-04-04] MEDS ORDERED: ACETAMINOPHEN/CODEINE #3 TAB PO PRN (09:00)
[2017-04-04] MEDS ORDERED: ACETAMINOPHEN 325 MG TAB PO PRN (09:00)
[2017-04-04] MEDS ORDERED: MISOPROSTOL 200 MCG TAB PR PRN (09:00)
[2017-04-04] MEDS: LACTATED RINGER'S 1,000 ML IV* SCH ×2 (09:06→17:42)
[2017-04-04] MEDS: FERROUS SULFATE (EC) 325 MG TAB PO SCH ×3 (09:10→21:18)
[2017-04-04] MEDS: FOLIC ACID 1 MG TAB PO SCH (09:10)
[2017-04-04] MEDS: SENNA/DOCUSATE NA (8.6MG/50MG) TAB PO SCH ×2 (10:10→21:18)
[2017-04-04] MEDS: MULTIVITAMINS THERAPEUTIC TAB PO SCH (10:10)
[2017-04-04 10:50] VITALS: BP 110/53; PULSE 72; RESP 18
[2017-04-04] MEDS ORDERED: GLUCOSE GEL 15 GRAM TUBE BUCCAL PRN (11:30)
[2017-04-04] MEDS ORDERED: GLUCAGON 1 MG INJ IM PRN (11:30)
[2017-04-04] MEDS ORDERED: DEXTROSE 50% 50 ML SYRINGE IV PRN ×2 (11:30)
[2017-04-04] MEDS ORDERED: GLUCOSE GEL 15 GRAM TUBE PO PRN ×2 (11:30)
[2017-04-04 11:32] LABS: ADD SCAN DIFF NO
[2017-04-04 11:44] LABS: BASOPHILS % 0.2 % (0.0-2.0); EOSINOPHILS # 0.1 10^3/ul (0.0-0.5); EOSINOPHILS % 0.4 % (0.0-7.0); HEMATOCRIT 25.2 % (37.0-47.0); HEMOGLOBIN 8.7 g/dl (12.0-16.0); LYMPHOCYTES # 1.8 10^3/ul (0.8-2.9); LYMPHOCYTES % 10.3 % (15.0-51.0); MEAN CORPUSCULAR HEMOGLOBIN 28.6 pg (29.0-33.0); MEAN CORPUSCULAR HGB CONC 34.5 g/dl (32.0-37.0); MEAN CORPUSCULAR VOLUME 82.9 fl (82.0-101.0); MEAN PLATELET VOLUME 10.7 fl (7.4-10.4); NEUTROPHIL # 14.1 10^3/ul (1.6-7.5); NEUTROPHILS % 82.5 % (39.0-77.0); PLATELET COUNT 197 10^3/UL (140-415); RED BLOOD COUNT 3.04 10^6/ul (4.20-5.40)
[2017-04-04] MEDS: ACCU-CHEK XX SCH ×4 (12:28→21:05)
[2017-04-04] MEDS: IBUPROFEN 600 MG TAB PO SCH ×3 (12:31→23:16)
[2017-04-04] MEDS: INSULIN ASPART [NOVOLOG] 3 ML PEN SC SCH ×2 (12:33→17:44)
--- NOTE | 2017-04-04 13:56 | CONS ---
Date/Time of Note Date/Time of Note DATE: 04/04/17 TIME: 13:51 Assessment/Plan Assessment/Plan Problems: (1) Nonalcoholic fatty liver disease Status: Chronic Comment: This does not appear to be an active medical problem. However I do not find any evidence that a hepatitis C antibody was ever checked. I will go ahead and check this just to be thorough. (2) Hyperlipidemia Status: Chronic Comment: Noted. Immediate phase no indication to use statins. When she is finished breast-feeding we can revisit this assuming that there are no further plans for which would contraindicate statin therapy Qualifiers: Qualified Code: E78.00 - Pure hypercholesterolemia (3) Essential hypertension Status: Chronic Comment: At this time she is normotensive. When she is no longer breast- feeding and has no future plans for pregnancies and low-dose QIANA inhibitor would be appropriate (4) Diabetes mellitus type 2 in obese Status: Chronic Comment: She has been on long-term insulin therapy for this. Given that she is planning to breast-feed will use low-dose metformin but also insulin in the setting. (5) Family history of diabetes mellitus in mother Comment: Noted. (6) Family history of diabetes mellitus in father Comment: Noted. Consultation Date/Type/Reason Admit Date/Time Mar 14, 2017 at 13:46 Date of Consultation: Apr 04, 2017 Type of Consultation: Endocrinology Reason for Consultation Diabetes mellitus type 2 on insulin-based therapy for many years now immediately . Referring Provider: SUDHA LOBATO MD Hx of Present Illness Charming 41-year-old female Ab2 immediately from delivery of what appears to be a healthy male child. She had advanced maternal age. However she carries at least an 18 year history of diabetes mellitus type 2 treated as an outpatient prepregnancy with metformin in combination with 7030 insulin twice a day. Her A1c is that I have available to me from the chart demonstrate an initial A1c of 11 and then at 9.3. The patient did apparently have a hemorrhage requiring further workup by Dr. Gordon. At this time she reports she is doing well. She denies any known complications of diabetic retinopathy nephropathy neuropathy or vascular disease. 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 Past Surgical History Past Surgical Hx: no surgical history Family History Significant Family History: diabetes Social History Alcohol Use: none Smoking Status: Never smoker Drug Use: none Exam/Review of Systems Vital Signs Vitals Intake and Output 04/03/17 04/03/17 04/04/17 15:00 23:00 07:00 Intake Total 731.7 ml 2581.0 ml Output Total 1869 ml Balance 731.7 ml 712.0 ml Exam Constitutional: alert, oriented Head: atraumatic, normocephalic Eyes: EOMI, nl conjunctiva, nl lids, nl sclera ENMT: mucosa pink and moist, nl external ears & nose, nl lips & teeth, nl nasal mucosa & septum Neck: non-tender, supple, thyromegaly (No thyromegaly) Respiratory: clear to auscultation, normal air movement Cardiovascular: nl pulses, regular rate and rhythm Results Result Diagram: 04/04/17 1109 Results 24 hrs Laboratory Tests Test 04/03/17 14:59 04/03/17 17:02 04/03/17 19:04 04/03/17 21:02 Bedside Glucose 100 78 100 96 Test 04/03/17 23:06 04/04/17 01:35 04/04/17 05:33 04/04/17 10:49 Bedside Glucose 96 106 250 H White Blood Count 22.7 #H Red Blood Count 3.70 L Hemoglobin 10.2 L Hematocrit 31.1 L Mean Corpuscular Volume 84.1 Mean Corpuscular Hemoglobin 27.6 L Mean Corpuscular Hemoglobin Concent 32.8 Red Cell Distribution Width 13.2 Platelet Count 211 Mean Platelet Volume 10.6 H Neutrophils % 87.7 H Lymphocytes % 6.7 L Monocytes % 4.5 Eosinophils % 0.2 Basophils % 0.3 Nucleated Red Blood Cells % 0.0 Neutrophils # 19.9 H Lymphocytes # 1.5 Monocytes # 1.0 H Eosinophils # 0.1 Basophils # 0.1 Nucleated Red Blood Cells # 0.0 Test 04/04/17 11:09 04/04/17 12:36 White Blood Count 17.0 #H Red Blood Count 3.04 L Hemoglobin 8.7 L Hematocrit 25.2 L Mean Corpuscular Volume 82.9 Mean Corpuscular Hemoglobin 28.6 L Mean Corpuscular Hemoglobin Concent 34.5 Red Cell Distribution Width 13.0 Platelet Count 197 Mean Platelet Volume 10.7 H Neutrophils % 82.5 H Lymphocytes % 10.3 L Monocytes % 6.0 Eosinophils % 0.4 Basophils % 0.2 Nucleated Red Blood Cells % 0.0 Neutrophils # 14.1 H Lymphocytes # 1.8 Monocytes # 1.0 H Eosinophils # 0.1 Basophils # 0.0 Nucleated Red Blood Cells # 0.0 Bedside Glucose 216 Medications Medications Current Medications Diagnostic Test (Pha) (Accu-Chek) 1 ea FBSPP XX Last administered on 04/04/17 12:35; Admin Dose 1 EA; Start 03/14/17 at 20:05 Ferrous Sulfate (Ferrous Sulfate (Ec)) 325 mg TID PO Last administered on 12:41; Admin Dose 325 MG; Start 04/04/17 at 09:00 Folic Acid (Folic Acid) 1 mg DAILY PO Last administered on 04/04/17 09:10; Admin Dose 1 MG; Start 04/04/17 at 09:00 Multivitamins Therapeutic 1 tab 1 tab DAILY PO Last administered on 04/04/17 10:10; Admin Dose 1 TAB; Start 04/04/17 at 09:00 Lactated Ringer's (Lr) 1,000 ml @ 125 mls/hr Q8H IV* Last administered on 04/04 09:06; Admin Dose 125 MLS/HR; Start 04/04/17 at 08:38 Ibuprofen (Motrin) 600 mg Q6 PO Last administered on 04/04/17 12:31; Admin Dose 600 MG; Start 04/04/17 at 12:00 Acetaminophen (Tylenol Tab) 650 mg Q4H PRN PO PAIN LEVEL 1-5; Start 04/04/17 at 09:00 Acetaminophen/ Codeine Phosphate (Tylenol No.3) 1 tab Q4H PRN PO PAIN LEVEL 1-5 ; Start 04/04/17 at 09:00 Senna/Docusate Sodium (Senokot-S) 1 tab BID PO Last administered on 04/04/17 10:10; Admin Dose 1 TAB; Start 04/04/17 at 09:00 Diphtheria/ Tetanus/Acell Pertussis 0.5 ml 0.5 ml ONCE ONCE IM* ; Start at 09:00; Stop 04/06/17 at 09:01 Oxytocin/Lactated Ringer's 500 ml @ 0 mls/hr ONCE PRN IV For Hemorrhage Management; Start 04/04/17 at 09:00 Methylergonovine Maleate (Methergine) 0.2 mg ONCE PRN IM VAGINAL BLEEDING; Start 04/04/17 at 09:00 Carboprost Tromethamine (Hemabate) 250 mcg ONCE PRN IM VAGINAL BLEEDING; Start 04/04/17 at 09:00 Misoprostol (Cytotec) 1,000 mcg ONCE PRN [place] VAGINAL BLEEDING; Start 04/04/17 at 09:00 Miscellaneous Information 1 ea NOTE XX ; Start 04/04/17 at 11:30 Glucose (Glutose) 15 gm Q15M PRN PO DECREASED GLUCOSE; Start 04/04/17 at 11:30 Glucose (Glutose) 22.5 gm Q15M PRN PO DECREASED GLUCOSE; Start 04/04/17 at 11: 30 Dextrose (D50w Syringe) 25 ml Q15M PRN IV DECREASED GLUCOSE; Start 04/04/17 at 11:30 Dextrose (D50w Syringe) 50 ml Q15M PRN IV DECREASED GLUCOSE; Start 04/04/17 at 11:30 Glucagon (Glucagen) 1 mg Q15M PRN IM DECREASED GLUCOSE; Start 04/04/17 at 11:30 Glucose (Glutose) 15 gm Q15M PRN BUCCAL DECREASED GLUCOSE; Start 04/04/17 at 11 :30 RANDY ERVIN MD Apr 04, 2017 13:56
[2017-04-04 15:27] LABS: THYROID STIMULATING HORMONE 0.881 MIU/L (0.465-4.680)
[2017-04-04 16:35] VITALS: BP 97/58; PULSE 90; RESP 18
[2017-04-04] MEDS: metFORMIN 500 MG TAB PO SCH (17:42)
[2017-04-04] MEDS ORDERED: INSULIN DETEMIR [LEVEMIR] 3ML CART SC SCH (20:00)
[2017-04-04 20:35] VITALS: BP 111/58; PULSE 97; RESP 18
[2017-04-05] VITALS: BP 108/55; PULSE 86; RESP 17
[2017-04-05] MEDS: LACTATED RINGER'S 1,000 ML IV* SCH ×3 (00:38→16:38)
[2017-04-05] MEDS: ACCU-CHEK XX SCH ×5 (02:00→20:05)
[2017-04-05 04:05] VITALS: BP 98/50; PULSE 76; RESP 17
[2017-04-05] MEDS: IBUPROFEN 600 MG TAB PO SCH ×4 (05:13→23:56)
[2017-04-05] MEDS: INSULIN ASPART [NOVOLOG] 3 ML PEN SC SCH ×3 (08:46→18:07)
[2017-04-05] MEDS: MULTIVITAMINS THERAPEUTIC TAB PO SCH (08:50)
[2017-04-05] MEDS: FOLIC ACID 1 MG TAB PO SCH (08:50)
[2017-04-05] MEDS: FERROUS SULFATE (EC) 325 MG TAB PO SCH ×3 (08:51→20:57)
[2017-04-05] MEDS: SENNA/DOCUSATE NA (8.6MG/50MG) TAB PO SCH ×2 (08:51→20:57)
[2017-04-05] MEDS: metFORMIN 500 MG TAB PO SCH ×2 (08:51→18:07)
[2017-04-05 10:25] VITALS: BP 98/42; PULSE 76; RESP 18
[2017-04-05 11:14] LABS: ADD SCAN DIFF NO
[2017-04-05 11:16] LABS: BASOPHILS % 0.3 % (0.0-2.0); EOSINOPHILS # 0.2 10^3/ul (0.0-0.5); EOSINOPHILS % 1.9 % (0.0-7.0); LYMPHOCYTES # 2.2 10^3/ul (0.8-2.9); LYMPHOCYTES % 20.3 % (15.0-51.0); MEAN CORPUSCULAR HEMOGLOBIN 27.9 pg (29.0-33.0); MEAN CORPUSCULAR HGB CONC 33.3 g/dl (32.0-37.0); MEAN CORPUSCULAR VOLUME 83.7 fl (82.0-101.0); MEAN PLATELET VOLUME 10.2 fl (7.4-10.4); MONOCYTE # 0.7 10^3/ul (0.3-0.9); MONOCYTES % 6.1 % (0.0-11.0); NEUTROPHIL # 7.7 10^3/ul (1.6-7.5); NEUTROPHILS % 70.8 % (39.0-77.0); PLATELET COUNT 193 10^3/UL (140-415); RED BLOOD COUNT 2.51 10^6/ul (4.20-5.40); RED CELL DISTRIBUTION WIDTH 13.2 % (11.5-14.5); WHITE BLOOD COUNT 10.9 10^3/ul (4.8-10.8)
--- NOTE | 2017-04-05 14:01 | CONS ---
Date/Time of Note Date/Time of Note DATE: 04/05/17 TIME: 13:59 Assessment/Plan Assessment/Plan Chief Complaint/Hosp Course Shea 41-year-old female Ab2 immediately from delivery of what appears to be a healthy male child. She had advanced maternal age. However she carries at least an 18 year history of diabetes mellitus type 2 treated as an outpatient prepregnancy with metformin in combination with 7030 insulin twice a day. Her A1c is that I have available to me from the chart demonstrate an initial A1c of 11 and then at 9.3. The patient did apparently have a hemorrhage requiring further workup by Dr. Gordon. At this time she reports she is doing well. She denies any known complications of diabetic retinopathy nephropathy neuropathy or vascular disease. Problems: (1) Nonalcoholic fatty liver disease Status: Chronic Comment: Noted. This is part and parcel of the insulin resistance syndrome. Continue observation. Please note she has hepatitis C antibody negative also (2) Hyperlipidemia Status: Chronic Comment: Noted. At this time since the patient's breast-feeding will not be throwing medications into the mix. Ultimately when she is done breast-feeding that she should go on statin therapy Qualifiers: Hyperlipidemia type: pure hypercholesterolemia Qualified Code: E78.00 - Pure hypercholesterolemia (3) Essential hypertension Status: Chronic Comment: She is normotensive which is not a surprise. This will need to be observed that would be as it would not be unusual to have her blood pressure rise. She will go to QIANA inhibitor therapy once she is successfully finished breast-feeding (4) Diabetes mellitus type 2 in obese Status: Chronic Comment: Her blood sugar control is fair. I will fine-tune the basal and bolus rates to get her under tighter control. She is approaching time on discharge is a consideration as per the primary team Consultation Date/Type/Reason Admit Date/Time Mar 14, 2017 at 13:46 Initial Consult Date 04/04/17 Type of Consultation: Endocrinology Reason for Consultation Diabetes mellitus type 2 since age 23; Referring Provider: SUDHA LOBATO MD 24 HR Interval Summary Constitutional: no complaints Detailed Summary Respiratory: no complaints Cardiovascular: no complaints Exam/Review of Systems Vital Signs Vitals Vital Signs Date Time Temp Pulse Resp B/P Pulse Ox O2 Delivery O2 Flow Rate FiO2 04/05/17 10:25 98.1 76 18 98/42 04/05/17 04:05 Room Air 04/04/17 10:50 98 Intake and Output 04/04/17 04/04/17 04/05/17 15:00 23:00 07:00 Intake Total 1230 ml 980 ml Output Total 1100 ml 800 ml Balance 130 ml 180 ml Exam Constitutional: alert, oriented Cardiovascular: nl pulses, regular rate and rhythm Gastrointestinal: nl liver, spleen, non-tender, soft Results Result Diagram: 04/05/17 1102 Results 24 hrs Laboratory Tests Test 04/04/17 14:20 04/04/17 16:14 04/04/17 21:04 04/05/17 02:03 Thyroid Stimulating Hormone (TSH) 0.881 Hepatitis C Antibody NEGATIVE Bedside Glucose 209 195 162 Test 04/05/17 08:26 04/05/17 10:39 04/05/17 11:02 Bedside Glucose 142 164 White Blood Count 10.9 #H Red Blood Count 2.51 L Hemoglobin 7.0 L Hematocrit 21.0 L Mean Corpuscular Volume 83.7 Mean Corpuscular Hemoglobin 27.9 L Mean Corpuscular Hemoglobin Concent 33.3 Red Cell Distribution Width 13.2 Platelet Count 193 Mean Platelet Volume 10.2 Neutrophils % 70.8 Lymphocytes % 20.3 Monocytes % 6.1 Eosinophils % 1.9 Basophils % 0.3 Neutrophils # 7.7 H Lymphocytes # 2.2 Monocytes # 0.7 Eosinophils # 0.2 Basophils # 0.0 Nucleated Red Blood Cells # 0.0 Medications Medications Current Medications Diagnostic Test (Pha) (Accu-Chek) 1 ea FBSPP XX Last administered on 04/04/17 13:50; Admin Dose 1 EA; Start 03/14/17 at 20:05 Ferrous Sulfate (Ferrous Sulfate (Ec)) 325 mg TID PO Last administered on 13:11; Admin Dose 325 MG; Start 04/04/17 at 09:00 Folic Acid (Folic Acid) 1 mg DAILY PO Last administered on 04/05/17 08:50; Admin Dose 1 MG; Start 04/04/17 at 09:00 Multivitamins Therapeutic 1 tab 1 tab DAILY PO Last administered on 04/05/17 08:50; Admin Dose 1 TAB; Start 04/04/17 at 09:00 Lactated Ringer's (Lr) 1,000 ml @ 125 mls/hr Q8H IV* Last administered on 04/04 17:42; Admin Dose 125 MLS/HR; Start 04/04/17 at 08:38 Ibuprofen (Motrin) 600 mg Q6 PO Last administered on 04/05/17 11:59; Admin Dose 600 MG; Start 04/04/17 at 12:00 Acetaminophen (Tylenol Tab) 650 mg Q4H PRN PO PAIN LEVEL 1-5; Start 04/04/17 at 09:00 Acetaminophen/ Codeine Phosphate (Tylenol No.3) 1 tab Q4H PRN PO PAIN LEVEL 1-5 ; Start 04/04/17 at 09:00 Senna/Docusate Sodium (Senokot-S) 1 tab BID PO Last administered on 04/05/17 08:51; Admin Dose 1 TAB; Start 04/04/17 at 09:00 Diphtheria/ Tetanus/Acell Pertussis 0.5 ml 0.5 ml ONCE ONCE IM* ; Start at 09:00; Stop 04/06/17 at 09:01 Oxytocin/Lactated Ringer's 500 ml @ 0 mls/hr ONCE PRN IV For Hemorrhage Management; Start 04/04/17 at 09:00 Methylergonovine Maleate (Methergine) 0.2 mg ONCE PRN IM VAGINAL BLEEDING; Start 04/04/17 at 09:00 Carboprost Tromethamine (Hemabate) 250 mcg ONCE PRN IM VAGINAL BLEEDING; Start 04/04/17 at 09:00 Misoprostol (Cytotec) 1,000 mcg ONCE PRN [place] VAGINAL BLEEDING; Start 04/04/17 at 09:00 Miscellaneous Information 1 ea NOTE XX ; Start 04/04/17 at 11:30 Glucose (Glutose) 15 gm Q15M PRN PO DECREASED GLUCOSE; Start 04/04/17 at 11:30 Glucose (Glutose) 22.5 gm Q15M PRN PO DECREASED GLUCOSE; Start 04/04/17 at 11: 30 Dextrose (D50w Syringe) 25 ml Q15M PRN IV DECREASED GLUCOSE; Start 04/04/17 at 11:30 Dextrose (D50w Syringe) 50 ml Q15M PRN IV DECREASED GLUCOSE; Start 04/04/17 at 11:30 Glucagon (Glucagen) 1 mg Q15M PRN IM DECREASED GLUCOSE; Start 04/04/17 at 11:30 Glucose (Glutose) 15 gm Q15M PRN BUCCAL DECREASED GLUCOSE; Start 04/04/17 at 11 :30 Diagnostic Test (Pha) (Accu-Chek) 1 ea 02 XX ; Start 04/05/17 at 02:00 Insulin Detemir (Levemir) 26 unit DAILY@20 SC Last administered on 04/04/17t 21 :16; Admin Dose 26 UNIT; Start 04/04/17 at 20:00 RANDY ERVIN MD Apr 05, 2017 14:01
[2017-04-05 15:57] VITALS: BP 92/51; PULSE 70; RESP 17
[2017-04-05 19:40] VITALS: BP 112/61; PULSE 85; RESP 18
--- NOTE | 2017-04-05 20:24 | QN ---
Documentation Comment No complaint Afebrile VSS Fundus Firm Hgb 7 Stable Fe supplement DM management per Endocrinology. SUDHA LOBATO MD Apr 05, 2017 20:24
[2017-04-05] MEDS: INSULIN DETEMIR [LEVEMIR] 3ML CART SC SCH (20:55)
[2017-04-06] MEDS: ACCU-CHEK XX SCH ×5 (02:00→20:09)
[2017-04-06 04:00] VITALS: BP 90/51; PULSE 77; RESP 17
[2017-04-06] MEDS: IBUPROFEN 600 MG TAB PO SCH ×4 (05:07→23:50)
[2017-04-06 08:00] VITALS: BP 110/57; PULSE 73; RESP 20
[2017-04-06] MEDS: INSULIN ASPART [NOVOLOG] 3 ML PEN SC SCH ×3 (08:47→17:48)
[2017-04-06] MEDS: SENNA/DOCUSATE NA (8.6MG/50MG) TAB PO SCH ×2 (08:48→20:46)
[2017-04-06] MEDS: MULTIVITAMINS THERAPEUTIC TAB PO SCH (08:48)
[2017-04-06] MEDS: FOLIC ACID 1 MG TAB PO SCH (08:48)
[2017-04-06] MEDS: FERROUS SULFATE (EC) 325 MG TAB PO SCH ×3 (08:48→20:46)
[2017-04-06] MEDS: metFORMIN 500 MG TAB PO SCH ×2 (08:48→17:47)
[2017-04-06] MEDS ORDERED: DIPHTH/TET/ACEL PERTUSS (ADULT) 0.5 ML VIAL IM* ONE (09:00)
[2017-04-06 09:09] LABS: ABNORMAL IP MESSAGE 1; HEMATOCRIT 19.2 % (37.0-47.0); MEAN CORPUSCULAR HEMOGLOBIN 27.8 pg (29.0-33.0); MEAN CORPUSCULAR HGB CONC 32.8 g/dl (32.0-37.0); MEAN CORPUSCULAR VOLUME 84.6 fl (82.0-101.0); MEAN PLATELET VOLUME 10.4 fl (7.4-10.4); PLATELET COUNT 191 10^3/UL (140-415); RED BLOOD COUNT 2.27 10^6/ul (4.20-5.40); RED CELL DISTRIBUTION WIDTH 13.3 % (11.5-14.5); WHITE BLOOD COUNT 8.9 10^3/ul (4.8-10.8)
[2017-04-06 09:22] LABS: HEMOGLOBIN 6.3 g/dl (12.0-16.0); POSITIVE DIFF @See below
[2017-04-06 10:27] LABS: EOSINOPHILS # 0.1 10^3/ul (0.0-0.5); LYMPHOCYTES # 2.5 10^3/ul (0.8-2.9); MONOCYTE # 0.2 10^3/ul (0.3-0.9); NEUTROPHIL # 6.1 10^3/ul (1.6-7.5)
[2017-04-06 10:28] LABS: HYPOCHROMASIA 1+ (0-0)
--- NOTE | 2017-04-06 15:41 | CONS ---
Date/Time of Note Date/Time of Note DATE: 04/06/17 TIME: 15:39 Assessment/Plan Assessment/Plan Problems: (1) Diabetes mellitus type 2 in obese Status: Chronic Comment: Good glycemic control on current basal bolus regimen with Levemir and Novolog plus metformin. Will continue with this regimen at time of discharge. Consultation Date/Type/Reason Admit Date/Time Mar 14, 2017 at 13:46 Initial Consult Date 04/04/17 Type of Consultation: Endocrinology Referring Provider: SUDHA LOBATO MD 24 HR Interval Summary Free Text/Dictation No complaints at this time. Exam/Review of Systems Vital Signs Vitals Vital Signs Date Time Temp Pulse Resp B/P Pulse Ox O2 Delivery O2 Flow Rate FiO2 04/06/17 08:00 98.0 73 20 110/57 Room Air 04/04/17 10:50 98 Exam Constitutional: alert, oriented Neck: supple Respiratory: clear to auscultation Cardiovascular: regular rate and rhythm Musculoskeletal: nl extremities to inspection Results Vitals, labs and POC glucose reviewed Result Diagram: 04/06/17 0855 Results 24 hrs Laboratory Tests Test 04/05/17 20:48 04/06/17 02:03 04/06/17 08:30 04/06/17 08:55 Bedside Glucose 131 178 105 White Blood Count 8.9 Red Blood Count 2.27 L Hemoglobin 6.3 *L Hematocrit 19.2 L Mean Corpuscular Volume 84.6 Mean Corpuscular Hemoglobin 27.8 L Mean Corpuscular Hemoglobin Concent 32.8 Red Cell Distribution Width 13.3 Platelet Count 191 Mean Platelet Volume 10.4 Neutrophils % 69.0 Lymphocytes % 28.0 Monocytes % 2.0 Eosinophils % 1.0 Basophils % Nucleated Red Blood Cells % 0.0 Neutrophils # 6.1 Lymphocytes # 2.5 Monocytes # 0.2 L Eosinophils # 0.1 Basophils # Nucleated Red Blood Cells # Hypochromasia 1+ Test 04/06/17 11:13 04/06/17 14:35 Bedside Glucose 143 123 Medications Medications Current Medications Diagnostic Test (Pha) (Accu-Chek) 1 ea FBSPP XX Last administered on 04/04/17 13:50; Admin Dose 1 EA; Start 03/14/17 at 20:05 Ferrous Sulfate (Ferrous Sulfate (Ec)) 325 mg TID PO Last administered on 13:09; Admin Dose 325 MG; Start 04/04/17 at 09:00 Folic Acid (Folic Acid) 1 mg DAILY PO Last administered on 04/06/17 08:48; Admin Dose 1 MG; Start 04/04/17 at 09:00 Multivitamins Therapeutic (Theragran) 1 tab DAILY PO Last administered on 08:48; Admin Dose 1 TAB; Start 04/04/17 at 09:00 Ibuprofen (Motrin) 600 mg Q6 PO Last administered on 04/06/17 12:14; Admin Dose 600 MG; Start 04/04/17 at 12:00 Acetaminophen (Tylenol Tab) 650 mg Q4H PRN PO PAIN LEVEL 1-5; Start 04/04/17 at 09:00 Acetaminophen/ Codeine Phosphate (Tylenol No.3) 1 tab Q4H PRN PO PAIN LEVEL 1-5 ; Start 04/04/17 at 09:00 Senna/Docusate Sodium 1 tab 1 tab BID PO Last administered on 04/06/17 08:48; Admin Dose 1 TAB; Start 04/04/17 at 09:00 Oxytocin/Lactated Ringer's 500 ml @ 0 mls/hr ONCE PRN IV For Hemorrhage Management; Start 04/04/17 at 09:00 Methylergonovine Maleate (Methergine) 0.2 mg ONCE PRN IM VAGINAL BLEEDING; Start 04/04/17 at 09:00 Carboprost Tromethamine (Hemabate) 250 mcg ONCE PRN IM VAGINAL BLEEDING; Start 04/04/17 at 09:00 Misoprostol (Cytotec) 1,000 mcg ONCE PRN ND VAGINAL BLEEDING; Start 04/04/17 at 09:00 Miscellaneous Information 1 ea NOTE XX ; Start 04/04/17 at 11:30 Glucose (Glutose) 15 gm Q15M PRN PO DECREASED GLUCOSE; Start 04/04/17 at 11:30 Glucose (Glutose) 22.5 gm Q15M PRN PO DECREASED GLUCOSE; Start 04/04/17 at 11: 30 Dextrose (D50w Syringe) 25 ml Q15M PRN IV DECREASED GLUCOSE; Start 04/04/17 at 11:30 Dextrose (D50w Syringe) 50 ml Q15M PRN IV DECREASED GLUCOSE; Start 04/04/17 at 11:30 Glucagon (Glucagen) 1 mg Q15M PRN IM DECREASED GLUCOSE; Start 04/04/17 at 11:30 Glucose (Glutose) 15 gm Q15M PRN BUCCAL DECREASED GLUCOSE; Start 04/04/17 at 11 :30 Diagnostic Test (Pha) (Accu-Chek) 1 02 XX ; Start 04/05/17 at 02:00 Insulin Detemir (Levemir) 34 unit DAILY@20 SC Last administered on 04/05/17t 20 :55; Admin Dose 34 UNIT; Start 04/05/17 at 20:00 FAUSTINA TYLER MD Apr 06, 2017 15:41
[2017-04-06 16:03] VITALS: BP 105/53; PULSE 84; RESP 18
[2017-04-06 16:05] VITALS: BP 105/56; RESP 87
--- NOTE | 2017-04-06 16:10 | QN ---
Documentation Comment No complaint. Patient denies dizziness and ambulating without difficulty. Afebrile VSS No significant change in BP and HR with patient lying down and sitting. Fundus firm Lochia scant Hgb 6.3 Continue with Fe supplement Repeat CBC in AM. SUDHA LOBATO MD Apr 06, 2017 16:10
[2017-04-06] MEDS ORDERED: FER325 PO (16:12)
[2017-04-06] MEDS: INSULIN DETEMIR [LEVEMIR] 3ML CART SC SCH (20:08)
[2017-04-06 20:45] VITALS: BP 110/57; PULSE 74; RESP 18
[2017-04-07] MEDS: ACCU-CHEK XX SCH ×4 (02:05→15:02)
[2017-04-07 04:00] VITALS: BP 105/57; PULSE 79; RESP 17
[2017-04-07] MEDS: IBUPROFEN 600 MG TAB PO SCH ×3 (05:45→17:50)
[2017-04-07] MEDS ORDERED: CARBOPROST 250 MCG INJ ONE (07:00)
[2017-04-07 08:20] VITALS: BP 113/59; PULSE 86; RESP 18
[2017-04-07] MEDS: INSULIN ASPART [NOVOLOG] 3 ML PEN SC SCH ×3 (08:23→17:50)
[2017-04-07] MEDS: metFORMIN 500 MG TAB PO SCH ×2 (08:24→17:50)
[2017-04-07] MEDS: FERROUS SULFATE (EC) 325 MG TAB PO SCH ×2 (08:27→12:37)
[2017-04-07] MEDS: FOLIC ACID 1 MG TAB PO SCH (08:27)
[2017-04-07] MEDS: SENNA/DOCUSATE NA (8.6MG/50MG) TAB PO SCH (08:27)
[2017-04-07] MEDS: MULTIVITAMINS THERAPEUTIC TAB PO SCH (08:27)
[2017-04-07 08:43] LABS: BASOPHILS % 0.2 % (0.0-2.0); EOSINOPHILS # 0.2 10^3/ul (0.0-0.5); HEMATOCRIT 22.1 % (37.0-47.0); HEMOGLOBIN 7.2 g/dl (12.0-16.0); LYMPHOCYTES # 2.2 10^3/ul (0.8-2.9); LYMPHOCYTES % 22.8 % (15.0-51.0); MEAN CORPUSCULAR HEMOGLOBIN 27.7 pg (29.0-33.0); MEAN CORPUSCULAR HGB CONC 32.6 g/dl (32.0-37.0); MEAN PLATELET VOLUME 10.4 fl (7.4-10.4); MONOCYTE # 0.5 10^3/ul (0.3-0.9); NEUTROPHIL # 6.7 10^3/ul (1.6-7.5); NEUTROPHILS % 69.4 % (39.0-77.0); PLATELET COUNT 255 10^3/UL (140-415); RED CELL DISTRIBUTION WIDTH 13.1 % (11.5-14.5); WHITE BLOOD COUNT 9.7 10^3/ul (4.8-10.8)
--- NOTE | 2017-04-07 15:41 | CONS ---
Date/Time of Note Date/Time of Note DATE: 04/07/17 TIME: 15:38 Assessment/Plan Assessment/Plan Problems: (1) Diabetes mellitus type 2 in obese Status: Chronic Comment: Good glycemic control on current insulin regimen of basal and prandial bolus. Additional Assessment/Plan Continue Levemir 34 units and Novolog 14 units TID AC Consultation Date/Type/Reason Admit Date/Time Mar 14, 2017 at 13:46 Initial Consult Date 04/04/17 Type of Consultation: Endocrinology Referring Provider: SUDHA LOBATO MD Exam/Review of Systems Vital Signs Vitals Vital Signs Date Time Temp Pulse Resp B/P Pulse Ox O2 Delivery O2 Flow Rate FiO2 04/07/17 08:20 98.1 86 18 113/59 Room Air 04/04/17 10:50 98 Results POC glucose reviewed Result Diagram: 04/07/17 0745 Results 24 hrs Laboratory Tests Test 04/06/17 17:45 04/06/17 20:05 04/07/17 02:00 04/07/17 07:45 Bedside Glucose 159 164 100 White Blood Count 9.7 Red Blood Count 2.60 L Hemoglobin 7.2 L Hematocrit 22.1 L Mean Corpuscular Volume 85.0 Mean Corpuscular Hemoglobin 27.7 L Mean Corpuscular Hemoglobin Concent 32.6 Red Cell Distribution Width 13.1 Platelet Count 255 # Mean Platelet Volume 10.4 Neutrophils % 69.4 Lymphocytes % 22.8 Monocytes % 5.0 Eosinophils % 2.0 Basophils % 0.2 Nucleated Red Blood Cells % 0.0 Neutrophils # 6.7 Lymphocytes # 2.2 Monocytes # 0.5 Eosinophils # 0.2 Basophils # 0.0 Nucleated Red Blood Cells # 0.0 Test 04/07/17 08:13 04/07/17 11:21 04/07/17 12:41 04/07/17 15:06 Bedside Glucose 90 70 147 156 Medications Medications Current Medications Diagnostic Test (Pha) (Accu-Chek) 1 ea FBSPP XX Last administered on 04/06/17 20:09; Admin Dose 1 EA; Start 03/14/17 at 20:05 Ferrous Sulfate (Ferrous Sulfate (Ec)) 325 mg TID PO Last administered on 12:37; Admin Dose 325 MG; Start 04/04/17 at 09:00 Folic Acid (Folic Acid) 1 mg DAILY PO Last administered on 04/07/17 08:27; Admin Dose 1 MG; Start 04/04/17 at 09:00 Multivitamins Therapeutic (Theragran) 1 tab DAILY PO Last administered on 08:27; Admin Dose 1 TAB; Start 04/04/17 at 09:00 Ibuprofen (Motrin) 600 mg Q6 PO Last administered on 04/07/17 12:37; Admin Dose 600 MG; Start 04/04/17 at 12:00 Acetaminophen (Tylenol Tab) 650 mg Q4H PRN PO PAIN LEVEL 1-5; Start 04/04/17 at 09:00 Acetaminophen/ Codeine Phosphate (Tylenol No.3) 1 tab Q4H PRN PO PAIN LEVEL 1-5 ; Start 04/04/17 at 09:00 Senna/Docusate Sodium 1 tab 1 tab BID PO Last administered on 04/07/17 08:27; Admin Dose 1 TAB; Start 04/04/17 at 09:00 Oxytocin/Lactated Ringer's 500 ml @ 0 mls/hr ONCE PRN IV For Hemorrhage Management; Start 04/04/17 at 09:00 Methylergonovine Maleate (Methergine) 0.2 mg ONCE PRN IM VAGINAL BLEEDING; Start 04/04/17 at 09:00 Carboprost Tromethamine (Hemabate) 250 mcg ONCE PRN IM VAGINAL BLEEDING; Start 04/04/17 at 09:00 Misoprostol (Cytotec) 1,000 mcg ONCE PRN NE VAGINAL BLEEDING; Start 04/04/17 at 09:00 Miscellaneous Information 1 ea NOTE XX ; Start 04/04/17 at 11:30 Glucose (Glutose) 15 gm Q15M PRN PO DECREASED GLUCOSE; Start 04/04/17 at 11:30 Glucose (Glutose) 22.5 gm Q15M PRN PO DECREASED GLUCOSE; Start 04/04/17 at 11: 30 Dextrose (D50w Syringe) 25 ml Q15M PRN IV DECREASED GLUCOSE; Start 04/04/17 at 11:30 Dextrose (D50w Syringe) 50 ml Q15M PRN IV DECREASED GLUCOSE; Start 04/04/17 at 11:30 Glucagon (Glucagen) 1 mg Q15M PRN IM DECREASED GLUCOSE; Start 04/04/17 at 11:30 Glucose (Glutose) 15 gm Q15M PRN BUCCAL DECREASED GLUCOSE; Start 04/04/17 at 11 :30 Diagnostic Test (Pha) (Accu-Chek) 1 ea 02 XX Last administered on 04/07/17 02: 05; Admin Dose 1 EA; Start 04/05/17 at 02:00 Insulin Detemir (Levemir) 34 unit DAILY@20 SC Last administered on 04/06/17 20 :08; Admin Dose 34 UNIT; Start 04/05/17 at 20:00 FAUSTINA TYLER MD Apr 07, 2017 15:41
[2017-04-07 16:20] VITALS: BP 126/81; PULSE 86; RESP 19
--- NOTE | 2017-04-08 11:32 | DS ---
DATE OF ADMISSION: 03/14/2017 DATE OF DISCHARGE: 04/07/2017 ADMITTING DIAGNOSES: 1. at 34 weeks with insulin-dependent diabetes mellitus, uncontrolled, 2. labor. HISTORY OF PRESENT ILLNESS: This is a 41-year-old female, 5, para 1-1-2-2 at the time of admission, para at the time of discharge. At 34 weeks' gestation presented with contractions. Patient with history of insulin-dependent diabetes mellitus. Patient's diabetes had been poorly controlled, and patient has been noncompliant with using insulin as an outpatient. HOSPITAL COURSE: The patient was admitted on March 14, 2017. The patient was noted to have labor contractions. The patient was dilated to 3 cm dilation. The patient's contractions spaced out; however, patient continued to have premature contractions. The patient was seen by perinatology. Recommendation of the perinatologist was to keep the patient in the hospital since the patient was already dilated. Also, recommendation of perinatologist was to adjust the insulin regimen to better control her diabetes. The patient was followed by perinatologist, and the insulin was adjusted and patient's diabetes improved. Recommendation of perinatologist was to induce labor at 37 weeks due to poorly controlled diabetes mellitus. At 37 weeks' gestation patient was given induction of labor. The patient had a spontaneous vaginal delivery on April 06, 2017. The patient had a hemorrhage, and the patient became anemic. The patient was placed on iron supplementation. The patient remained hemodynamically stable; therefore, there was no need for blood transfusion. During the course endocrinology consultation was requested, and the patient's diabetes was controlled by liquid compounder. Patient is discharged on April 07, 2017, day number 3, after having been hemodynamically stable and her diabetes controlled. DISCHARGE CONDITION: Stable. DISCHARGE INSTRUCTIONS: Diet: 1800-calorie, ADA diet. ACTIVITIES: Pelvic rest. MEDICATION: 1. Ferrous sulfate 325 mg p.o. 3 times a day. 2. Folic acid 1 mg daily. 3. Multivitamins once daily. 4. Continue with insulin regimen per liquid compounder. FOLLOWUP: Follow up in clinic in 2 weeks. FINAL DIAGNOSES: 1. Term , delivered vaginally. 2. hemorrhage. 3. Anemia associated with acute blood loss. 4. Insulin-dependent diabetes mellitus. 5. Threatened labor. 6. Mother with single live born. Dictated By: Wilmer Pacheco MD /[email or web address] /Document#: [id number]
== END 2017-04-07 19:55 | disposition home or self-care (01) | DRG 774 ==
LOC: OBG 13:46 → L-D 03-15 03:07 → OBG 03-17 16:39 → L-D 04-03 15:41 → PP1 04-04 08:31 → EDSTATUS 04-24 11:16
PROVIDERS: ADMIT Obstetrics & Gynecology; ATTEND Obstetrics & Gynecology
PROC: 4A1HXCZ Monitoring of Products of Conception, Cardiac Rate, External Approach (ICD-10-PCS; 2017-03-14)
PROC: 10E0XZZ Delivery of Products of Conception, External Approach (ICD-10-PCS; principal; 2017-04-04)
PROC: 0KQM0ZZ Repair Perineum Muscle, Open Approach (ICD-10-PCS; 2017-04-04)
DX: O60.23X1 Term delivery with preterm labor, third trimester, fetus 1 (principal); O24.12 Pre-existing type 2 diabetes mellitus, in childbirth; K76.0 Fatty (change of) liver, not elsewhere classified; O10.92 Unspecified pre-existing hypertension complicating childbirth; O24.424 Gestational diabetes mellitus in childbirth, insulin controlled; E78.5 Hyperlipidemia, unspecified; O99.02 Anemia complicating childbirth; O72.1 Other immediate postpartum hemorrhage; D62 Acute posthemorrhagic anemia; O70.1 Second degree perineal laceration during delivery; Z3A.37 37 weeks gestation of pregnancy; Z37.0 Single live birth; Z79.4 Long term (current) use of insulin; Z91.14 Patient's other noncompliance with medication regimen
CPT/HCPCS: 76815; 76816; 76818; 80053; 81001; 82962; 83036; 84443; 85025; 85610; 85730; 86592; 86803; 86900; 86901; 87081; 87340; 90715; J0290; J0690; J1815; J2210; J2270; J2590; J7120; J7121